=== PATIENT | female | born 1985 | race Caucasian/White ===

== ENCOUNTER → 2017-12-13 18:28 | Outpatient (CLI) | payer BC, SELFPAY ==
[2017-12-13 12:11] VITALS: BP 104/68; BMI 19.0
--- OUTSIDE RECORDS SUMMARY | 2017-12-13 18:32 | XMS RPT_ITS ---
:1985 Author Organization OHIP Support Name Relationship Address Phone B M [employer] Unavailable [facility] + [place] [address] GESSEL, NIHARIKA Unavailable [address] + [place] [address] B [employer] Unavailable [facility] + [place] [address] GESSEL, NIHARIKA Unavailable [address] + [place] [address] [employer] Unavailable [facility] + [place] [address] CLEMENT ARRIAGA Unavailable [address] + [place] [address] [employer] Unavailable [facility] + [place] [address] CLEMENT ARRIAGA Unavailable [address] + [place] [address] [employer] Unavailable [facility] + [place] [address] CLEMENT ARRIAGA Unavailable [address] + [place] [address] [employer] Unavailable [facility] + [place] [address] CLEMENT ARRIAGA Unavailable [address] + [place] [address] Care Team Providers Name Role Phone Myah Badillo Attending Unavailable Myah Badillo Primary Care Unavailable Myah Badillo Attending Unavailable Myah Badillo Primary Care Unavailable Myah Badillo Attending Unavailable Myah Badillo Primary Care Unavailable Myah Badillo Attending Unavailable Myah Badillo Primary Care Unavailable Hector Dakota Attending Unavailable AbyMyah brown Referring Unavailable AbyLuci brownMyah Primary Care Unavailable AbelardoPrem hawkins Attending Unavailable Aby, Myah Referring Unavailable Aby, Myah Primary Care Unavailable PROBLEMS PROBLEMS DATE TYPE CONDITION / CODE ATTENDING STATUS SOURCE 12/13/2017 Unknown J02.9 - Acute Prem Melendez Active [facility] pharyngitis, Community unspecified / Hospital J02.9(ICD-10) Repository 12/13/2017 Unknown J06.9 - Acute Prem Melendez Active [facility] upper respiratory Community infection, Hospital unspecified / Repository J06.9(ICD-10) 08/25/2017 Unknown GENERALIZED Aby, Active [facility] ABDOMINAL PAIN / [facility] R10.84(ICD-10) Hospital Repository 07/22/2017 Unknown EPIGASTRIC PAIN / Aby, Active [facility] R10.13(ICD-10) [facility] Repository PROCEDURES PROCEDURES No Procedure Records FoundRESULTS RESULTS URGENT CARE VISIT Observed: 12/13/2017 Status: F Source: [place] 12:26 PM [facility] REPOSITORY Now [id number] [phone] VISITDate of Service: 12/13/17MR#: [id number] Acct: [id number]: BRENNEN ARRIAGA Rep #: [id number]: 1985 Provider: Prem Recinos/Sex: 32/F [facility] [place]Status: SignedIntakeVital Signs12/13/17 Height 5 ft 3.5 inIntakeVisit Reasons: SORE THROAT, EAR ACHEChief Complaint: sore throat, ear acheIs patient in pain?: NoAllergiesciprofloxacin [From Cipro] Allergy (Verified 12/13/17 12:12)Anaphylaxisciprofloxacin HCl [From Cipro] Allergy (Verified 12/13/17 12:12)AnaphylaxisMedicationsbuspirone 15 mg tablet 15 mg PO BID 11/25/17 [ History Confirmed 12/13/17]pantoprazole 40 mg tablet,delayed release 40 mg PO QDAY [History Confirmed 12/13/17]PFSHMedical HistoryAbdominal pain (Acute)Acid reflux (Acute)Anxiety (Acute)Diarrhea (Acute)Factor 5 Leiden mutation, heterozygous (Acute)Nausea AND vomiting (Acute)history right ankle surgery (Acute 2008) Family HistoryFather Bleeding disorderBrother Bleeding disorderGrandfather DiabetesHeart diseaseHigh cholesterolGrandmother High cholesterolHypertensionMother High cholesterolHypertensionSocial HistorySmoking Status: Never smokeralcohol intake: neversubstance use type: does not useHPIHPIChief Complaint: sore throat, ear acheDetails: BRENNEN ARRIAGA, is a 32 F who presents to the office today for initial evaluation2-3 day history of progressively worsening sore throat and bilateral earache. Patient notes nonasal congestion or facial pressure and no postnasal drip. She notes no complaints of fever,chills, sweats, rash, chest pain/shortness of breath. She is non-smoker. She notes no otherfamily members with similar signs or symptoms in her household. She notes no other associatedsymptoms and no other alleviating or aggravating factorsROSConstConstitutional: Positive for chills;no fever(s), night sweats, body ache, abnormal sleep pattern or excessive sweatingEyesEyes: No change in visionENTENT: Positive for ear pressure and sore throat;no abnormal hearing, ear pain, ear discharge, hearing loss, post nasal drip or sinus pressureRespRespiratory: No cough or chest congestionCardioCardiology: No excessive sweating, chest pain at rest, chest pain with exertion, shortness ofbreath, dyspnea on exertion, irregular heart rhythm, generalized swelling or leg pain withexertionGastroGI: No abdominal pain, change in stool character or change in bowel habitsMuscMusculoskeletal: No joint pain, back pain or limited range of motionSkinSkin: No change in hair, sores or rashNeuroNeurology: No abnormal speech, abnormal movements or abnormal hearingPsychPsychiatric: No abnormal sleep patternEndoEndocrine: No change in body appearance, cold intolerance, heat intolerance or excessivesweatingAller/ImmAllergy/Immunologic: No food intoleranceHema/LympHematologic/Lymphatic: No easy bruisingExamConstGeneral: cooperative, healthy appearing, no acute distress, comfortableNutritional Appearance: average body habitusOrientation: alert, awake, oriented o9YGAOYRque: normal to inspectionEars: hearing grossly normal bilaterally, external ears normal, TM's normal bilaterally, EAC'snormalNose: external nose normal, nares normal, septum normal , nasal discharge clearEyesGeneral: appearance normal, both eyes and all related structuresNeckNeck: normal visual inspection, full ROM, no meningeal signs, supple, lymphadenopathyNeck mass: NoThyroid: thyroid normalLymphatic: no lymphadenopathy notedChestChest palpation AND inspection: normal inspection of the chestRespEffort AND Inspection: normal respiratory effort, able to speak in complete sentences , symmetricchest movement, no coughAuscultation: Bilateral: Clear to AuscultationCardioPalpation: normal PMIRate: regular rateRhythm: regular rhythmHeart Sounds: S1 normal, S2 normal, no gallops, no murmurs, no rubsPulses: radial pulses presentGIInspection: normal to inspectionPalpation: soft, no hepatosplenomegalySkinGeneral: no rashes or lesions notedNeuroGeneral: alert, awake, oriented x3, gait normalCognition: normal cognitionSpeech: speech normalGait: normal gaitMotor: muscle tone normal throughoutSensory Exam: no sensory deficits notedExtremGeneral: normal to inspectionPsychAppearance: grossly normalMental Status: mental status grossly normalMood: congruent moodAffect: normal affectSpeech and Movement: speech and movement normalAttitude: cooperativeThought Process: normalThought Content: normalJudgment: judgment goodResultsBMSRAPIDSTREPAOffice Rapid Strep A Negative Last Edit by Purnima Ramos on 12/13/17 12: 25Assessment AND PlanProblems1. URI (upper respiratory infection) J06.92. Pharyngitis J02.9PlanPatient is aware today's rapid strep test was negative therefore throat culture sent to lab forfurther evaluation.Clear fluids, rest, Advil/Tylenol as needed for symptomatic relief.Follow-up with PCP in 7-10 days should symptoms not improve, sooner should symptoms worsen orany other concerns develop.This note was generated with Offerboxxation software. It may contain incorrect words,spelling, and punctuation that were not noted in checking the note before signing.OrdersOrders:MedicationsDiscontinued:naproxen Discontinued Reason: Pt250 - 500 mg PO Q8H PRN PRN MILD PA Purnima Orlando longer taking IN (-01/15)CodingLevel of Care CodeOff vis,new,level 3DiagnosesURI (upper respiratory infection) J06.9Pharyngitis J02.9012/13/17 1226 <Electronically signed by Prem NAZARIO>Date Prem Melendez PACosigner Signature: Date (if applicable)CC: SURGERY VISIT REPORT Observed: 11/25/2017 Status: F Source: [place] 7:01 PM [facility] REPOSITORY [facility] [address] [place] [address] [id number] VISITDate of Service: 11/25/17MR#: [id number] Acct: [id number]: BRENNEN ARRIAGA Rep #: [id number]: 1985 Provider: Dakota Young MDAge/Sex: 32/F [facility] [place]Status: SignedIntakeVital Signs11/25/17 Height 5 ft 4 in11/25/17 Weight: 108 lbIntakeVisit Reasons: upper right quad pain, nausea, had normal u/sInterpreter Required: NoIs patient in pain?: NoAllergiesciprofloxacin [From Cipro] Allergy (Verified 11/25/17 10:31)Anaphylaxisciprofloxacin HCl [From Cipro] Allergy ( Verified 11/25/17 10:31)AnaphylaxisMedicationsNaproxen [Naprosyn] 250 - 500 mg PO Q8H PRN PRN #30 tab 10/10/15 [Rx Confirmed 11/25/17]buspirone 15 mg tablet 15 mg PO BID [History Confirmed 11/25/17]pantoprazole 40 mg tablet,delayed release 40 mg PO QDAY 11/25/17 [History Confirmed 11/25/17]PFSHMedical History Abdominal pain (Acute)Acid reflux (Acute)Anxiety (Acute) Diarrhea (Acute)Nausea AND vomiting (Acute)history right ankle surgery (Acute 2008) Family HistoryFather Bleeding disorderBrother Bleeding disorderGrandfather DiabetesHeart diseaseHigh cholesterolGrandmother High cholesterolHypertensionMother High cholesterolHypertensionSocial HistorySmoking Status: Never smokeralcohol intake: neversubstance use type: does not useHPIHPIHPI: BRENNEN ARRIAGA, is a 32 F who presents to the office today for who is referred by today for surgical consultation regarding epigastric pain with some right upper quadrantpain with radiation to the right back. A written copy of my surgical consult recommendationswill be returned to Dr. Ugalde.The patient states that since the spring 2016 she has been having difficulty. She notes adiscomfort in the left upper quadrant and she notes a discomfort in the right upper quadrantsometimes in the epigastrium it radiates to the right flank. She states that she hadlaboratory that detected H pylori was positive. She states that she underwent a course oftreatment.I have evidence of laboratory dated July 09, 2017 demonstrating a IGG antibody for H.pylori at 1 with normal being 0-0.8. The H. pylori IgA antibody was normal the H. pylori IgMantibody was normalAdditional laboratory data White count 6.5 and hemoglobin 13.5 and hematocrit 41 and a plateletcount of 419,000. BUN was 7 and creatinine 0.71. Liver function tests were normal with atotal bilirubin of 0.5. AST of 14. Amylase of 106. Lipase of 374 with high normal being 393.Sed rate was 1.On July 15, 2017 she had a gallbladder ultrasound. This was normal. On November 22, 2017she had a nuclear medicine hepatobiliary scan. The ejection fraction was 48% felt to benormal. There was some duodenal gastric reflux noted.The patient states that she has lost approximately 15 pounds. She currently is a very pounds.She denies any particular additional stressors in her life. She presents with her father todayand states that she lives with her fatherShe currently still taking pantoprazole 40 mg daily. She states that she exists on crackersand dry cereal. She cannot eat spicy foods.She denies bright red blood per rectum or melena. She occasionally takes Tums.She has never had deep venous thrombosis although because her father was positive for factor VLeiden she was tested and she is also positiveROSGeneralGeneral: Yes weight change;no appetite, fatigue, colon cancer , breast cancer or weaknessHEENTHEENT: No difficulty swallowing, eye injury, eye surgery, swollen glands or hoarsenessEndoEndocrine: No thyroid disease, diabetes mellitus, thyroid cancer, Hair loss, heat intoleranceor cold intoleranceSkinSkin: No rash or changing molesBreastBreast: No left breast lump, right breast lump, nipple discharge, breast pain, abnormalmammogram, abnormal US or breast enlargementMuscMusculoskeletal: No back problems, arthritis, rheumatoid arthritis, gout or joint painCardioCardiovascular: No murmur, pacemaker, heart disease, atrial fibrillation, high blood pressure,heart attack, heart stent, palpitations, shortness of breat with exertion or chest painPsychPsychiatric: Yes anxiety;no depression or hearing voicesRespRespiratory: No shortness of breath, No sleep apnea, No cough , No COPD, No asthma, Noemphysema, No wheezingGastroGastrointestinal: Yes abdominal pain, Yes nausea or vomiting, Yes diarrhea, No constipation, Noblood in stool, Yes acid reflux, No hemorrhoids, No ulcers, Yes gallbladder problem, Noblack,tarry stoolsHemaHematologic: No blood thinners, Yes blood disorders, No bleeding, No anemia, No blood clotsNeuroNeurologic: No system reviewed and no additional complaints, except as docu, No as per HPI, Noabnormal walking, No abnormal hearing, No abnormal movements, No abnormal speech, No behavioralchanges, No burning sensations, No confusion, No seizure-like activity, No unsteadiness, Nodizziness, No localized weakness, No frequent falls, No headache(s), No lack of coordination, No loss of vision, No memory loss, No numbness, No other visual disturbances, No radiatingpain, No restless legs, No sensory deficit, No fainting, No tingling, No tremor(s), Noweakness, No otherExamConstGeneral: cooperative, healthy appearingNutritional Appearance: underweightOrientation: alert, oriented h2SLLWFKxpu: normal to inspectionMouth: oral mucosae normalEyesGeneral: appearance normal, both eyes and all related structuresNeckNeck: normal visual inspectionNeck mass: NoCarotids: normal carotid upstroke, no bruitsLymphatic: no lymphadenopathy notedChestChest palpation AND inspection: normal inspection of the chestBreast Palpation: No nipple dischargeRespEffort AND Inspection: normal respiratory effortAuscultation: clear to auscultation bilaterallyOther: No percussion tenderness to her backCardioRate: regular rateRhythm: regular rhythmHeart Sounds: no murmursGIPalpation: soft, no hepatosplenomegaly, no pulsatile massesAuscultation: normal bowel soundsGUOther: No gross inguinal defectNeuroCranial Nerves: CN's II-XI intact bilaterallyExtremGeneral: no calf tendernessPsychAffect: anxious affect (Mildly anxious affect)Assessment AND PlanProblems1. Epigastric pain [id number]-[id number] female who is noting epigastric with some right upper quadrant abdominal pain. Shecertainly appears to be underweight. She has had the acute weight loss as noted. Liverfunction tests gallbladder ultrasound and hepatobiliary scan all unremarkable.Etiology to this patient's discomfort is not immediately clear. I believe based upon theintolerance to food that an upper endoscopy is warranted. The hepatobiliary scan diddemonstrate to duodenal gastric reflux. Perhaps she has a degree of bile gastritis. Irecommend very careful inspection with upper endoscopy. Will anticipate duodenal and gastricand esophageal biopsies.The patient's personal/social dynamics are not clear. I am not aware whether there could be apsychosocial overlay as well but I will defer to primary care Dr. Fernández certainly appreciate the kind opportunity of assisting with her surgical careCc: Dr. Harini Young M.D., F.A.C.S.OrdersOrders:CodingLevel of Care CodeComprehensive,moderateDiagnosesEpigastric pain R10.13Abdominal location: hegfzoktpt34/18/181900 <Electronically signed by Dakota Young MD> Date [place] [facility] [place]: Date (if applicable)CC: Myah Badillo DO HEPATOBILLIARY IMAGING Observed: 11/22/2017 Status: F Source: [place] 12:29 PM [facility] REPOSITORY [facility]ITALIm[facility] [address] [place] [address]Chkellerhrjxtp ImagingMR#: [id number] Acct: [id number]: BRENNEN ARRIAGA Rep #: [id number]: 1985 F 32 From: Osmin Brizuela DOPCP: Myah Badillo DO Status: REG CLIStudy: Hepatobilliary Imaging Date of Exam: 11/22/17Exam# [id number] Ordering Dr: Myah Badillo DOCLINICAL:32-year-old female with reported history of abdominal pain.RADIONUCLIDE HEPATOBILIARY SCINTIGRAPHYCOMPARISON:Previous non-CCK hepatobiliary scintigraphy study dated 08/16/2017FINDINGS:Following the intravenous administration of 5.5 mCi of Tc Mebrofenin,hepatobiliary images reveal:1. Relatively prompt and homogeneous radiopharmaceutical concentration isnoted by a normal sized liver. No parenchymal defects are identified.2. Gallbladder activity is identified at 15 minutes postradiopharmaceutical administration.3. Small intestinal tract is not visualized during 60 minutes of pre-CCKsequential image acquisition. Small bowel is defined followingcholecystokinin infusion.4. Washout of the radiopharmaceutical by the hepatic parenchyma appearsqualitatively normal.Cholecystokinin (0.02 ug/kg ) was administered intravenously over b06-idhyus period. The post CCK gallbladder ejection fraction calculated at30 minutes following Cholecystokinin administration was noted to be 48.0 %(normal greater than 35%). During 30 minutes of post CCK imaging, there isno scintigraphic evidence of reflux of the radiotracer into the commonhepatic duct or refilling of the gallbladder. There is evidence of post CCKduodenal-gastric reflux. NM/Hepatobilliary ImagingIMPRESSION:1. A gallbladder ejection fraction calculated to be greater than 35%following the administration of Cholecystokinin makes the probability offunctional hepatobiliary disease (gallbladder and/or sphincter of Oddidyskinesia) and/or organic hepatobiliary disease (chronic acalculouscholecystitis and/or cystic duct syndrome) to be low. (Windy Dill et al,Journal of Nuclear Medicine 32:1695, 1991).2. 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ITALIm[facility] [address] [place], [place] [address]Amsusxrrcssvqs ImagingMR#: [id number] Acct: [id number]: BRENNEN ARRIAGA Rep #: [id number]: 1985 F 31 From: Osmin Brizuela DOPCP: Myah Badillo DO Status: REG CLIStudy: Hepatobilliary Imaging Date of Exam: 08/16/17Exam# [id number] Ordering Dr: Myah Badillo DOCLINICAL:31-year-old female with reported history of epigastric pain.RADIONUCLIDE HEPATOBILIARY SCINTIGRAPHYCOMPARISON:Gallbladder ultrasound report 07/15/2017FINDINGS:Following the intravenous administration of 5.6 mCi of 99m Tc Mebrofenin,hepatobiliary images reveal:1. Relatively prompt and homogeneous radiopharmaceutical concentration isnoted by a normal sized liver. No parenchymal defects are identified.2. Gallbladder activity is identified at 15 minutes postradiopharmaceutical administration.3. Small intestinal tract is observed at 30 minutes following tracerinjection.4. Washout of the radiopharmaceutical by the hepatic parenchyma appearsqualitatively normal.The patient did not tolerate fatty meal ingestion. NM/Hepatobilliary ImagingIMPRESSION:1. Visualization of the gallbladder within 60 minutes postradiopharmaceutical administration excludes acute cholecystitis with 97%certitude. (Sridhar et al , Nucl Med Heather Padma Press pg. 35, 1981).2. The post fatty meal component of the examination was not completed asdescribed above.Electronically Signed:Osmin Brizuela DO at 23:24 EDTTel , Service support , QR: Myah Badillo DO Maintenance Scheduler:Signed GALLBLADDER Observed: 07/15/2017 Status: F Source: [place] 9:22 AM [facility] REPOSITORY [facility]ITAL[facility] [id number] [place] [id number]#: [id number] Acct: [id number]: BRENNEN ARRIAGA Rep #: [id number]: 1985 F 31 From: Vijay Cuevas MDPCP: Myah Badillo DO Status: REG CLIStudy: Gallbladder Date of Exam: Exam# [id number] Ordering Dr: Myah Badillo DOSTUDY: ABDOMINAL ULTRASOUND - RIGHT UPPER QUADRANTREASON FOR VISIT: Female, 31 years old. Epigastric pain.TECHNIQUE: Ultrasound evaluation of the right upper quadrant wasperformed with real-time and static mariscal-scale imaging.TECHNICAL QUALITY: Adequate.COMPARISON: None. FINDINGS:Liver: The liver measures 16.4 cm. There is normal echogenicity of theliver. The bile ducts are within normal limits. There is hepatic colorflow. The direction of portal flow is hepatopetal. There is nodemonstrated mass lesion.Gallbladder: Normal distended gallbladder. The gallbladder wall measures2.0 mm. There is a negative sonographic Ignacio's sign. There is nopericholecystic fluid. There are no gallstones.Common Bile Duct (C.B.D.): The common bile duct measures 3.2 mm.Pancreas: Normal size of the head, body and tail of the pancreas. Thereis normal echogenicity of the pancreas. There is no demonstratedpancreatic mass or cyst.Right Kidney: Normal size of the right kidney. The right kidney ipymagdq08.2 cm x 5.2 cm x 4.0 cm. Normal renal cortex. The right cortex measures1.0 cm. There is no demonstrated renal mass or cyst. There is no righthydronephrosis. ORDER #: [id number] US/GallbladderIMPRESSION:Normal right upper quadrant ultrasound examination.Electronically Signed:Vijay Cuevas MD at 12:36 EDTTel [phone], Service support , AP: Myah Badillo DO Maintenance Scheduler:Signed COMPREHENSIVE METABOLIC Collected: 07/09/2017 Status: F Source: [place] 4:03 PM [facility] REPOSITORY Order Comment: Comments: [id number] HELICOBACTER PYLORI AB IGA IGG IGM RF TYPE CODE TESTS RESULT OUT OF RANGE REFERENCE UNITS LAB L501.0100 Normal 70-110 mg/dL GLU 79 LAB L501.1000 Normal 7-18 mg/dL BUN 7 LAB L501.1100 Normal 0.55-1.02 mg/dL 0.71 CREAT,SERUM Result Comment: The validity of the calculated GFR AND GFRAA in patients over70 years has not been determined. Clinical correlation isessential. LAB L501.1110 Normal >60 mL/min EST GFR 104 Result Comment: Non- GFR Calc LAB L501.1115 Normal >60 mL/min EST GFR - 125 AA Result Comment: GFR Calc LAB L501.1300 Low 10-20 RATIO BUN/CRE 9.9 LAB L501.1500 Normal 6.4-8.2 g/dL T PROT 7.8 LAB L501.1800 Normal 3.4-5.0 g/dL ALB 4.2 LAB L501.1950 High 2.3-3.5 g/dL GLOB 3.6 LAB L501.2000 Normal 0.9-2.4 RATIO A/G 1.2 LAB L501.2200 Normal 8.5-10.1 mg/dL CA 9.0 LAB L501.4100 Low 15-37 U/L AST 14 LAB L501.4305 Normal 45-117 U/L ALK P 55 LAB L501.4405 Normal 12-78 U/L ALT 17 LAB L501.4600 Normal 0.20-1.00 mg/dL T BILI 0.50 LAB L501.5300 Normal 136-145 mmol/L NA 141 LAB L501.5600 Low 3.5-5.1 mmol/L K 3.4 LAB L501.5900 Normal 98-107 mmol/L CL 106 LAB L501.6100 Normal 21.0-32.0 mmol/L CO2 28.0 LAB L501.6200 Normal 5-15 GAP 7 Performed By: #### L500.4050, L501.2400, L501.2450 ####[facility] [address] [place] [address], [place], [address] AMYLASE Collected: 07/09/2017 Status: F Source: [place] 4:03 [facility] REPOSITORY Order Comment: Comments: [id number] HELICOBACTER PYLORI AB IGA IGG IGM RF TYPE CODE TESTS RESULT OUT OF RANGE REFERENCE UNITS LAB L501.2400 Normal 25-115 U/L DAVID 106 Performed By: #### L500.4050, L501.2400, L501.2450 ####[facility] [address] [place] [address], [place], [address] LIPASE Collected: 07/09/2017 Status: F Source: [place] 4:03 PM [facility] REPOSITORY Order Comment: Comments: [id number] HELICOBACTER PYLORI AB IGA IGG IGM RF TYPE CODE TESTS RESULT OUT OF RANGE REFERENCE UNITS LAB L501.2450 Normal 73-393 U/L LIPASE 374 Performed By: #### L500.4050, L501.2400, L501.2450 ####[facility] [address] [place] [address], [place], [address] CBC W/DIFF, AUTOMATED Collected: 07/09/2017 Status: F Source: [place] 4:03 PM [facility] REPOSITORY TYPE CODE TESTS RESULT OUT OF RANGE REFERENCE UNITS LAB L100.1000 Normal 4.4-11.0 K/mm3 WBC 6.5 LAB L100.1200 Normal 4.2-5.4 M/mm3 RBC 4.43 LAB L100.1300 Normal 12.0-15.0 g/dl HGB 13.5 LAB L100.1400 Normal 37-47 % HCT 41.0 LAB L100.1500 Normal 81-99 fL MCV 92.6 LAB L100.1600 Normal 27.0-32.0 pg MCH 30.5 LAB L100.1700 Normal 32-36 g/gl MCHC 32.9 LAB L100.1810 Normal 11.6-14.6 % RDW 12.2 CV LAB L100.1820 Normal 35.1-43.9 fl RDW 40.7 SD LAB L100.1900 Normal 150-450 K/mm3 PLT 419 LAB L100.2000 Normal 6.2-12.0 fl MPV 10.1 LAB L100.2100 Normal 47-70 % NEUT% 48.7 LAB L100.2200 High 19-41 % LY% 41.7 LAB L100.2300 Normal 0-10 % MONO% 6.4 LAB L100.2400 Normal 0-5 % EO% 2.1 LAB L100.2500 Normal 0-1 % BASO% 0.9 LAB L100.2550 Normal 0.0-0.9 % IM 0.200 GRAN % Result Comment: IG% - Immature Granulocytes (promyelocytes, myelocytes andmetamyelocytes) > 1% indicates that a LEFT SHIFT is Present. LAB L100.2620 Normal 2.0-7.7 X10 3/uL Absolute Neut 3.2 LAB L100.2720 Normal 0.83-4.51 X10 3/ul Absolute Lymph 2.72 Performed By: #### L100.0100, L101.9900 ####[facility] B[address], [place], [address] ERYTHROCYTE SED RATE Collected: 07/09/2017 Status: F Source: [place] 4:03 PM [facility] REPOSITORY TYPE CODE TESTS RESULT OUT OF RANGE REFERENCE UNITS LAB L102.0000 Normal 0-20 mm/hr SED 1 RATE Performed By: #### L100.0100, L101.9900 ####Cookie [facility] Ktjxxueovh22[address] Jose Miguel Higgins. [place], [address] MISCELLANEOUS LAB Collected: 07/09/2017 Status: F Source: [place] PROCEDURE 4:03 PM [facility] REPOSITORY Order Comment: Comments: [id number] HELICOBACTER PYLORI AB IGA IGG IGM RFTest(s) Ordered: [id number] HELICOBACTER PYLORI AB IGA IGG IGM RF TYPE CODE TESTS RESULT OUT OF RANGE REFERENCE UNITS LAB L801.1541 Normal [facility] LAB TEST Result Comment: TEST RESULT UNITS REFERENCE INTERVALH pylori, IgM, IgG, IgA AbH. pylori, IgG Abs 1.0 High U/mL 0.0 - 0.8Results verified by repeat testing Negative <0.9 Indeterminate 0.9 - 1.0 Positive >1.0H. pylori, IgA Abs <9.0 units 0.0 - 8.9 Negative <9.0 Equivocal 9.0 - 11.0 Positive >11.0H pylori, IgM Abs < 9.0 units 0.0 - 8.9 Negative <9.0 Equivocal 9.0 - 11.0 Positive >11.0Disclaimer:This test was developed and its performance characteristicsdetermined by [employer]. It has not been cleared or approvedby the Food and Drug Administration. __ TESTING PERFORMED AT [facility]. ORIGINAL REPORT ON FILE IN LAB CONTAINS ADDITIONAL TEST SITE INFORMATION. Performed By: #### L801.1541 ####Cookie [facility] Ibzrevlgjl3802 [address] Miguel Higgins. [place], [address] ALLERGIES ALLERGIES DATE TYPE / NAME / CODE REACTION SEVERITY SOURCE CODE 12/13/2017 Drug ciprofloxacin Anaphylaxis Unknown [place] Allergy/41 HCl/[id number](RXNO Community [id number]([facility]) Repository 12/13/2017 Drug ciprofloxacin/F0060 Anaphylaxis Unknown [place] Allergy/41 61130(RXNORM) Community [id number]([facility]) Repository 08/29/2015 Drug ciprofloxacin Anaphylaxis [place] Allergy/41 HCl/[id number](RXNO Community 1507818([facility]) Repository 08/29/2015 Drug ciprofloxacin/F0060 Anaphylaxis [place] Allergy/41 75531(RXNORM) Community 2582867([facility]) Repository ENCOUNTERS ENCOUNTERS ADMIT/DISCHARGE ACCOUNT ADMITTING ENCOUNTER LOCATION SOURCE NUMBER CLASS 12/13/2017/ [id number] [facility] 11/25/2017/ [id number] Ambulatory BMSBuilding:B [place] 8 1 MS.[facility] Repository 11/22/2017 [id number] Ambulatory [place] Cookie 6 [facility] ing:[place] Repository 08/16/2017 [id number] Ambulatory [place] Cookie 8 [facility] ing:[place] Repository 07/15/2017 [id number] Ambulatory [place] 7 [facility] ing:[place] Repository 07/09/2017 [id number] Ambulatory Cookie Cookie 3 [facility] ing:MTLAB Repository PAYERS PAYERS ENCOUNTER GUARANTOR PAYER SUBSCRIBER SOURCE 12/13/2017 BRENNEN Primary BRENNEN [place] [id number] Insurance:ANTHEMPolic LUISLEYDOB: [facility] RDAPPLE y Number: [id number] [id number] Repository [address]Nai: 330) Date:8268-18-03SV [phone] () [id number], [place] [address]RD: 12/13/2017 Secondary NOT GIVENUNK Cookie Insurance:SELF PAY [facility] Number: Effective Repository Date:2017-12-13 11/25/2017 BRENNEN Primary BRENNEN Cookie [id number] Insurance:ANTHEMPolic KELLEYDOB: Community MIRIAM RDAPPLE y Number: [id number] [place], [place] [id number] Repository [address]Hay: (330) Date:0941-52-60BP [phone] (HP) 669400UQGEXAGLUISA AVILEZ [address]DZ: 11/25/2017 Secondary NOT GIVENUNK Cookie Insurance:SELF PAY [facility] Number: Effective Repository Date:2017-11-12 11/22/2017 Clement R Primary Clement R Cookie [id number] Insurance:ANTHEMPolic KelleyDOB: Community [address] RdApple y Number: [id number] [place], [place] [id number] Repository [address]Siq: (330) Date:4138-95-29SU [phone] () 819487TZXDBST, [place] [address]XU: 11/22/2017 Secondary NOT GIVENUNK [place] Insurance:SELF PAY [facility] Number: Effective Repository Date:2017-11-18 08/16/2017 CLEMENT R Primary CLEMENT KELLEYDOB: [place] [id number] Insurance:ANTHEMPolic [id number] [facility] MIRIAM RDAPPLE y Number: [place], [place] [id number] Repository [address]Rdm: (330) Date:8113-49-83AF [phone] (HP) [id number] AVILEZ [address]IJ: 07/15/2017 CLEMENT R Primary CLEMENT KELLEYDOB: [place] [id number] Insurance:ANTHEMPolic [id number] Community MIRIAM RDAPPLE y Number: [place], [place] [id number] Repository [address]Ako: (330) Date:[phone] (HP) [id number], [place] [address]UU: 07/09/2017 CLEMENT R Primary CLEMENT SMITHLEYDOB: [place] [id number] Insurance:ANTHEMPolic [id number] Community MIRIAM RDAPPLE y Number: [place], [place] [id number] Repository [address]Ila: (048) Date:[phone] () [id number], [place] [address]CS:
== END ==
PROVIDERS: Family Provider Internal Medicine; PCP Internal Medicine; Visit Provider Physician Assistant
DX: J02.9 Acute pharyngitis, unspecified (principal)
CPT/HCPCS: 87081

== ENCOUNTER 2017-12-17 08:28 | Day surgery (SDC) | payer BC, SELFPAY ==
[2017-12-13 12:11] VITALS: BP 104/68; BMI 19.0
[2017-12-17] VITALS (7 sets, daily range): BP systolic 101–118; BP diastolic 75–85; PULSE 61–74; RESP 16; TEMP 37–37.4; O2SAT 98–100; BMI 18.8
--- NOTE | 2017-12-17 | IMM_PTH ---
PATIENT: BRENNEN ARRIAGA LOC: EN U#:[id number] AGE/SX: 32/F ROOM: RE12/17/[address]: Dr. Dakota Young MD : 1985 BED: DIS: 12/17/2017 SPEC #: [id number] RECD: 12/20/17 11:39 STATUS: TRANG REEber #: [id number] JERAMY: 12/17/17 00:[address]: Dakota Young DEPT: IMMUNOHISTOCHEMISTRY RECD BY: Livier Garza ENTERED: 12/20/17 11:40 SP TYPE: IMMUNO OTHR DR: Dr. Myah Badillo, DO Tissues: B - Pylorus Procedures: H Pylori (initial) PHYSICIAN & INSTITUTION [place] [address] SPECIMEN INFORMATION: Tissue Source: B ? Prepyloric polyp Clinical Info: Nausea/vomiting Specimen Number: [id number] CPT code: 98266 METHODOLOGY: Deparaffinized sections of prefer/formalin-fixed tissue or PAP/DQ stained slides are incubated with monoclonal/polyclonal antibodies/oligonucleotide probes. Localization is made via biotin free immunoperoxidase method. Appropriate controls are performed and reacted as expected. Results on target cell population are indicated in the following table: RESULTS: ANTIBODY / CLONE RESULT Block B H Pylori (polyclonal) negative These tests were developed and their performance characteristics determined by [facility]. They may not have been cleared or approved by the U.S. Food and Drug Administration. The FDA has determined that such clearance or approval is not necessary. INTERPRETATION: B. Prepyloric polyp, biopsy: Negative for Helicobacter pylori organisms. AM:harmony 12/20/17
--- OUTSIDE RECORDS SUMMARY | 2017-12-17 08:33 | XMS RPT_ITS ---
:1985 Author Organization OHIP Support Name Relationship Address Phone B [employer] Unavailable [address] + [place] [address] GESSEL, NIHARIKA Unavailable 1 + [place] [address] B [employer] Unavailable [address] + [place] [address] GESSEL, NIHARIKA Unavailable 1 + [place] [address] B [employer] Unavailable [address] + [place] [address] GESSEL, NIHARIKA Unavailable 1 + [place] [address] B [employer] Unavailable Rachel Joyce [address] + [place] [address] GESSEL, NIHARIKA Unavailable 1 + [place] [address] B [employer] Unavailable [address] + [place] [address] CLEMENT ARRIAGA Unavailable [address] + [place] [address] B [employer] Unavailable [address] + [place] [address] CLEMENT ARRIAGA Unavailable [address] + [place] [address] B [employer] Unavailable [address] + [place] [address] CLEMENT ARRIAGA Unavailable [address] + [place] [address] B [employer] Unavailable [address] + [place] [address] CLEMENT ARRIAGA Unavailable [address] + [place] [address] Care Team Providers Name Role Phone Myah Badillo Attending Unavailable Aby, Myah Primary Care Unavailable Aby, Myah Attending Unavailable Aby, Myah Primary Care Unavailable Aby, Myah Attending Unavailable Aby, Myah Primary Care Unavailable Aby, Myah Attending Unavailable Aby, Myah Primary Care Unavailable Cebul, Dakota Attending Unavailable Aby, Myah Referring Unavailable Aby, Myah Primary Care Unavailable Cebul, Dakota Attending Unavailable Cebul, Dakota Referring Unavailable Aby, Myah Primary Care Unavailable Wyles, Prem Attending Unavailable Aby, Myah Referring Unavailable Aby, Myah Primary Care Unavailable Wyles, Prem Attending Unavailable Aby, Myah Primary Care Unavailable Wyles, Prem Referring Unavailable PROBLEMS PROBLEMS DATE TYPE CONDITION / CODE ATTENDING STATUS SOURCE 12/14/2017 Unknown J02.9 - Acute Prem Melendez Active [place] pharyngitis, Community unspecified / Hospital J02.9(ICD-10) Repository 12/13/2017 Unknown J06.9 - Acute Prem Melendez Active [place] upper respiratory Community infection, Hospital unspecified / Repository J06.9(ICD-10) 08/25/2017 Unknown GENERALIZED Aby, Active [place] ABDOMINAL PAIN / [facility] R10.84(ICD-10) Hospital Repository 07/22/2017 Unknown EPIGASTRIC PAIN / Aby, Active [place] R10.13(ICD-10) [facility] Hospital Repository PROCEDURES PROCEDURES No Procedure Records FoundRESULTS RESULTS Observed: 12/13/2017 Status: F Source: [place] CULTURE, R/O STREP A 12:30 PM [facility] REPOSITORY SHANTAL CultureNo Streptococcus group A isolated. * This cultures intended use is to screen for Beta Streptococcus A only. All other pathogens and potential pathogens will not be screened for or reported. If a complete workup of all potential pathogens is indicated an order for a routine throat culture is required. Performed By: #### M100.010 ####[facility] [address] [place], [address] URGENT CARE VISIT Observed: 12/13/2017 Status: F Source: [place] REPORT 12:26 PM [facility] REPOSITORY Now Klqqkj[address] [id number] VISITDate of Service: 12/13/17#: [id number] Acct: [id number]: BRENNEN ARRIAGA Rep #: [id number]: 1985 Provider: Prem Recinos/Sex: 32/F Location: [facility].NOWStatus: SignedIntakeVital Signs12/13/17 Height 5 ft 3.5 inIntakeVisit [...] Appearance: average body habitusOrientation: alert, awake, oriented [id number]: normal to inspectionEars: hearing grossly normal bilaterally, [...] other concerns develop.This note was generated with [employer] dictation software. It may contain incorrect words,spelling, and punctuation that were not noted in checking the note before signing.OrdersOrders:MedicationsDiscontinued:naproxen Discontinued Reason: Pt250 - 500 mg PO Q8H PRN PRN MILD PA Purnima Ramosno longer taking IN (-01/15)CodingLevel of Care CodeOff vis,new,level 3DiagnosesURI (upper respiratory infection) J06.9Pharyngitis J02.9012/13/17 1226 <Electronically signed by Prem NAZARIO>Date Prem VALLESosigner Signature: Date (if applicable)CC: SURGERY VISIT REPORT Observed: 11/25/2017 Status: F Source: [place] 7:01 [facility] REPOSITORY [place] [facility] [address] [facility] [address] [place] [address] [phone] VISITDate of Service: 11/25/17MR#: [id number] Acct: [id number]: BRENNEN ARRIAGA Rep #: [id number]: 1985 Provider: Dakota Young MDAge/Sex: 32/F Location[facility]WSAStatus: SignedIntakeVital Signs11/25/17 Height 5 ft 4 in11/25/17 [...] 15 pounds. She currently is a very absioap122 pounds.She denies any particular additional stressors in [...] cooperative, healthy appearingNutritional Appearance: underweightOrientation: alert, oriented [id number]: normal to inspectionMouth: oral mucosae normalEyesGeneral: appearance [...] (Mildly anxious affect)Assessment AND PlanProblems1. Epigastric pain R10.07Twes84-cpyn-usn female who is noting epigastric with some [...] F.A.C.S.OrdersOrders:CodingLevel of Care CodeComprehensive,moderateDiagnosesEpigastric pain R10.13Abdominal location: qghxnmjtse35/18/181900 <Electronically signed by Dakota Young MD> Date [facility] Signature: Date (if applicable)CC: Myah Badillo DO HEPATOBILLIARY IMAGING Observed: 11/22/2017 Status: F Source: [place] 12:29 PM [facility] [address] [place] [place] [address]Uyxfxszhzwlpds ImagingMR#: [id number] Acct: [id number]: BRENNEN ARRIAGA Rep #: [id number]: 1985 F 32 From: Osmin Brizuela DOPCP: Myah Badillo DO Status: REG CLIStudy: Hepatobilliary Imaging Date of Exam: 11/22/17Exam# [id number] Ordering Dr: Myah Badillo DOCLINICAL:32-year-old female with [...] (0.02 ug/kg ) was administered intravenously over x11-lefzbc period. The post CCK gallbladder ejection fraction [...] Dill et al,Journal of Nuclear Medicine 32:1695, 1990).2. 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 asdescribed above.Electronically Signed:Osmin Brizuela DO at 12:06 ESTTel , Service support , AK: Myah Badillo DO Office Coordinator Receptionist: Signed HEPATOBILLIARY IMAGING Observed: 08/16/2017 Status: F Source: [place] 9:42 AM [facility] REPOSITORY [facility] [address] [place] [address]Kgknzrbxjwocqm ImagingMR#: [id number] Acct: [id number]: BRENNEN ARRIAGA Rep #: [id number]: 1985 F 31 From: Osmin Brizuela DOPCP: Myah Badillo DO Status: REG CLIStudy: Hepatobilliary Imaging Date of Exam: 08/16/17Exam# [id number] Ordering Dr: Myah Badillo DOCLINICAL:31-year-old female with [...] at 23:24 EDTTel , Service support , YL: Myah Badillo DO Office Coordinator Receptionist:Signed GALLBLADDER Observed: 07/15/2017 Status: F Source: [place] 9:22 AM [facility] REPOSITORY [facility] Vntdquzv7106 [place] [address]PqeqmbwmilmDA#: [id number] Acct: [id number]: BRENNEN ARRIAGA Rep #: [id number]: 1985 F 31 From: Vijay Cuevas MDPCP: Myah Badillo DO Status: REG CLIStudy: Gallbladder Date of Exam: Exam# [id number] Ordering Dr: Myah Badillo DOSTUDY: ABDOMINAL ULTRASOUND [...] measures2.0 mm. There is a negative sonographic Ginacio's sign. There is nopericholecystic fluid. There are no gallstones.Common Bile Duct (C.B.D.): The common bile duct measures 3.2 mm.Pancreas: Normal size of the head, body and tail of the pancreas. Thereis normal echogenicity of the pancreas. There is no demonstratedpancreatic mass or cyst.Right Kidney: Normal size of the right kidney. The right kidney viipxynf76.2 cm x 5.2 cm x 4.0 cm. Normal renal cortex. The right cortex measures1.0 cm. There is no demonstrated renal mass or cyst. There is no righthydronephrosis. ORDER #: [id number] US/GallbladderIMPRESSION:Normal right upper quadrant ultrasound examination.Electronically Signed:Vijay Cuevas MD at 12:36 EDTTel [phone], Service support , YL: Myah Badillo DO Office Coordinator Receptionist:Signed COMPREHENSIVE METABOLIC Collected: 07/09/2017 Status: F Source: [place] RODARTE 4:03 PM [facility] REPOSITORY Order Comment: Comments: [id number] HELICOBACTER PYLORI AB IGA IGG IGM RF [...] 7 Performed By: #### L500.4050, L501.2400, L501.2450 ####[facility] [address] [place], [address] AMYLASE Collected: 07/09/2017 Status: F Source: [place] 4:03 PM [facility] REPOSITORY Order Comment: Comments: [id number] HELICOBACTER PYLORI AB IGA IGG IGM RF TYPE CODE TESTS RESULT OUT OF RANGE REFERENCE UNITS LAB L501.2400 Normal 25-115 U/L DAVID 106 Performed By: #### L500.4050, L501.2400, L501.2450 ####[facility] [address] [place], [address] LIPASE Collected: 07/09/2017 Status: F Source: [place] 4:03 PM [facility] REPOSITORY Order Comment: Comments: [id number] HELICOBACTER PYLORI AB IGA IGG IGM RF TYPE CODE TESTS RESULT OUT OF RANGE REFERENCE UNITS LAB L501.2450 Normal 73-393 U/L LIPASE 374 Performed By: #### L500.4050, L501.2400, L501.2450 ####[facility] [address] [place] [place], [address] CBC W/DIFF, AUTOMATED Collected: 07/09/2017 Status: F Source: [place] 4:03 PM [facility] REPOSITORY TYPE CODE TESTS RESULT OUT OF [...] Lymph 2.72 Performed By: #### L100.0100, L101.9900 ####[facility] [address] [place], [address] ERYTHROCYTE SED RATE Collected: 07/09/2017 Status: F Source: [place] 4:03 PM [facility] REPOSITORY TYPE CODE TESTS RESULT OUT OF RANGE REFERENCE UNITS LAB L102.0000 Normal 0-20 mm/hr SED 1 RATE Performed By: #### L100.0100, L101.9900 ####[facility] [address] [place] [place], [address] MISCELLANEOUS LAB Collected: 07/09/2017 Status: F Source: [place] PROCEDURE 4:03 PM [facility] REPOSITORY Order Comment: Comments: [id number] HELICOBACTER PYLORI AB IGA IGG IGM RFTest(s) Ordered: [id number] HELICOBACTER PYLORI AB IGA IGG IGM RF TYPE CODE TESTS RESULT OUT OF RANGE REFERENCE UNITS LAB L801.1541 Normal [facility] LAB TEST Result Comment: TEST RESULT UNITS [...] was developed and its performance characteristicsdetermined by [facility]. It has not been cleared or approvedby the Food and Drug Administration. __ TESTING PERFORMED AT [facility]. ORIGINAL REPORT ON FILE IN LAB CONTAINS ADDITIONAL TEST SITE INFORMATION. Performed By: #### L801.1541 ####[facility] [address] [place], [address] ALLERGIES ALLERGIES DATE TYPE / NAME / CODE REACTION SEVERITY SOURCE CODE 12/13/2017 Drug ciprofloxacin Anaphylaxis Unknown [place] Allergy/41 [id number] Repository 12/13/2017 Drug ciprofloxacin/F0060 Anaphylaxis Unknown [place] Allergy/41 00049(RXNORM) [facility] [id number]([facility]) Repository 08/29/2015 Drug ciprofloxacin Anaphylaxis [place] Allergy/41 HCl/[id number]([facility] [id number] [place] [address]) Repository 08/29/2015 Drug ciprofloxacin/F0060 Anaphylaxis [place] Allergy/41 35850(RXNORM) [facility] 7554003([facility]) Repository ENCOUNTERS ENCOUNTERS ADMIT/DISCHARGE ACCOUNT ADMITTING ENCOUNTER LOCATION SOURCE NUMBER CLASS 12/17/2017 [id number] Ambulatory [facility] 6 [facility] ing:EN Repository 12/13/2017 [id number] Ambulatory [facility] 1 [facility] ing:LABSPEC Repository 12/13/2017/ [id number] Ambulatory BMSBuilding:B [place] 8 9 MS.NOW [facility] Repository 11/25/2017/ [id number] Ambulatory BMSBuilding:B [place] 8 1 MS.WSA [facility] Repository 11/22/2017 [id number] Ambulatory [place] Cookie [address] [facility] ing:NM Repository 08/16/2017 [id number] Ambulatory [place] 8 [facility] ing:NM Repository 07/15/2017 [id number] Ambulatory [place] 7 [facility] ing:[facility] Repository 07/09/2017 [id number] Ambulatory [place] 3 [facility] ing:[facility] Repository PAYERS PAYERS ENCOUNTER GUARANTOR PAYER SUBSCRIBER SOURCE 12/17/2017 BRENNEN Primary BRENNEN Cookie [id number] Insurance:ANTHEMPolic KELLEYDOB: Community [address] y Number: [id number] [id number] Repository [address]Ttt: (330) Date:6892-50-53NR [phone] () [address]29[address]FXBZZST, [place] [address]HA: 12/17/2017 Secondary NOT GIVENUNK [place] Insurance:SELF PAY [facility] Number: Effective Repository Date:2017-11-25 12/13/2017 BRENNEN Primary BRENNEN Cookie [id number] Insurance:ANTHEMPolic KELLEYDOB: Community [address] y Number: [id number], [place] [id number] Repository [address]Fbg: (330) Date:6700-85-28SX [phone] () [address]20[address]PLGEKBW, [place] [address]NB: 12/13/2017 Secondary NOT GIVENUNK [place] Insurance:SELF PAY [facility] Number: Effective Repository Date:2017-12-13 12/13/2017 BRENNEN Primary BRENNEN Cookie [id number] Insurance:ANTHEMPolic KELLEYDOB: Community [address] y Number: [id number] [id number] Repository [address]Jpe: (330) Date:9266-67-88FX [phone] () [address]QCEDOEZ, [place] [address]IN: 12/13/2017 Secondary NOT GIVENUNK [place] Insurance:SELF PAY [facility] Effective Repository Date:2017-12-13 11/25/2017 BRENNEN Primary BRENNEN Cookie [id number] Insurance:ANTHEMPolic KELLEYDOB: Community [address] y Number: [id number], [place] [id number] Repository [address]Rml: (330) Date:2712-73-83VP [phone] () 3775[address]IDKWIFT, [place] [address]PU: 11/25/2017 Secondary NOT GIVENUNK [place] Insurance:SELF PAY [facility]: Effective Repository Date:2017-11-12 11/22/2017 Clement R Primary Clement R Cookie [id number] Insurance:ANTHEMPolic KelleyDOB: Community [address]Apple y Number: [id number], [place] [id number] Repository [address]Zld: (330) Date:0604-59-50ES [phone] () 797335ZKFOHKF [place] [address]AC: 11/22/2017 Secondary NOT GIVENUNK [place] Insurance:SELF PAY Community [facility] Number: Effective Repository Date:2017-11-18 08/16/2017 CLEMENT R Primary CLEMENT KELLEYDOB: [place] [id number] Insurance:ANTHEMPolic [id number] Community [address] y Number: [place] [id number] Repository [address]Hzv: (330) Date:4789-07-09CD [phone] () 041782LHICGAX, [place] [address]AO: 07/15/2017 CLEMENT R Primary CLEMENT KELLEYDOB: [place] [id number] Insurance:ANTHEMPolic [id number] Community [address] y Number: [place], [place] [id number] Repository [address]Dqx: (330) Date:[phone] () [id number] [place] [address]AR: 07/09/2017 CLEMENT MENDES: Cookie [id number] Insurance:[facility] [id number] EDELAPPHAIM y Number: [place] [id number] Repository [address]Icy: (330) Date:[phone] (HP) 047241DZFFRWC [place] [address]IN:
--- NOTE | 2017-12-17 10:20 | EGD_PTH ---
PATIENT: BRENNEN ARRIAGA LOC: EN U#:[id number] AGE/SX: 32/F ROOM: RE12/17/[address]: Dr. Dakota Young MD : 1985 BED: DIS: 12/17/2017 SPEC #: [id number] RECD: 12/17/17 11:11 STATUS: TRANG GEORGETTE #: [id number] JERAMY: 12/17/17 10:[address]: Dakota Young DEPT: SURGICAL PATHOLOGY RECD BY: Osmin Whitfield ENTERED: 12/17/17 12:13 SP TYPE: EGD BIOPSY JESSICA DR: Dr. Myah Badillo DO Tissues: A - Duodenum, NOS B - Pylorus C - Esophageal mucous membrane D - Esophageal mucous membrane Procedures: Surgery Specimen Level IV HEADER OPERATION: EGD PRE-OP DIAGNOSIS: Nausea / vomiting TISSUE SUBMITTED: A ? Duodenal biopsy, B ? Prepyloric polyp, C ? Distal esophageal biopsy D ? Mid esophageal biopsy MICROSCOPIC DIAGNOSIS A. Duodenum, biopsy: No pathologic diagnosis. B. Prepyloric polyp, biopsy: Polypoid gastric mucosa with chronic gastritis, moderate. C. Distal esophagus, biopsy: Consistent with changes of reflux. D. Mid esophagus, biopsy: Fragments of benign squamous epithelium. AM:harmony 12/20/17 COMMENT B. The results of immunohistochemistry for Helicobacter pylori will be reported separately ([id number]). C. Glandular epithelium is not present. MICROSCOPIC DESCRIPTION Slides are reviewed. GROSS DESCRIPTION A - Received in fixative is one container labeled with the patient's name and designated duodenal biopsy. The specimen consists of one irregular fragment of light quinonez soft tissue that measures 0.3 x 0.2 x 0.1 cm. The specimen is totally submitted in one cassette. B - Received in fixative is one container labeled with the patient's name and designated prepyloric polyp. The specimen consists of two irregular fragments of light quinonez soft tissue that in aggregate measure 0.6 x 0.2 x 0.1 cm. The specimen is totally submitted in one cassette. C - Received in fixative is one container labeled with the patient's name and designated distal esophageal biopsy. The specimen consists of one irregular fragment of light quinonez soft tissue that measures 0.3 x 0.3 x 0.1 cm. The specimen is totally submitted in one cassette. D - Received in fixative is one container labeled with the patient's name and designated esophageal biopsy. The specimen consists of one irregular fragment of light quinonez soft tissue that measures 0.3 x 0.3 x 0.1 cm. The specimen is totally submitted in one cassette. / AM:harmony 12/17/17 TC:3 CPT: 00095 x4
--- NOTE | 2017-12-17 10:25 | PCM.OPRPT ---
Problem List (1) Epigastric pain Status: Acute Report of Operation Date of Procedure: 12/17/17 Pre-Operative Diagnosis: Epigastric pain Post-Operative Diagnosis: Small hiatal hernia. Minimal antral erythema. Small prepyloric polyp Surgery/Procedure Performed:: Esophago-gastroduodenoscopy with duodenal and prepyloric and distal esophageal and mid esophageal biopsies Description of Surgical Findings:: Timeout and informed consent was obtained. 32-year-old female was taken to the endoscopy suite. Her oropharynx anesthetized with Cetacaine. Throughout the procedure total of 100 mg Demerol and 4-1/2 mg of Versed were given as intravenous sedation. Under direct physician Lj flexible gastroscope was inserted and soft roll inlet. Proximal mid distal esophagus did not appear to be remarkable. EG junction at 40 cm. 3 small hiatal hernia noted. No evidence of overt reflux changes. The scope was advanced in the stomach with very mild erythema of the antrum noted. A small prepyloric polyp identified. Photographs of obtained. The scope was advanced through the pylorus and the first and second portions of the duodenum were inspected and this can appear to be completely normal. Duodenal biopsy was obtained of the second portion. The scope was withdrawn and cold forcep biopsy was also obtained of the prepyloric polyp. Hemostasis was intact. The scope was further withdrawn greater and lesser curvatures were inspected not remarkable. The scope was retroflexed the EG junction noted and a small hiatal hernia. The cardia was otherwise unremarkable. Excess fluid and air was aspirated free scope was withdrawn to the distal esophagus were distal esophageal biopsy was obtained. And then mid esophageal biopsy was obtained. The procedure was completed. Impression Small hiatal hernia. Minimal antral erythema. Prepyloric small polyp. No gross findings that would seem to correlate with the patient's concern of epigastric pain. The patient will be notified of pathology results as they become available. If these are not remarkable then I likely will not have a surgical etiology to her symptoms. Cc: Dr. Badillo Medications given at 1015. Procedure initiated at 1018. Procedure completed at 1022. Dakota Young M.D., F.A.C.S. Type of Anesthesia:: IV Sedation
== END 2017-12-17 11:50 | disposition home or self-care (01) ==
LOC: EN 08:28 → AC 08:29
PROVIDERS: Family Provider Internal Medicine; PCP Internal Medicine; Visit Provider Surgery
PROC: (CPT 43239; principal; 2017-12-17 09:40)
DX: K29.50 Unspecified chronic gastritis without bleeding (principal); K21.9 Gastro-esophageal reflux disease without esophagitis; K44.9 Diaphragmatic hernia without obstruction or gangrene; F41.9 Anxiety disorder, unspecified; R10.13 Epigastric pain; R10.11 Right upper quadrant pain; R63.6 Underweight; Z68.1 Body mass index [BMI] 19.9 or less, adult
CPT/HCPCS: 43239; 88305; 88342; J7120

== ENCOUNTER → 2018-01-12 11:15 | Outpatient (CLI) | payer BC, SELFPAY ==
[2018-01-12 12:31] LABS: CRP < 2.90 mg/L (0.0-3.0)
--- OUTSIDE RECORDS SUMMARY | 2018-01-12 13:54 | XMS RPT_ITS | Clinical Summary ---
:1985 Author Organization [facility], [facility] Address [address] [place] [address] Phone Care Team Providers Name Role Phone Marcos NAZARIO, Benson Vaughn Unavailable Conditions or Problems Problem Name Problem Onset Status Entry Provider Comment Standard Annotate Code Date Date Description Acute 66982947 Active Benson Vaughn Acute bronchitis (SNOMED CT) / Marcos NAZARIO bronchitis Medications Medication Instructions Start Stop Generic Name NDC Provider Date Date ZITHROMAX Take 2 pills on AZITHROMYCIN 55337098348 Benson Vaughn Z-XIOMARA 250 MG day 1 then 1 Marcos NAZARIO TABS pill days 2 through 5 MEDROL 4 MG Take as METHYLPREDNISOLONE 56274662785 Benson Vaughn TBPK directed Marcos NAZARIO BUSPIRONE HCL as directed / BUSPIRONE HCL [id number] Benson Vaughn 10 MG TABS Marcos NAZARIO Medications Administered No information available. Allergies, Adverse Reactions, Alerts Allergy Name Reaction Description Start Date Severity Status Provider CIPRO Critical Active Benson NAZARIO Results Date Name Value Unit Range Flag Description Office Visit: UC: Sinus MEDS REVIEW Done Documentation of current medications (procedure) ORALTOBACUSE Never Tobacco smoking status NHIS SMOK STATUS Never smoker Tobacco use [facility] Plan of Care Type Date Detail Appointment 10:00 AM Benson NAZARIO, [facility], [address], [place], [address], Procedures No information available. Vital Signs Date Name Value Unit Description BMI (Body Mass Index) 20.28 kg/m2 Body Mass Index [Ratio] Body Temperature 97.9 [degF] temperature E&M BP Diastolic 68 mm[Hg] blood pressure, diastolic - 8462-4 BP Systolic 102 mm[Hg] blood pressure, systolic - 8480-6 Heart Rate 76 /min pulse rate E&M - 8867-4 Height 64.5 [in_us] height E&M - 8302-2 Respiratory Rate 14 /min respiratory rate E&M - 9279-1 Weight Measured 120 [lb_av] weight E&M - 3141-9
--- OUTSIDE RECORDS SUMMARY | 2018-01-12 13:54 | XMS RPT_ITS | Clinical Summary ---
:1985 Author Organization [facility] Address [address] [place] [address] Phone Care Team Providers Name Role Phone Benson Boss Unavailable Conditions or Problems Problem Name Problem Onset Status Entry Provider Comment Standard Annotate Code Date Date Description Acute [id number] Active Benson Vaughn Acute bronchitis (SNOMED CT) / Marcos NAZARIO bronchitis Medications Medication Instructions Start Stop Generic Name NDC Provider Date Date ZITHROMAX Take 2 pills on AZITHROMYCIN [id number] Benson Vaughn Z-XIOMARA 250 MG day 1 then 1 Marcos NAZARIO TABS pill days 2 through 5 MEDROL 4 MG Take as METHYLPREDNISOLONE [id number] Benson Vaughn TBPK directed Marcos NAZARIO BUSPIRONE HCL as directed / BUSPIRONE HCL [id number] Benson Vaughn 10 MG TABS Marcos NAZARIO Medications Administered No information available. Allergies, Adverse Reactions, Alerts Allergy Name Reaction Description Start Date Severity Status Provider CIPRO Critical Active Benson NAZARIO Results Date Name Value Unit Range Flag Description Office Visit: UC: Sinus MEDS REVIEW Done Documentation of current medications (procedure) ORALTOBACUSE Never Tobacco smoking status NHIS SMOK STATUS Never smoker Tobacco use [facility] Plan of Care No information available. Procedures No information available. Vital Signs Date [...]
[2018-01-13 16:10] LABS: Endomysial Antibody IgA Positive (Negative)
[2018-01-14 11:12] LABS: Immunoglobulin A 240 mg/dL (87-352); t-Transglutaminase IgA 3 U/mL (0-3)
== END ==
PROVIDERS: Family Provider Internal Medicine; PCP Internal Medicine; Visit Provider Internal Medicine Gastroenterology
DX: R10.9 Unspecified abdominal pain (principal); R19.7 Diarrhea, unspecified
CPT/HCPCS: 36415; 82784; 83516; 86140; 86255

== ENCOUNTER → 2018-01-27 08:16 | Outpatient (CLI) | payer BC, SELFPAY ==
--- NOTE | 2018-01-27 08:19 | RAD_ITS ---
CLINICAL HISTORY: Female, 32 years old. STUDY: SMALL BOWEL FOLLOW-THROUGH STUDY REASON FOR EXAM: Female, 32 years old. diarrhea, abd pain x 1 year h/o celiac disease RADIATION DOSAGE (If Supplied By Facility): CTDIvol = ( ) mGy, DLP = ( ) mGycm FLUOROSCOPY TIME (if supplied): (0:19) minutes/seconds TECHNIQUE: Multiple views of the abdomen were performed after barium ingestion fluoroscopic examination of the terminal ileal loop is also performed with multiple spot views were obtained.9 overhead films were obtained. FINDINGS: Ground Products Director view: The bowel gas pattern is unremarkable there is no evidence of free air in the abdomen. Small bowel follow-through: Normal progression of barium is seen throughout different parts of the small bowel the cecum is reached at approximately 2 hours after barium ingestion. The duodenum, jejunum, and ileum mucosal pattern is unremarkable. Fluoroscopic examination of the terminal loop shows no abnormality. RAD/Small Bowel Series Only IMPRESSION: Unremarkable study. Electronically Signed: Ivis Mcintyre MD at 11:37 EDT Tel , Service support ,
--- OUTSIDE RECORDS SUMMARY | 2018-01-27 08:35 | XMS RPT_ITS ---
:1985 Author Organization [place] Support Name Relationship Address Phone [employer] Unavailable [facility] + [place] [address] GESSEL, NIHARIKA Unavailable Unavailable + [place] [address] CLEMENT ARRIAGA Unavailable [address] + [place] [address] [employer] Unavailable [facility] + [place] [address] GESSEL, NIHARIKA Unavailable Unavailable + [place] [address] [employer] Unavailable [facility] + [place] [address] GESSEL, NIHARIKA Unavailable Unavailable + [place] [address] [employer] Unavailable [facility] + [place] [address] GESSEL, NIHARIKA Unavailable 1 + [place] [address] [employer] Unavailable [facility] + [place] [address] GESSEL, NIHARIKA Unavailable 1 + [place] [address] [employer] Unavailable [facility] + [place] [address] GESSEL, NIHARIKA Unavailable 1 + [place] [address] [employer] Unavailable [facility] + [place] [address] GESSEL, NIHARIKA Unavailable 1 + [place] [address] [employer] Unavailable [facility] + [place] [address] CLEMENT ARRIAGA Unavailable [address] + [place] [address] [employer] Unavailable [facility] + [place] [address] CLEMENT ARRIAGA Unavailable [address] + [place] [address] [employer] Unavailable [facility] + [place] [address] CLEMENT ARRIAGA Unavailable [address] + [place] [address] [employer] Unavailable [facility] + [place] [address] CLEMENT ARRIAGA Unavailable [address] + [place] [address] Care Team Providers Name Role Phone Myah Badillo Attending Unavailable Aby, Myah Primary Care Unavailable Aby, Myah Attending Unavailable Aby, Myah Primary Care Unavailable Aby, Myah Attending Unavailable Aby, Myah Primary Care Unavailable Aby, Myah Attending Unavailable Aby, Myah Primary Care Unavailable Aby, Myah Referring Unavailable Aby, Myah Primary Care Unavailable Cebul, Dakota Attending Unavailable Cebul, Dakota Attending Unavailable Aby, Myah Primary Care Unavailable Cemaximel, Dakota Referring Unavailable Aby, Myah Referring Unavailable Aby, Myah Primary Care Unavailable Prem Melendez Attending Unavailable Aby, Myah Primary Care Unavailable Prem Melendez Referring Unavailable Prem Melendez Attending Unavailable Aby, Myah Primary Care Unavailable Cebul, Dakota Consulting Unavailable Cebul, Dakota Attending Unavailable Cebul, Dakota Referring Unavailable Aby, Myah Primary Care Unavailable Jones Young Attending Unavailable Aby, Myah Primary Care Unavailable Jones Young Attending Unavailable Jones Young Referring Unavailable PROBLEMS PROBLEMS DATE TYPE CONDITION / CODE ATTENDING STATUS SOURCE 12/14/2017 Unknown J02.9 - Acute Prem Melendez Active [place] pharyngitis, Community unspecified / Hospital J02.9(ICD-10) Repository 12/13/2017 Unknown J06.9 - Acute Prem Melendez Active [facility] upper respiratory Community infection, Hospital unspecified / Repository J06.9(ICD-10) 08/25/2017 Unknown GENERALIZED Aby, Active [facility] ABDOMINAL PAIN / [facility] R10.84(ICD-10) Hospital Repository 07/22/2017 Unknown EPIGASTRIC PAIN / Aby, Active [place] R10.13(ICD-10) [facility] Repository PROCEDURES PROCEDURES No Procedure Records FoundRESULTS RESULTS CRP Collected: 01/12/2018 Status: F Source: [place] 11:22 AM [facility] REPOSITORY TYPE CODE TESTS RESULT OUT OF RANGE REFERENCE UNITS LAB L501.6710 Normal 0.0-3.0 mg/L < C-REACTIVE 2.90 PROT Result Comment: C-Reactive Protein (CRP) provides useful information for thediagnosis, therapy and monitoring of inflammatory processesand associated diseases. For the evaluation of Relative Riskfor Cardiovascular Disease, a High Sensitivity CRP (HSCRP)should be ordered. Performed By: #### L501.6710 ####[facility] [address] [place], [place], [address] CELIAC DISEASE Collected: 01/12/2018 Status: F Source: APEX PROFILE 11:22 AM [facility] REPOSITORY TYPE CODE TESTS RESULT OUT OF RANGE REFERENCE UNITS LAB L3200.1400 Normal 87-352 mg/dL IMMUNO 240 A Result Comment: Performed at: - [facility] [address] [id number] Director: Jones Moses PhD, Phone: [phone] LAB L3233.5189 Normal 0-3 U/mL tTG IGA 3 Result Comment: Negative 0 - 3 Weak Positive 4 - 10 Positive >10 Tissue Transglutaminase (tTG) has been identified as the endomysial antigen. Studies have demonstr- ated that endomysial IgA antibodies have over 99% specificity for gluten sensitive enteropathy. LAB L3410.3294 High Negative ENDOMYSIAL Positive IGA Performed By: #### L3410.2400 ####[facility] (refer to report for specific site) refer to report for address and phone number OPERATIVE REPORT Observed: 12/17/2017 Status: F Source: APEX 10:30 AM [facility] REPOSITORY [facility] [address] [place], [place] [address]Grelanawj Totzpe23/09/18 1025MR#: [id number] Acct: [id number]: BRENNEN ARRIAGA Rep #: [id number] : 1985 32 From: Dakota Young MDPCP: Myah Badillo DO Status: REG [facility] YLocation: [id number] List(1) Epigastric painStatus: AcuteReport of OperationDate of Procedure: 12/17/17Pre-Operative Diagnosis: Epigastric painPost-Operative Diagnosis: Small hiatal hernia. Minimal antral erythema. Small prepyloricpolypSurgery/Procedure Performed:: Esophago-gastroduodenoscopy with duodenal and prepyloric anddistal esophageal and mid esophageal biopsiesDescription of Surgical Findings::Timeout and informed consent was obtained. 32-year-old female was taken to the endoscopysuite. Her oropharynx anesthetized with Cetacaine. Throughout the procedure total of 100 mgDemerol and 4-1/2 mg of Versed were given as intravenous sedation. Under direct physician Jeffflexible gastroscope was inserted and soft roll inlet. Proximal mid distal esophagus did notappear to be remarkable. EG junction at 40 cm. 3 small hiatal hernia noted. No evidence ofovert reflux changes. The scope was advanced in the stomach with very mild erythema of theantrum noted. A small prepyloric polyp identified. Photographs of obtained. The scope wasadvanced through the pylorus and the first and second portions of the duodenum were inspectedand this can appear to be completely normal. Duodenal biopsy was obtained of the secondportion. The scope was withdrawn and cold forcep biopsy was also obtained of the prepyloricpolyp. Hemostasis was intact. The scope was further withdrawn greater and lesser curvatureswere inspected not remarkable. The scope was retroflexed the EG junction noted and a smallhiatal hernia. The cardia was otherwise unremarkable. Excess fluid and air was aspirated freescope was withdrawn to the distal esophagus were distal esophageal biopsy was obtained. Andthen mid esophageal biopsy was obtained. The procedure was completed.ImpressionSmall hiatal hernia. Minimal antral erythema. Prepyloric small polyp. No gross findings thatwould seem to correlate with the patient's concern of epigastric pain.The patient will be notified of pathology results as they become available. If these are notremarkable then I likely will not have a surgical etiology to her symptoms.Cc: Dr. BadilloMedications given at 1015. Procedure initiated at 1018. Procedure completed at 1022.Dakota Young M.D. , F.A.C.S.Type of Anesthesia:: IV Kmnzgrvf24/09/18 1030 <Electronically signed by Dakota Young MD>Date Dakota Young MDCC: Myah Badillo DO; Dakota Young MD Signed EGD ([facility]) Observed: 12/17/2017 Status: F Source: [place] 10:20 AM [facility] REPOSITORY Patient: BRENNEN ARRIAGA : 1985 (32/) Acct Num: [id number] Phys: Dakota Young MD Unit Num: [id number] Loc: EN Specimen: [id number] Received: 12/17/17 - 1111 Spec Type: EGD BIOPSY TISSUES TISSUES: A. Duodenum, NOS B. Pylorus C. Esophageal mucous membrane D. Esophageal mucous membrane COMMENT B. The results of immunohistochemistry for Helicobacter pylori will be reportedseparately ([id number]). C. Glandular epithelium is not present. GROSS DESCRIPTION A - Received in fixative is one container labeled with the patient's name and designated duodenal biopsy. The specimen consists of one irregular fragment of light quinonez soft tissue that measures 0.3 x 0.2 x 0.1 cm. The specimen is totally submitted in one cassette. B - Received in fixative is one container labeled with the patient's name and designated prepyloric polyp. The specimen consists of two irregular fragmentsof light quinonez soft tissue that in aggregate measure 0.6 x 0.2 x 0.1 cm. The specimen is totally submitted in one cassette. C - Received in fixative is one container labeled with the patient' s name and designated distal esophageal biopsy. The specimen consists of one irregular fragment of light quinonez soft tissue that measures 0.3 x 0.3 x 0.1 cm. The specimen is totally submitted in one cassette. D - Received in fixative is one container labeled with the patient's name and designated esophageal biopsy. The specimen consists of one irregular fragmentof light quinonez soft tissue that measures 0.3 x 0.3 x 0.1 cm. The specimen is totally submitted in one cassette. / AM: 12/17/17 TC:3 CPT: 57312 x4 HEADER OPERATION: EGD PRE-OP DIAGNOSIS: Nausea / vomiting TISSUE SUBMITTED: A Duodenal biopsy, B Prepyloric polyp, C Distal esophageal biopsy D Mid esophageal biopsy MICROSCOPIC DESCRIPTION Slides are reviewed. MICROSCOPIC DIAGNOSIS A. Duodenum, biopsy: No pathologic diagnosis. B. Prepyloric polyp, biopsy: Polypoid gastric mucosa with chronic gastritis, moderate. C. Distal esophagus, biopsy: Consistent with changes of reflux. D. Mid esophagus, biopsy: Fragments of benign squamous epithelium. AM: 12/20/17 Signed Cesario Bindu 12/20/17 < signature on file> Performed By: #### PEGD ####[facility] [address] [place], [place], [address] IMMUNOHISTOCHEMISTRY Observed: 12/17/2017 Status: F Source: APEX 12:00 [facility] REPOSITORY Patient: BRENNEN ARRIAGA : 1985 (32/F) Acct Num: [id number] Phys: Hector HENRY,Dakota Unit Num: [id number] Loc: EN Specimen: [id number] Received: 12/20/17 - 1139 Spec Type: IMMUNO TISSUES TISSUES: B. Pylorus SPECIMEN INFORMATION: Tissue Source: B Prepyloric polyp Clinical Info: Nausea/vomiting Specimen Number: [id number] CPT code: 56040 METHODOLOGY: Deparaffinized sections of prefer/formalin-fixed tissue or PAP/DQ stained slides are incubated with monoclonal/polyclonal antibodies/oligonucleotide probes. Localization is made via biotin free immunoperoxidase method. Appropriate controls are performed and reacted as expected. Results on target cell population are indicated in the following table: RESULTS: ANTIBODY / CLONE RESULT Block B H Pylori (polyclonal) negative These tests were developed and their performance characteristics determined by [facility]. They may not have been cleared or approved by the U.S. Food and Drug Administration. The FDA has determined that such clearance or approval is not necessary. INTERPRETATION: B. Prepyloric polyp, biopsy: Negative for Helicobacter pylori organisms. AM:harmony 12/20/17 PHYSICIAN AND INSTITUTION [facility] [address] [place] [address] Signed Cesario Bindu 12/20/17 < signature on file> Performed By: #### PIMM ####[facility] [address] [place], [place], [address] Observed: 12/13/2017 Status: F Source: APEX CULTURE, R/O STREP A 12:30 PM [facility] REPOSITORY SHANTAL CultureNo Streptococcus group A isolated. * This cultures intended use is to screen for Beta Streptococcus A only. All other pathogens and potential pathogens will not be screened for or reported. If a complete workup of all potential pathogens is indicated an order for a routine throat culture is required. Performed By: #### M100.010 ####[facility] [address] [place], [place], [address] URGENT CARE VISIT Observed: 12/13/2017 Status: F Source: APEX REPORT 12:26 PM [facility] REPOSITORY Now [address] [phone] VISITDate of Service: 12/13/17MR#: [id number] Acct: [id number]: BRENNEN ARRIAGA Rep #: [id number]: 1985 Provider: Prem Recinos/Sex: 32/F Location: [facility].NOWStatus: SignedIntakeVital Signs12/13/17 Height 5 ft 3.5 inIntakeVisit [...] Appearance: average body habitusOrientation: alert, awake, oriented k3MCEIOUkdl: normal to inspectionEars: hearing grossly normal bilaterally, [...] other concerns develop.This note was generated with Abzenaation software. It may contain incorrect words,spelling, and punctuation that were not noted in checking the note before signing.OrdersOrders:MedicationsDiscontinued:naproxen Discontinued Reason: Pt250 - 500 mg PO Q8H PRN PRN LU PA Purnima Orlando longer taking IN (-01/15)CodingLevel of Care CodeOff vis,new,level 3DiagnosesURI (upper respiratory infection) J06.9Pharyngitis J02.9012/13/17 1226 <Electronically signed by Prem NAZARIO>Date Prem Melendez PACosigner Signature: Date (if applicable)CC: SURGERY VISIT REPORT Observed: 11/25/2017 Status: F Source: APEX 7:01 PM [facility] [address] [place] [address] [phone] VISITDate of Service: 11/25/17MR#: [id number] Acct: [id number]: BRENNEN ARRIAGA Rep #: [id number]: 1985 Provider: Dakota Young MDAge/Sex: 32/F Location: [facility].WSAStatus: SignedIntakeVital Signs11/25/17 Height 5 ft 4 in11/25/17 [...] ultrasound. This was normal. On November 22, 2017mark had a nuclear medicine hepatobiliary scan. The ejection fraction was 48% felt to benormal. There was some duodenal gastric reflux noted.The patient states that she has lost approximately 15 pounds. She currently is a very qhqewfw942 pounds.She denies any particular additional stressors in [...] cooperative, healthy appearingNutritional Appearance: underweightOrientation: alert, oriented [id number]: normal to inspectionMouth: oral mucosae normalEyesGeneral: appearance [...] (Mildly anxious affect)Assessment AND PlanProblems1. Epigastric pain R10.72Dnqt07-uldc-gbs female who is noting epigastric with some [...] F.A.C.S.OrdersOrders:CodingLevel of Care CodeComprehensive,moderateDiagnosesEpigastric pain R10.13Abdominal location: utyjfxdvxd16/18/18 1901 <Electronically signed by Dakota Young MD> Date Dakota Young MDCosigner Signature: Date (if applicable)CC: Myah Badillo DO HEPATOBILLIARY IMAGING Observed: 11/22/2017 Status: F Source: APEX 12:29 PM [facility] REPOSITORY [facility] [address] [place], [place] [address]Pytneceiopelda ImagingMR#: [id number] Acct: [id number]: BRENNEN ARRIAGA Rep #: [id number]: 1985 F 32 From: Osmin Brizuela DOPCP: Myah Badillo DO Status: REG CLIStudy: Hepatobilliary Imaging Date of Exam: 11/22/17Exam# [id number] Ordering Dr: Myah Badillo DOCLINICAL:32-year-old female with [...] (0.02 ug/kg ) was administered intravenously over o65-txkivz period. The post CCK gallbladder ejection fraction [...] at 12:06 ESTTel , Service support , RH: Myah Badillo DO Lead Recoverer: Signed HEPATOBILLIARY IMAGING Observed: 08/16/2017 Status: F Source: APEX 9:42 AM [facility] REPOSITORY [facility] [address] [place] [address]Afwmfqvvubofyh ImagingMR#: [id number] Acct: [id number]: BRENNEN ARRIAGA Rep #: [id number]: 1985 F 31 From: Osmin Brizuela DOPCP: Myah Badillo DO Status: REG CLIStudy: Hepatobilliary Imaging Date of Exam: 08/16/17Exam# [id number] Ordering Dr: Myah Badillo DOCLINICAL:31-year-old female with [...] at 23:24 EDTTel , Service support , PM: Myah Badillo DO Lead Recoverer:Signed GALLBLADDER Observed: 07/15/2017 Status: F Source: APEX 9:22 AM [facility] REPOSITORY [facility] [address] [place] [address]NugjksstrbiVS#: [id number] Acct: [id number]: BRENNEN ARRIAGA Rep #: [id number]: 1985 F 31 From: Vijay Cuevas MDPCP: Myah Badillo DO Status: REG CLIStudy: Gallbladder Date of Exam: Exam# [id number] Ordering Dr: Myah Badillo DOSTUDY: ABDOMINAL ULTRASOUND [...] of the right kidney. The right kidney .2 cm x 5.2 cm x 4.0 cm. Normal renal cortex. The right cortex measures1.0 cm. There is no demonstrated renal mass or cyst. There is no righthydronephrosis. ORDER #: [id number] US/GallbladderIMPRESSION:Normal right upper quadrant ultrasound examination.Electronically Signed:Vijay Cuevas MD at 12:36 EDTTel [phone], Service support , QJ: Myah Badillo DO Lead Recoverer:Signed COMPREHENSIVE METABOLIC Collected: 07/09/2017 Status: F Source: [place] RODARTE 4:03 PM [facility] REPOSITORY Order Comment: Comments: [id number] HELICOBACTER PYLORI AB IGA IGG IGM RF [...] 7 Performed By: #### L500.4050, L501.2400, L501.2450 ####[facility] [address] [facility] [place], [place], [id number] AMYLASE Collected: 07/09/2017 Status: F Source: [place] 4:03 [facility] Order Comment: Comments: [id number] HELICOBACTER PYLORI AB IGA IGG IGM RF TYPE CODE TESTS RESULT OUT OF RANGE REFERENCE UNITS LAB L501.2400 Normal 25-115 U/L DAVID 106 Performed By: #### L500.4050, L501.2400, L501.2450 ####[facility] [address] [facility]. [place], [place], [address] LIPASE Collected: 07/09/2017 Status: F Source: A[place]X 4:03 PM [facility] REPOSITORY Order Comment: Comments: [id number] HELICOBACTER PYLORI AB IGA IGG IGM RF TYPE CODE TESTS RESULT OUT OF RANGE REFERENCE UNITS LAB L501.2450 Normal 73-393 U/L LIPASE 374 Performed By: #### L500.4050, L501.2400, L501.2450 ####[facility] [address] [place], [address] CBC W/DIFF, AUTOMATED Collected: 07/09/2017 Status: F Source: APEX 4:03 PM [facility] REPOSITORY TYPE CODE TESTS RESULT OUT OF [...] Lymph 2.72 Performed By: #### L100.0100, L101.9900 ####[facility] [address] [place], [address] ERYTHROCYTE SED RATE Collected: 07/09/2017 Status: F Source: [place] 4:03 PM [facility] REPOSITORY TYPE CODE TESTS RESULT OUT OF RANGE REFERENCE UNITS LAB L102.0000 Normal 0-20 mm/hr SED 1 RATE Performed By: #### L100.0100, L101.9900 ####[facility] [address] [place], [address] MISCELLANEOUS LAB Collected: 07/09/2017 Status: F Source: [place] PROCEDURE 4:03 PM [facility] REPOSITORY Order Comment: Comments: [id number] HELICOBACTER PYLORI AB IGA IGG IGM RFTest(s) Ordered: [id number] HELICOBACTER PYLORI AB IGA IGG IGM RF TYPE CODE TESTS RESULT OUT OF RANGE REFERENCE UNITS LAB L801.1541 Normal [facility] TEST Result Comment: TEST RESULT UNITS [...] was developed and its performance characteristicsdetermined by [facility]. It has not been cleared or approvedby the Food and Drug Administration. __ TESTING PERFORMED AT [facility]. ORIGINAL REPORT ON FILE IN LAB CONTAINS ADDITIONAL TEST SITE INFORMATION. Performed By: #### L801.1541 ####[facility] [address], [address] ALLERGIES ALLERGIES DATE TYPE / NAME / CODE REACTION SEVERITY SOURCE CODE 12/13/2017 Drug ciprofloxacin Anaphylaxis Unknown [facility] Allergy/41 HCl/[id number](RXNO [facility] 9177694[facility]) Repository 12/13/2017 Drug ciprofloxacin/F0060 Anaphylaxis Unknown [facility] Allergy/41 35349(RXNORM) [facility] [id number]([facility]) Repository 08/29/2015 Drug ciprofloxacin Anaphylaxis [place] Allergy/41 [id number] [id number] [place] [address]) Repository 08/29/2015 Drug ciprofloxacin/F0060 Anaphylaxis [facility] Allergy/41 29261(RXNORM) [facility] 6266151([facility]) Repository ENCOUNTERS ENCOUNTERS ADMIT/DISCHARGE ACCOUNT ADMITTING ENCOUNTER LOCATION SOURCE NUMBER CLASS 01/27/2018 [id number] Ambulatory [facility] 3 [facility] ing:RAD Repository 01/12/2018 [id number] Ambulatory [facility] [place] 5 [facility] ing:MTLAB Repository 12/17/2017/ [id number] Ambulatory [place] 8 6 [facility] ing:EN Repository 12/17/2017 [id number] Ambulatory BMSBuilding:B [facility] 2 MS.CF.[facility] Repository 12/13/2017 [id number] Ambulatory [facility] 1 [facility] ing:LABSPEC Repository 12/13/2017/ [id number] Ambulatory BMSBuilding:B [place] 8 [address] Repository 11/25/2017/ [id number] Ambulatory BMSBuilding:B [place] 8 1 MS.[facility] Repository 11/22/2017 [id number] Ambulatory [facility] 6 [facility] ing:NM Repository 08/16/2017 [id number] Ambulatory [place] 8 [facility] ing:NM Repository 07/15/2017 [id number] Ambulatory [place] 7 [facility] ing:USHP Repository 07/09/2017 [id number] Ambulatory [facility] [place] 3 [facility] ing:MTLAB Repository PAYERS PAYERS ENCOUNTER GUARANTOR PAYER SUBSCRIBER SOURCE 01/27/2018 BRENNEN N Primary CLEMENT KELLEYDOB: [place] [id number] Insurance:ANTHEMPolic [id number] Community [address] Number: [place], [place] [id number] Repository [address]Gbq: (330) Date:5088-80-11KP [phone] () [address], [place] [address]GV: 01/27/2018 Secondary NOT GIVENUNK [facility] Insurance:SELF PAY [facility] Number: Effective Repository Date:2018-01-12 01/12/2018 BRENNEN N Primary CLEMENT LUISLEYUNK [facility] [id number] [facility] [address] y Number: [place], [place] [id number] Repository [address]Mny: (330) Date:3072-38-91KF [phone] () [address], [place] [address]OR: 01/12/2018 Secondary NOT GIVENUNK [place] Insurance:SELF PAY [facility] Number: Effective Repository Date:2018-01-12 12/17/2017 BRENNEN Primary CLEMENT LUISLEYUNK [facility] [id number] [facility] [address] y Number: [place], [place] [id number] Repository [address]Wkj: (330) Date:2653-41-68LR [phone] () [address]X[place]GLMX, [place] [address]WA: 12/17/2017 Secondary NOT GIVENUNK [facility] Insurance:SELF PAY [facility] Number: Effective Repository Date:2017-11-25 12/17/2017 BRENNEN Primary BRENNEN [facility] [id number] Insurance:ANTHEMPolic KELLEYDOB: Community [address] y Number: [id number], [place] [id number] Repository [address]Ugx: (330) Date:1016-68-47LK [phone] () [place] GUILLEN [address]YQ: 12/17/2017 Secondary NOT GIVENUNK [facility] Insurance:SELF PAY [facility] Number: Effective Repository Date:2017-12-17 12/13/2017 BRENNEN Primary BRENNEN [facility] [id number] Insurance:ANTHEMPolic KELLEYDOB: Community [address] y Number: [id number], [place] [id number] Repository [address]Gsq: (330) Date:2946-26-53BW [phone] () [place] [address]KQ: 12/13/2017 Secondary NOT GIVENUNK [facility] Insurance:SELF PAY [facility] Number: Effective Repository Date:2017-12-13 12/13/2017 [facility] Primary BRENNEN [place] [id number] Insurance:ANTHEMPolic KELLEYDOB: Community [address] y Number: [id number], [place] [id number] Repository [address]Fup: (330) Date:8397-50-07CF [phone] () [place] GUI[place] [address]BG: 12/13/2017 Secondary NOT GIVENUNK [facility] Insurance:SELF PAY [facility] Number: Effective Repository Date:2017-12-13 11/25/2017 BRENNEN Primary BRENNEN [facility] [id number] Insurance:ANTHEMPolic KELLEYDOB: Community [address] y Number: [id number], [place] [id number] Repository [address]Fqk: (330) Date:8377-48-00PV [phone] () [place] GUI[place]EN [address]TJ: 11/25/2017 Secondary NOT GIVENUNK [facility] Insurance:SELF PAY [facility] Hospital Number: Effective Repository Date:2017-11-12 11/22/2017 Clement R Primary Clement R Cookie [id number] Insurance:ANTHEMPolic KelleyDOB: [place] [address] [place] [address] Number: [id number], [place] [id number] Repository [address]Nhq: ([phone]) Date:[phone] (HP) [address] [place] [address]BS: 11/22/2017 Secondary NOT GIVENUNK Cookie Insurance:SELF PAY [facility]: Effective Repository Date:2017-11-18 08/16/2017 CLEMENT R Primary CLEMENT SMITHLEYDOB: Cookie [id number] Insurance:ANTHEMPolic [id number] Community [address] y Number: [place], [place] [id number] Repository [address]Hjy: ([phone]) Date:[id number] [phone] (HP) [address] [place] [address] 07846HH: 07/15/2017 CLEMENT R Primary CLEMENT SMITHLEYDOB: [place] [id number] Insurance:ANTHEMPolic [id number] Community [address] y Number: [place], [place] [id number] Repository [address]Xyt: ([phone]) Date:[phone] (HP) [address] [place] [address] [place] [address]OF: 07/09/2017 CLEMENT R Primary CLEMENT SMITHLEYDOB: Cookie [id number] Insurance:ANTHEMPolic [id number] Community [address] y Number: [place], [place] [id number] Repository [address]Fie: ([phone]) Date:[phone] (HP) [place] [address]SN:
== END ==
PROVIDERS: Family Provider Internal Medicine; PCP Internal Medicine; Visit Provider Internal Medicine Gastroenterology
DX: R19.7 Diarrhea, unspecified (principal); R10.9 Unspecified abdominal pain
CPT/HCPCS: 74250

== ENCOUNTER 2018-03-14 09:53 | Outpatient (RCR) | payer BC, SELFPAY | END 2018-03-14 23:59 | LOC: NS 09:53 | PROVIDERS: Family Provider Internal Medicine; PCP Internal Medicine; Visit Provider Internal Medicine | DX: K90.0 Celiac disease (principal); Z71.3 Dietary counseling and surveillance | CPT/HCPCS: 97802 ==

== ENCOUNTER → 2019-02-23 14:12 | Outpatient (CLI) | payer BC, SELFPAY ==
[2019-02-23 09:33] VITALS: BMI 18.8
== END ==
PROVIDERS: Family Provider Internal Medicine; PCP Internal Medicine; Referring Provider Physician Assistant; Visit Provider Physician Assistant
DX: J02.9 Acute pharyngitis, unspecified (principal)
CPT/HCPCS: 87081

== ENCOUNTER 2019-05-13 16:48 | Emergency (ER) | payer BC, SELFPAY ==
[2019-05-13 16:50] VITALS: BP 115/74; PULSE 100; RESP 15; TEMP 36.7; O2SAT 98; BMI 18.8
--- OUTSIDE RECORDS SUMMARY | 2019-05-13 16:52 | XMS RPT_ITS | CCD ---
:1985 External Reference #:[id number] Author Organization [facility] Care Team Providers Name Role Phone Johana Boss Unavailable Lintner Unavailable Unavailable Anuel Unavailable Unavailable Anuel Unavailable Unavailable Delmar, D Unavailable Unavailable Anuel Unavailable Unavailable Delmar, D Unavailable Unavailable Anuel Unavailable Unavailable Delmar, D Unavailable Unavailable Anuel Unavailable Unavailable Lintner Unavailable Unavailable Anuel Unavailable Unavailable Anuel Unavailable Unavailable LINTNER Attending Unavailable ANUEL Primary Care Unavailable Aunel Unavailable Rey Nieves Unavailable Jajuanjo Unavailable Messenger Unavailable Unavailable Gravius Unavailable Unavailable [id number] Unavailable Allergies Reported Allergen Reaction(s) Severity Date of Onset Location ciprofloxacin Critical, 09-28-2017 - [facility] Now [facility] Critical (74886) Ciprofloxacin Comprehensive Translations: [ Cipro Book Jogger al Medicine *Fluoroquinolones] (16132) Comment: Jittery, chest tightness and in throat, felt weird all over Medications Medication Name Sig Date Prescriber Location Acetaminophen / TYLENOL CHEST 11-07-2013 Kiersten Barros nsive guaiFENesin CONGESTION, - Internal Medici ne 325-200MG (Oral 10-24-2014 (38319) Tablet) 1 Tablet Tablet q8hrs prn for 0 days Quantity: 30 {Tablet} Refills: 0 Ordered: 24-Oct-2014 Kiersten Mccormick LPN Start : 07-Nov-2013 End : 24-Oct-2014 Inactive Acetaminophen / VICODIN, 5-500MG DAVID Jacobo hensive HYDROcodone (Oral Tablet) 1/2 Internal M edicine prn for 0 days (98785) Refills: 0 Ordered: 24-Jan-2010 DAVID Sidhu Inactive Albuterol ProAir HFA 108 01-11-2017 Arielle Rojas Comprehens charlie (90 Base) MCG/ACT - Internal M edicine Inhalation 07-09-2017 (12979) Aerosol Solution 2 (two) Puff Puff tid to qid for 0 days Quantity: 1 {Inhaler} Refills: 0 Ordered: 09-Jul-2017 Arielle Rojas Start : 11-Jan-2017 End : 09-Jul-2017 Inactive PROVENTIL HFA, 108 (90 03-14-2010 - Kiersten Mccormick Comprehen sive Internal Base)MCG/ACT (Inhalation 12-04-2010 Medicin e (52173) Aerosol Solution) 2 (two) Aerosol Soln qid prn for 0 days Quantity: 1 {Aerosol_Soln} Refills: 0 Ordered: 04-Dec-2010 Kiersten Mccormick LPN Start : 14-Mar-2010 End : 04-Dec-2010 Inactive Amoxicillin Prevpac 07-16-2017 - Kiersten Mccormick Comprehensiv e Miscellaneous 1 08-20-2017 Internal Med icine (one) Misc uad for 0 (25813) days Quantity: 1 {Packet} Refills: 0 Ordered: 20-Aug-2017 Kiersten Mccormick LPN Start : 16-Jul-2017 End : 20-Aug-2017 Inactive Prevpac Miscellaneous 1 07-16-2017 - Kiersten De Paze nsive Internal (one) Misc uad for 0 08-20-2017 Medicine (4 4691) days Quantity: 1 {Packet} Refills: 0 Ordered: 20-Aug-2017 Kiersten Mccormick LPN Start : 16-Jul-2017 End : 20-Aug-2017 Inactive Amoxicillin / Augmentin 875-125 10-24-2014 - Kiersten Mccormick Compre hensive Clavulanate MG Oral Tablet 1 12-09-2016 Internal Me dicine Tablet bid for 0 (47703) days Quantity: 20 {Tablet} Refills: 0 Ordered: 09-Dec-2016 Kiersten Mccormick LPN Start : 24-Oct-2014 End : 09-Dec-2016 Inactive azithromycin ZITHROMAX Z-XIOMARA 09-28-2017 - Benson Rodríguez [facility] Now Cli bari 250 MG TABS Take 2 10-03-2017 PA (52565) pills on day 1 then 1 pill days 2 through 5 AZITHROMYCIN [id number] Benson NAZARIO ZITHROMAX Z-XIOMARA 250 MG 09-28-2017 - 10-03-2017 Benson NAZARIO [facility] TABS Take 2 pills on day (48434) 1 then 1 pill days 2 through 5 AZITHROMYCIN [id number] Benson NAZARIO Zithromax Z-Xiomara 250 MG 01-11-2017 - 01-19-2017 Kiersten Mccormick [facility] Oral Tablet 1 (one) (14866) Tablet TAD for 0 days Quantity: 1 {Package} Refills: 0 Ordered: 19-Jan-2017 Kiersten Mccormick LPN Start : 11-Jan-2017 End : 19-Jan-2017 Inactive ZITHROMAX, 250MG (Oral 02-14-2010 - 12-04-2010 Kiersten Mccormick [facility] Tablet) 2 today Tablet (84978) then 1 qd for 0 days Quantity: 11 {Tablet} Refills: 0 Ordered: 04-Dec-2010 Kiersten Mccormick LPN Start : 14-Mar-2010 End : 04-Dec-2010 Inactive Comment: 2 tablets on day 1 then 1 ta b daily for 4 days then stop for 5 days then repeat Budesonide RHINOCORT AQUA, 12-29-2010 - Kiersten Mccormick Comprehen sive 32MCG/ACT (Nasal 01-13-2011 Internal Me dicine Suspension) 2 (two) (23401) Puff(s) once daily for 0 days Quantity: 1 {Suspension} Refills: 0 Ordered: 13-Jan-2011 Kiersten Mccormick LPN Start : 29-Dec-2010 End : 13-Jan-2011 Inactive busPIRone BusPIRone HCl 15 MG 10-11-2018 - Kiersten Mccormick [facility] Oral Tablet 1 Tablet 10-11-2018 Myah Agee (446 91) bid for 0 days Quantity: 60 {Tablet} Refills: 3 Ordered: 11-Oct-2018 Myah Agee DO, DO, Kathleen Start : 11-Oct-2018 End : 11-Oct-2018 Inactive BUSPIRONE HCL 10 MG TABS as directed 09-28-2017 [facility] (17063) BUSPIRONE HCL [id number] Benson NAZARIO Ciprofloxacin CIPRO, 500MG (Oral 11-30-2011 - Ernestina Barros nsive Tablet) 1 Tablet 12-01-2011 Stephan Internal Me dicine bid for 0 days (73989) Quantity: 20 {Tablet} Refills: 0 Ordered: 01-Dec-2011 Ernestina Rothman Start : 30-Nov-2011 End : 01-Dec-2011 Inactive CIPROFLOXACIN HCL, 500MG 03-09-2011 - Ernestina Rothman Compre hensive Internal (Oral Tablet) 1 Tablet 07-29-2011 Medicine (10377) bid for 0 days Quantity: 20 {Tablet} Refills: 0 Ordered: 29-Jul-2011 Ernestina Rothman Start : 09-Mar-2011 End : 29-Jul-2011 Inactive Citalopram Citalopram 10-11-2018 Kiersten De Pazensiv e Hydrobromide 10 MG Internal Medicine Oral Tablet 1/2 (06814) Tablet qd for 30 days Quantity: 15 {Tablet} Refills: 3 Ordered: 11-Oct-2018 Kiersten Mccormick LPN Start : 11-Oct-2018 Active Clarithromycin BIAXIN, 500MG (Oral 07-29-2011 - Kiersten Mccormick Com prehensive Tablet) 1 Tablet 10-23-2011 Internal Me dicine bid for 0 days (26507) Quantity: 28 {Tablet} Refills: 0 Ordered: 23-Oct-2011 Kiersten Mccormick LPN Start : 29-Jul-2011 End : 23-Oct-2011 Inactive Comments: with food Comment: with food Codeine / guaiFENesin Cheratussin AC 01-11-2017 - Kiersten Dominguez rehensive 100-10 MG/5ML 01-19-2017 Messenger Internal Medic ine Oral Syrup 1 (28584) Teaspoon(s) qhs prn for 0 days Quantity: 6 {Ounce} Refills: 0 Ordered: 19-Jan-2017 Kiersten Mccormick LPN Start : 11-Jan-2017 End : 19-Jan-2017 Inactive cyclobenzaprine FLEXERIL, 10MG 10-23-2011 - Kiersten Malone charlie (Oral Tablet) 1 11-30-2011 Jace Internal Med icine Tablet tid prn (85068) for 0 days Quantity: 30 {Tablet} Refills: 0 Ordered: 30-Nov-2011 Kiersten Mccormick LPN Start : 23-Oct-2011 End : 30-Nov-2011 Inactive NEGATED: Highlighted No Known Ernestina Compreh ensive row has not [facility]!drug or Medications (94815) medication No Known Historical Medications Ernestina Rothman [facility] Internal Medicine (38889) Enoxaparin LOVENOX, 07-03-2009 DAVID Abel 60MG/0.6ML Internal Medici ne (Subcutaneous (72340) Solution) 1 (one) Solution Daily sc for 0 days Quantity: 7 {Solution} Refills: 0 Ordered: 24-Jan-2010 DAVID Sidhu Start : 03-Jul-2009 Inactive Esomeprazole Esomeprazole 07-09-2017 - Kiersten Abel Magnesium 40 MG 07-14-2017 [facility] Internal Med icine Oral Capsule (39678) Delayed Release 1 (one) Capsule qd for 0 days Quantity: 30 {Capsule} Refills: 1 Ordered: 14-Jul-2017 Kiersten Mccormick LPN Start : 09-Jul-2017 End : 14-Jul-2017 Inactive fexofenadine / YUE-D 12 HOUR, 12-29-2010 - Kiersten ya Pseudoephedrine 60-120MG (Oral 01-13-2011 Jace Internal M edicine Tablet Extended (96826) Release 12 Hour) 1 Tablet ER 12HR q12hr for 0 days Quantity: 20 {Tablet_ER_12HR} Refills: 0 Ordered: 13-Jan-2011 Kiersten Mccormick LPN Start : 29-Dec-2010 End : 13-Jan-2011 Inactive Fluconazole Fluconazole 150 MG 05-02-2018 - Ailny Perez Compreh ensive Oral Tablet 1 10-11-2018 Internal Medic ine (one) Tablet x1 (45627) for 0 days Quantity: 1 {Tablet} Refills: 1 Ordered: 11-Oct-2018 Ailyn Perez Start : 02-May-2018 End : 11-Oct-2018 Discontinued DIFLUCAN, 150MG (Oral 04-04-2013 - DAVID De Pazens charlie Internal Tablet) uad Tablet 1 11-07-2013 Medicine (4 8510) today and may repeat in 2-3 days if not gone for 0 days Quantity: 2 {Tablet} Refills: 0 Ordered: 07-Nov-2013 DAVID Sidhu Start : 04-Apr-2013 End : 07-Nov-2013 Inactive fluticasone FLONASE, 50MCG/ACT 12-30-2010 - Kiersten Messenger Compre hensive (Nasal Suspension) 01-13-2011 Internal Medicine 2 (two) Puff(s) (80479) once daily for 0 days Quantity: 1 {Fanwood(s)} Refills: 0 Ordered: 13-Jan-2011 Kiersten Mccormick LPN Start : 30-Dec-2010 End : 13-Jan-2011 Inactive Hydrocortisone ANUSOL-HC, 25MG 06-29-2014 - Kiersten Mccormick Compreh ensive (Rectal 10-24-2014 Internal Medici ne Suppository) 1 (03687) Suppository FL every 6 hours prn for 0 days Quantity: 10 {Suppository} Refills: 1 Ordered: 24-Oct-2014 Kiersten Mccormick LPN Start : 29-Jun-2014 End : 24-Oct-2014 Inactive Ibuprofen ADVIL, 200MG (Oral DAVID De Paz ensive Tablet) for 0 days Internal Medicine Refills: 0 Ordered: (38806) 24-Jan-2010 DAVID Sidhu Inactive Lactase LACTAID, 4500UNIT 01-24-2010 DAVID De Paze nsive (Oral Tablet) for 0 Internal Medicine days Refills: 0 (43432) Ordered: 24-Jan-2010 DAVID Sidhu End : 24-Jan-2010 Discontinued Comments: This order discontinued per [facility]. Comment: This order discontinued per [facility]. methylprednisoLONE MEDROL 4 MG TBPK Take as 09-28-2017 - Benson Vaughn [facility] Now directed 10-03-2017 [facility] (66609) METHYLPREDNISOLONE [id number] Benson NAZARIO MEDROL 4 MG TBPK Take as 09-28-2017 - Benson NAZARIO [facility] No w Clinic directed 10-03-2017 (06245) METHYLPREDNISOLONE [id number] Benson NAZARIO Naproxen NAPROXEN , 500MG Ernestina Rothman Compr ehensive Internal (Oral Tablet Delayed Medicin e (14354) Release) 2 qd (500 MG) Inactive No current meds at No current meds at DAVID Wu omprehensive Internal this time this time Inactive Medicine (11169) No current meds at this time DAVID Sidhu [facility] prehensive Internal Medicine Inactive (44505) pantoprazole Pantoprazole Sodium 02-06-2019 Kiersten Mccormick Compr ehensive Internal 40 MG Oral Tablet Myah Agee Medicin e (39899) Delayed Release 1 (one) Tablet daily for 30 days Quantity: 30 {Tablet} Refills: 3 Ordered: 06-Feb-2019 Myah Agee DO, DO, Kathleen Start : 06-Feb-2019 Active Comments: EGD -- dx gastritis Protonix 40 MG Oral 10-11-2018 - 10-11-2018 Phillip Dominguez rehensive Internal Tablet Delayed Release Medicine (71317) 1 (one) Tablet daily for 30 days Quantity: 30 {Tablet} Refills: 3 Ordered: 11-Oct-2018 Phillip Noguera Start : 11-Oct-2018 End : 11-Oct-2018 Inactive Comment: EGD -- dx gastritis predniSONE PredniSONE 10 MG 01-11-2017 - Kiersten Mccormick Comprehe nsive Oral Tablet 1 (one) 01-19-2017 Internal Medicine Tablet bid x 3 then (88877) 1 daily x 3 days for 0 days Quantity: 9 {Tablet} Refills: 0 Ordered: 19-Jan-2017 Kiersten Mccormick LPN Start : 11-Jan-2017 End : 19-Jan-2017 Inactive Comments: with food Comment: with food Promethazine Promethazine HCl 01-02-2019 - Ailyn De Pazen sive 25 MG Oral Tablet 01-17-2019 Myah Agee Interna l Medicine 1 (one) Tablet q (24545) 8hr prn for 15 days Quantity: 30 {Tablet} Refills: 0 Ordered: 02-Jan-2019 Myah Agee DO, DO, Kathleen Start : 02-Jan-2019 End : 17-Jan-2019 Inactive raNITIdine ZANTAC 75, 75MG DAVID Sidhu Comprehens charlie (Oral Tablet) for Internal M edicine 0 days Refills: 0 (68716) Ordered: 24-Jan-2010 DAVID Sidhu Inactive VITAMINS/MINERALS VITAMINS/MINERALS Kiersten Mccormick Co mprehensive (Oral Tablet) (Oral Tablet) 1 Internal Me dicine daily Inactive (38780) Comments: flinstones VITAMINS/MINERALS (Oral Tablet) 1 Kiersten petersen Comprehensive Internal Medicine daily Inactive Comments: adithya (10994) Comment: flinstones Problems Active Problems Category Problem Name Status Date Location Abdominal pain Generalized Active 02-14-2018 - Comprehensive Internal abdominal pain Medicine (658 70) Anxiety disorders Anxiety Active Comprehens charlie Internal Medicine (11067 ) Chronic obstructive Bronchitis Active 01-19-2017 - Comprehe nsive Internal pulmonary disease and Medici ne (96119) bronchiectasis 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-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 other Medicine (37134) clotting factors Comment: Leiden- Deficiency and other Deficiency and other Active Comprehensive Internal anemia anemia Medicine (61671 ) Fever of unknown Fever Active 11-07-2013 Comprehensi ve Internal origin - Medicine (38107 ) Fluid and electrolyte Hypokalemia Active 02-14-2018 Compre hensive Internal disorders - Medicine (84450 ) Gastritis and Acute gastritis Active 02-14-2018 Comprehensi ve Internal duodenitis - Medicine (03148 ) Comment: EGD 12/26 cebul --- bx - said chronic moderate amt of gasttritis Genitourinary symptoms Dysuria Active 11-07-2013 - Compr ehensive Internal and ill-defined Medicine (44 741) conditions Headache; including Migraine with aura Active Co mprehensive Internal migraine Medicine (16650 ) Hemorrhoids Hemorrhoids Active Comprehensive I nternal Medicine (34882 ) Mycoses Candidiasis Active 11-07-2013 - Comprehensive I nternal Medicine (41961 ) Nausea and vomiting Nausea Active 01-24-2010 - Comprehe nsive Internal Medicine (90896 ) Comment: seems to be gastritis or radha d etology -- ppi workign - plan is to stay on for 3-4 mo then taper Nonspecific chest pain Chest pain at Active 08-20-2017 - Comp rehensive Internal rest Medicine (10839 ) Comment: multifacorial etology?-- ms with cough? illness in itself otehrs at [facility] have it too,gerd from predni sone, anx def reflaring -- will cont to follow- treat anx - try to break up phelm nad she is off pred now Other connective tissue Pain in calf Active 11-07-2013 - Comp rehensive Internal disease Medicine (85190 ) Other connective tissue Myalgia Active Comp rehensive Internal disease Medicine (99203 ) Other endocrine disorders Hypoglycemia Active Co mprehensive Internal Medicine (84055 ) Comment: eating more frequently Other gastrointestinal Diarrhea Active 01-24-2010 - Compr ehensive Internal disorders Medicine (98779 ) Other gastrointestinal Celiac disease Active Com prehensive Internal disorders Medicine (25766 ) Comment: new dx Other inflammatory Pityriasis rosea Active Compr ehensive Internal condition of skin Medicine ( 86283) Other lower respiratory Cough Active 08-20-2017 Comp rehensive Internal disease - Medicine (91410 ) Other and state, Active Compr ehensive Internal delivery including incidental Medicine (12747) normal Comment: 09/17/14 Other upper respiratory Sinusitis Active 06-29-2014 - Comp rehensive Internal infections Medicine (43776 ) Residual codes; Body Mass Index Active Comprehen sive Internal unclassified between 19-24, adult Medicin e (84007) Residual codes; Body mass index Active Comprehen sive Internal unclassified (BMI) 21.0-21.9, Medicine (4 2918) adult Spondylosis; Neck pain Active 11-07-2013 - Comprehensive I nternal intervertebral disc Medicine (25339) disorders; other back problems Unclassified FACTOR V DEFICIENCY, Active Compreh ensive Internal NOS (286.3) Medicine (47933 ) Unclassified Non-smoker Active Comprehensive I nternal Medicine (56962 ) Unclassified BMI between Active Comprehensive I nternal 19-24,adult Medicine (49770 ) Unclassified Active Comprehensive I nternal Medicine (50597 ) Viral infection Viral infection, Active Comprehe nsive Internal unspecified Medicine (12831 ) Past or Other Problems Category Problem Name Status Date Location Acute bronchitis Acute bronchitis Completed 09-28-2017 [facility] - - (31651) 11-07-2013 - Congestive heart Congestive heart Completed Compreh ensive failure; failure; Internal Medici ne nonhypertensive nonhypertensive (05836) Other complications of Anemia in the Completed 02-14-2018 Comp rehensive ; puerperium puerperium - baby - Inter nal Medicine affecting management delivered during (24 931) of mother previous episode of care Other connective Muscle pain Completed 11-07-2013 Comprehensi ve tissue disease - Internal Medi cine (44016) Other connective Spasm Completed 11-07-2013 Comprehensi ve tissue disease - Internal Medi cine (98748) Other ear and sense Impacted cerumen Completed 06-29-2014 Comp rehensive organ disorders - Internal Med icine (51991) Other ear and sense Otalgia Completed 06-29-2014 Comprehe nsive organ disorders - Internal Med icine (89376) Other female genital Disorder of female Completed 11-07-2013 C omprehensive disorders genital organs - Internal Medi cine (32714) Comment: suspect ovarian cyst - will await ultrasound results if neg for ovarian cyst will re think it and do more w/u Other injuries and H/O: fracture Completed 11-07-2013 - Comprehe nsive Internal conditions due to Medicine ( 89947) external causes Comment: right 6 years ago Other lower Postviral cough Completed 01-19-2017 - Comprehensiv e Internal respiratory disease Medicine (90957) Other skin disorders Eruption Completed 01-19-2017 - Compreh ensive Internal Medicine (94509 ) Residual codes; Influenza-like Completed 01-19-2017 - Comprehens charlie Internal unclassified symptoms Medicine (15040 ) Comment: neg Unclassified BMI 20.0-20.9, adult Completed Compreh ensive Internal Medicine (60636 ) Unclassified Impacted cerumen of both Com prehensive Internal ears (380.4) Medicine (67690 ) Unclassified Rash Comprehensive I nternal Medicine (18231 ) Unclassified Pre-operative Comprehensive Internal examination, unspecified Med icine (71930) (V72.84) Unclassified Ear pain (388.70) Comprehens charlie Internal Medicine (07164 ) Unclassified Acute generalized Comprehens charlie Internal abdominal pain Medicine (447 91) Unclassified Acute gastritis without Comp rehensive Internal hemorrhage, unspecified Medi cine (51703) gastritis type Unclassified Body mass index (BMI) Compre hensive Internal 21.0-21.9, adult Medicine (4 8391) Unclassified Abdominal Comprehensive I nternal Pain,RUQ(789.01) Medicine (4 9120) Unclassified Aneta infection (112.9) Co mprehensive Internal Medicine (25537 ) Unclassified Preprocedural examination Completed 01-24-2010 - Co mprehensive Internal done Medicine (14451 ) Comment: requested by Unclassified Unspecified Diagnosis 11-07-2013 - Compre hensive Internal Medicine (27642) Unclassified Status Comprehensi ve Internal Medicine (61945) Comment: 1 Unclassified RUQ pain Comprehensive I nternal Medicine (80964) Unclassified Flu-like symptoms Comprehens charlie Internal Medicine (28284) Unclassified Deliveries (Parity) Comprehe nsive Internal Medicine (21314) Comment: 1 Unclassified Post-viral cough syndrome Co mprehensive Internal Medicine (46425) Unclassified Vaginal yeast infection Comp rehensive Internal Medicine (09117) Unclassified Muscle spasm (728.85) Compre hensive Internal Medicine (12812) Results Result Name Value Range Unit Interpretation Flag Date Location progress on 2019-03 Protein mass conc HNO ID: [id number] Normal [facility] Author: Haleigh (Cyndie) Norma Perry ([id number]) Service: ? Author Type: Nurse Practitioner Type: Progress Notes Filed: 03/27/2019 2:25 PM Note Text: 33 year old who presents with complaints of heavy an d irregular bleeding. Pt had normal menses on 03/04/19, then starting ble eding again on 03/18/19 and is still bleeding. The bleeding in heavy like a period when she is more active and will slow when she is resting more. LMP: Patient's last menstrual period was 03/18/2019. cycles every 25-30 days and 5 days of flow Heavy bleeding? Yes Intermenstrual bleeding/spotting? Yes Dysmenorrhea? Yes History of fibroids? No History of endometrial polyps? No Sexually active: Yes History of STDS: None Patient concerns for STD exposure: No. PAST MEDICAL HISTORY Diagnosis Date - Anemia - Factor V Leiden mutation (HCC) - FRACTURE ANKLE - IBS (irritable bowel syndrome) - Lactose intolerance - Thyromegaly 02/03/2016 PAST SURGICAL HISTORY Procedure Laterality Date - ORAL SURGERY PROCEDURE Warren Teeth - PAST SURGICAL HISTORY OF RIGHT ANKLE FAMILY HISTORY Problem Relation Age of Onset - Alcohol/Drug Maternal Grandfather - Alzheimer's Disease Other MGGM - Diabetes Maternal Grandfather - Heart Paternal Grandfather - Hypertension Mother - Lipids Mother - Seizures Father DUE TO ACCIDENT - Blood Disease Father FACTOR V LEIDEN - Blood Disease Brother FACTOR V LEIDEN - Aneurysm Paternal Grandfather BRAIN SOCIAL HISTORY Social History Tobacco Use - Smoking status: Never Smoker - Smokeless tobacco: Never Used Substance Use Topics - Alcohol use: No - Drug use: No REVIEW OF SYSTEMS No recent weight gain or weight loss. Abdomen: No abdominal pain, nausea, vomiting, diarrhea, or c onstipation. No bloating, early satiety, indigestion, or increased flatul ence. +cramping Bladder: No dysuria, gross hematuria, urinary frequency, uri nary urgency, or incontinence. EXAM: BP 98/62 Wt 110 lb 6.4 oz (50.1kg) LMP 03/18/2019 GENERAL: pleasant, female in no apparent distress HEENT: Normocephalic, atraumatic, mucus membranes moist and no lesions CHEST: Normal inspiratory effort NEURO: alert and oriented x3,exam grossly non-focal EXTREMITIES: normal ASSESSMENT: Abnormal uterine bleeding PLAN: Aygestin taper ordered Follow up as needed (may need pelvic ultrasound if this does not stop or happens again) Haleigh Green APRN.CNP cnvalerie on 2019-03-27 CNOV Office Visit (WOOB) Normal 03-27-[address] [place] JAZMINE ARRIAGA ([id number]) 1985 [facility] Date Time Provider Department (57034) 03/27/19 2:00 PM HALEIGH GREEN (CYNDIE) WOOB During your visit today, we recorded the following informati on about you: Blood pressure Weight Last Period 98/62 50.1 kg 03/18/19 Haleigh Green APRN.CNP 03/27/2019 2:25 PM Signed 33 year old who presents with complaints of heavy an d irregular bleeding. Pt had normal menses on 03/04/19, then starting ble eding again on 03/18/19 and is still bleeding. The bleed ing in heavy like a period when she is more active and will slow when she is resting more. LMP: Patient's last menstrual period was 03/18/2019. cycles every 25-30 days and 5 days of flow Heavy bleeding? Yes Intermenstrual bleeding/spotting? Yes Dysmenorrhea? Yes History of fibroids? No History of endometrial polyps? No Sexually active: Yes History of STDS: None Patient concerns for STD exposure: No. PAST MEDICAL HISTORY Diagnosis Date - Anemia - Factor V Leiden mutation (HCC) - FRACTURE ANKLE - IBS (irritable bowel syndrome) - Lactose intolerance - Thyromegaly 02/03/2016 PAST SURGICAL HISTORY Procedure Laterality Date - ORAL SURGERY PROCEDURE Warren Teeth - PAST SURGICAL HISTORY OF RIGHT ANKLE FAMILY HISTORY Problem Relation Age of Onset - Alcohol/Drug Maternal Grandfather - Alzheimer's Disease Other MGGM - Diabetes Maternal Grandfather - Heart Paternal Grandfather - Hypertension Mother - Lipids Mother - Seizures Father DUE TO ACCIDENT - Blood Disease Father FACTOR V LEIDEN - Blood Disease Brother FACTOR V LEIDEN - Aneurysm Paternal Grandfather BRAIN SOCIAL HISTORY Social History Tobacco Use - Smoking status: Never Smoker - Smokeless tobacco: Never Used Substance Use Topics - Alcohol use: No - Drug use: No REVIEW OF SYSTEMS No recent weight gain or weight loss. Abdomen: No abdominal pain, nausea, vomiting, diarrhea, or constipation. No bloating, early satiety, indigestion, or increased flatulenc e. +cramping Bladder: No dysuria, gross hematuria, urinary frequenc y, urinary urgency, or incontinence. EXAM: BP 98/62 Wt 110 lb 6.4 oz (50.1kg) LMP 03/18/2019 GENERAL: pleasant, female in no apparent distress HEENT: Normocephalic, atraumatic, mucus membranes moist and no lesions CHEST: Normal inspiratory effort NEURO: alert and oriented x3,exam grossly non-focal EXTREMITIES: normal ASSESSMENT: Abnormal uterine bleeding PLAN: Aygestin taper ordered Follow up as needed (may need pelvic ultrasound if this does not stop or happens again) Haleigh Green, REAL ESTATE UNDERWRITER.LOFT WORKER APPRENTICE Referring Provider: SELF [[id number]] Allergies As of Date: 03/27/2019 Noted Allergy Reaction CIPROFLOXACIN 12/31/2011 1 - Mental Status Change 10 - Anaphylaxis Comments: Quentin like she was having an anxiety attack. Swelli ng in throat. Difficulty breathing. Took benadryl and symptoms subsided. AMOXICILLIN 03/27/2019 11 - Vomiting GLUTEN 04/05/2018 8 - GI Upset Date Reviewed: 03/27/2019 Reviewed by: Haleigh Curry) Norma - Fully Assessed Reason for Visit: Discussion [813] Cmt: irregular bleeding Primary Visit Diagnosis:Abnormal uterine bleeding (AUB) [N93 .9] Order(s):norethindrone (AYGESTIN) 5 mg tablet1 tablet TID un til bleeding stops, then 1 tablet BID x 3 days, then 1 tablet daily x 3 d aysDisp: 45 tabletRfl: 0 Prescriptions as of 03/27/2019 Sig: METOCLOPRAMIDE 5 MG TABLET Take 5 mg by mouth as needed. PROMETHAZINE 25 MG TABLET Take 25 mg by mouth every 6 h* NORETHINDRONE ACETATE 5 MG TA* 1 tablet TID until bleeding s * BUSPIRONE 15 MG TABLET Take 15 mg by mouth as needed. PANTOPRAZOLE ORAL Take 40 mg by mouth. ZANTAC ORAL Take 1 tablet by mouth as nee* Problem List As Of Date 03/27/2019 Noted Resolved Supervision of normal first [Z34.00] INVALID FOR*0 03/10/2011 Anemia, unspecified [D64.9] INVALID FOR*05/30/2014 Leukocytosis [D72.829] INVALID FOR*05/30/2014 Thrombophilia (HCC) [D68.59] INVALID FOR*05/30/2014 Ovarian cyst [N83.209] INVALID FOR*05/30/2014 Pelvic pain in female [R10.2] INVALID FOR*05/30/2014 Candidiasis of vulva and vagina [B37.3] INVALID FOR*11/24/19 14 Ulceration of vulva, unspecified [N76.6] INVALID FOR* 012 with care elsewhere [Z34.90] INVALID FOR* 11/06/2014 More... Heterozygous factor V Leiden mutation (HCC) [D6*INVALID FOR* More... History of anxiety [Z86.59] INVALID FOR* More... History of hemorrhoids [Z87.19] INVALID FOR*05/30/2014 Constipation in [O99.619, K59.00] INVALID FOR*05/09 More... Nausea and vomiting in [O21.9] INVALID FOR* 014 More... Mother positive for group B Streptococcus colon*INVALID FOR* 11/06/2014 More... Anemia complicating [O99.019] INVALID FOR*04/02/20 16 High-risk [O09.90] INVALID FOR*11/06/2014 More... Encounter for supervision of normal i*INVALID FOR* 04/02/2016 Group B Streptococcus carrier, antepartum [O99.*INVALID FOR* 04/02/2016 More... Anemia affecting [O99.019] INVALID FOR*04/02/2016 More... Iron deficiency anemia [D50.9] INVALID FOR*04/02/2016 Iron malabsorption [K90.9] INVALID FOR*04/02/2016 Encounter for supervision of normal first pregn*INVALID FOR* 04/02/2016 Thyromegaly [E01.0] INVALID FOR* Prescriptions ordered this encounter Disp Refills Start End NORETHINDRONE ACETATE 5 MG TABLET 45 t* 0 03/27/2019 Si tablet TID until bleeding stops, then 1 tablet BID x 3 days, then 1 tablet daily x 3 days Encounter Status:Closed by HALEIGH GREEN on 03/27/19 nm gastric emptying study on 2018-12-02 NM GASTRIC ORIGINAL Normal 12-02-2018 [facility] EMPTYING STUDY [place] GASTRIC EMPTYING STUDY [facility] ([place]) ([id number]) Clinical Statement: EPIGASTR IC ABDOMINAL PAIN, ABDOMINAL PAIN, nausea with every meal over 2 years, normal small bowel study and HIDA scan, gastritis per endoscopy Technique: Radiopharmaceutical: Tc-99m Sulfur Colloid po Dose: 2.3mCi Tc-99m sulfur colloid in a scrambled egg sandwi ch Anterior and posterior images of the stomach for 2 hours Calculate geometric mean of anterior and posterior images Calculate T 1/2 for gastric emptying Comparison: None Report: There is borderline delayed gastric emptying of solid food. The T1/2 is 120 minutes. The upper limit of normal for our laboratory is 120 minutes. Impression: Borderline dilated gastric e mptying of solid food. The TI/2 is 120 minutes, which is the upper limit of normal. I have personally reviewed t he images of this examination and agree with the resident's findings and interpretation. Interpreted By: Alexandro Jerry MD Preliminary Report By: Jaspreet Mcfarlane DO Electronically Signed By: Alexandro Jerry MD Dictated Date: 12/02/2018 1:21:18 PM Prelim Date: 12/02/2018 2:13:03 PM Sign Date: 12/02/2018 3:20:52 PM established visit (gastroenterology) on 2018-11-15 Established Visit Chief ComplaintGastritis, nausea History Normal 11-15-2018 (Gastroenterology) of Present Bthxknj75-gysi-lxq female [employer] presents today as a follow-up after (23016) recent EGD performed on 11/02/18. Exam demonstrated nonspecific gastritis but was otherwise normal and H. pylori was negative. She states that she felt very sick for the 2 days prior to her exam and did not eat. Patient has noticed mild improvement in her nausea and upper abdominal pain since continuing her pantoprazole 40 mg in the morning and Nexium 40 mg at night. He is denying reflux or regurgitation. However, she continues to take split doses of Phenergan several times per week and is following a gluten-free diet. There continues to be no vomiting due to her phobia and anxiety. Her epigastric pain is worse after eating too much and despite limiting her diet, continues to present itself after meals. She does complain of early satiety and bloating. Her ultrasound and HIDA scan were able to be obtained which were both unremarkable. There is no diarrhea or constipation as well as gross blood per rectum. She is denying fevers, chills, or weight loss. Review of SystemsConst: Reports low-grade fever and her weight has fluctuated. She denies fatigue.CV: Denies chest pain, pacemaker, palpitations and valvular heart disease.Resp: Denies cough, sleep apnea, SOB and snoring.GI: Denies symptoms other than stated above.Musculo: Denies joint pain and muscle pain.Skin: Denies hives and rash.Neuro: Denies seizures and stroke.Psych: Reports anxiety but denies depression.Endocrine: Denies intolerance to cold, hot flashes and impaired glucose tolerance.Samuel/Lymph: Denies anemia, blood transfusions, chemotherapy, enlarged lymph nodes and radiation treatment of any kind. 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) H/O pityriasis rosea (V13.3) (Z87.2) History of anxiety (V11.8) (Z86.59) History of celiac disease (V12.79) (Z87.19) Denied: History of complications due to general anesthesia History of migraine headaches (V12.49) (Z86.69) Surgical History Denied: History of Colonoscopy History of Esophagogastroduodenoscopy History of Oral surgery Family History Family history of hypertension (V17.49) (Z82.49) Denied: Family history of malignant neoplasm of colon Social History Denies alcohol consumption (V49.89) (Z78.9) History of body piercing (V45.89) (Z98.890) EARS, NOSE, [place] History of tattoo (709.09) (L81.8) No advance directives (V49.89) (Z78.9) No illicit drug use Non-smoker (V49.89) (Z78.9) Denied: History of Occasional caffeine consumption STOPPED- BEGINNING 2017 Well balanced diet (V49.89) (Z78.9) GLUTEN FREE Allergies Cipro Shortness of breath;; Updated By: Kala Gordon; 11/15/2018 12:05:04 PM amoxicillin Nausea; Recorded By: Kala Gordon; 11/15/2018 12:05:04 PM No Known Food Allergies Recorded By: Kala Gordon; 11/15/2018 12:05:04 PM Current Meds NexIUM 24HR 20 MG Oral Tablet Delayed Release; 2 pills at night;Therapy: (Recorded:15Nov2018) to Recorded Dispense: 0 Days ; #: Sufficient Tablet; Refill: 0;For: SocHx: Occasional caffeine consumption; GHANSHYAM = N; Record; Last Updated By: Keyonna Valdez; 11/15/2018 12:42:20 PM DentaGel 1.1 % Dental Gel;Therapy: [id number] to Recorded Rx By: ARIC; Dispense: 30 Days ; #:56; Refill: 0; GHANSHYAM = N; Record; Last Updated By: Kala Gordon; 11/15/2018 12:05:04 PM Pantoprazole Sodium 40 MG Oral Tablet Delayed Release; one daily;Therapy: (Recorded:15Nov2018) to Recorded Dispense: 0 Days ; #: Sufficient Tablet; Refill: 0; GHANSHYAM = N; Record; Last Updated By: Keyonna Valdez; 11/15/2018 12:42:20 PM Phenergan 25 MG TABS;Therapy: (Recorded:15Nov2018) to Recorded Dispense: 0 Days ; #: Sufficient Each; Refill: 0; GHANSHYAM = N; Record; Last Updated By: Keyonna Valdez; 11/15/2018 12:42:20 PM Probiotic Formula 1-250 BILLION-MG Oral Capsule;Therapy: (Recorded:15Nov2018) to Recorded Dispense: 0 Days ; #: Sufficient; Refill: 0; GHANSHYAM = N; Record; Last Updated By: Keyonna Valdez; 11/15/2018 12:42:20 PM Vitals Vital Signs Recorded: 15Nov2018 11:41WOXruqhksg407Czpujrpch79Gduktr9 ft 4 jqXvnkba914 lb BMI Wcwdhaqsmn02.91BSA Calculated1.55 Physical ExamConst: Vital signs reviewed.ENMT: Oral mucosa moist with no thrush and no mucositis.Neck: Supple and symmetric. Thyroid is normal in size and texture.Resp: Respiration rate is normal. Clear to auscultation.CV: Rhythm is regular. No heart murmur appreciated. Carotids 2+ and equal bilaterally, without bruits. Femorals 2+ and equal bilaterally, without bruits.Abdomen: Positive bowel sounds in all quadrants. No bruits. Normal to percussion. Palpation of the abdomen reveals softness with mild epigastric tenderness. No distension or fluid wave. No abdominal masses. No hernias. No palpable hepatosplenomegaly.Anus/Perineum/Rectum: Exam deferred.Lymph: No visible or palpable cervical lymphadenopathy. Inguinal nodes not palpable.Skin: Dry and warm with no nodularity or rash.Psych: Affect is normal. Alert and oriented x3.Neuro: Cranial nerves intact. No focal motor defects. Results/Data1. Small bowel series 01/27/18: Normal progression of barium seen throughout different parts of the small bowel or cecum ratio proximally 2 hours after barium was ingested. Duodenum, jejunum, and ileum mucosal pattern was unremarkable. Fluoroscopic exam of the terminal loop showed no abnormality.2. EGD 12/17/17: Small hiatal hernia, minimal antral erythema, small prepyloric polyp. Biopsies demonstrated chronic superficial gastritis and changes consistent with acid reflux in the distal esophagus. Duodenal biopsy and celiac biopsy were negative for celiac disease and H. pylori.3. Lab studies 01/12/18: CRP less than 20.90. Immuno A 240, tTG IGA 3, endomysial IGA positive. 4. HIDA scan 11/22/17: Normal ejection fraction at 40%. There is evidence of post-CCK duodenal gastric reflux., Her ultrasound 07/15/17: Normal gallbladder without evidence of cholecystitis or cholelithiasis. No ductal dilatation. Diagnoses/Problems Adult celiac disease (579.0) (K90.0) Chronic superficial gastritis (535.40) (K29.30) Hiatal hernia with GERD without esophagitis (553.3,530.11) (K44.9,K21.9) Intermittent epigastric abdominal pain (789.06) (R10.13) Nausea in adult (787.02) (R11.0) Early satiety (780.94) (R68.81) OrdersIntermittent epigastric abdominal pain, Nausea in adult NM Gastric Empty Solid Only; Status:Hold For - Scheduling; Requested for::30AM; Perform:[facility]; Order Comments:PATIENT IS GLUTEN FREE AND HAS BEEN INSTRUCTED TO BRING HER OWN BREAD- SHE VERBALIZED UNDERSTANDNG; Due:02Mar2019;Ordered; For:Intermittent epigastric abdominal pain, Nausea in adult; Ordered By:Keyonna Valdez;Radiologist to Determine Optimal Study : YWhat are the patient's signs and symptoms? : Postprandial nausea, epigastric painSocHx: Occasional caffeine consumption Continue: NexIUM 24HR 20 MG Oral Tablet Delayed Release; 2 pills at night Dispense: 0 Days ; #: Sufficient Tablet; Refill: 0;For: SocHx: Occasional caffeine consumption; GHANSHYAM = N; Record; Last Updated By: Keyonna Valdez; 11/15/2018 12:42:20 PMUnlinked Continue: Pantoprazole Sodium 40 MG Oral Tablet Delayed Release; one daily Dispense: 0 Days ; #: Sufficient Tablet; Refill: 0; GHANSHYAM = N; Record; Last Updated By: Keyonna Valdez; 11/15/2018 12:42:20 PM Continue: Phenergan 25 MG TABS (Promethazine HCl) Dispense: 0 Days ; #: Sufficient Each; Refill: 0; GHANSHYAM = N; Record; Last Updated By: Keyonna Valdez; 11/15/2018 12:42:20 PM Continue: Probiotic Formula 1-250 BILLION-MG Oral Capsule Dispense: 0 Days ; #: Sufficient; Refill: 0; GHANSHYAM = N; Record; Last Updated By: Keyonna Valdez; 11/15/2018 12:42:20 PM Patient Discussion/Summary1. Obtain gastric emptying study.2. Continue pantoprazole 40 mg every morning and Nexium 40 mg every evening. Lifestyle changes to help alleviate heartburn/reflux were discussed. These include avoiding spicy and greasy foods, tomato based products, mint and caffeine. Alcohol and smoking should be avoided. Patient should keep at least 3 hours between eating and going to sleep. Being of a normal weight helps decrease heartburn symptoms.3. Continue gluten free diet.4. Return to office status post gastric study for reevaluation. [facility] surgical pathology department on 2018-11-02 [facility] Surgical Name JAZMINE ARRIAGA Accession Norm al 11-02-2018 [facility] Pathology #: [id number] Pathologist: [facility] Department PABLO VALDES, MDDate of ([id number]) Procedure: 11/02/2018Date Received: 11/02/2018Date Reported 11/03/2018Submitting Physician: ROSALEE SUH DOLocation: APMISC Other External # FINAL DIAGNOSISA. ANTRUM BIOPSY: --GASTRIC OXYNTIC TYPE MUCOSA WITH MINIMAL CHRONIC INFLAMMATION.--NO MORPHOLOGIC EVIDENCE OF HELICOBACTER ORGANISMS SEEN ON H AND E SLIDES.Interpretation performed [facility] [id number] [place], [place] [address]Qesvv: Electronically Signed Out By PABLO VALDES MD/NIKITABy the signature on this report, the individual or group listed as making theFinal Interpretation/Diagnosis certifies that they have reviewed this case. Microscopic Description:All slides are examined microscopically and the diagnosis is stated above.Clinical History:Nausea and vomitting R11.2Specimens Submitted As:A: ANTRUM BIOPSY Gross Description:Received in formalin, labeled with the patient's name and hospital number andbiopsy antrum, are 2 fragments of quinonez, soft tissue aggregating to 0.6 x 0.2 x0.1 cm. The specimen is submitted in toto in one cassette.DPGdpg/11/02/2018 Comment: Performed By: #### [facility] #### [facility] Surgical Pathology [id number] [facility] [id number] initial visit (gastroenterology) on 2018-10-26 Initial Visit Chief ComplaintGastritis, nausea History Normal 10-26-2018 (Gastroenterology) of Present Fnymvpx05-ecwe-mom female Monae presents today as a new patient for (21547) evaluation of persistent nausea and gastritis. Patient was previously seeing Dr. Young but requested becoming established with a new gastroenterology practice. Patient began experiencing postprandial nausea and upper abdominal pain earlier this year. Routine laboratory studies were performed by her primary care physician and patient states that she was diagnosed with celiac disease. She began following a gluten-free diet with some improvement in symptomology. She has continued this diet. Patient was evaluated by Dr. Young as a surgical consult and according to patient, a gallbladder ultrasound and subsequent HIDA scan were unremarkable. However, she states that she had extreme nausea and some epigastric and right upper quadrant pain during the HIDA scan. A cholecystectomy was not recommended after reviewing the HIDA scan results. She then underwent an EGD on 12/17/17 which demonstrated a small hiatal hernia and minimal gastritis. Biopsies were negative for celiac disease and H. pylori at that time. Patient was then referred to Dr. Young for a GI workup and a small bowel series was ordered in January which was normal. Patient has been on pantoprazole 40 mg twice daily on and off for the last year. She was recently restarted on this 3 weeks ago and has been compliant. She states that it does mildly improved her symptoms. She is currently denying heartburn or regurgitation. She complains of continuous, daily pain in her upper abdomen described as a dull ache and rates this as a 3 out of 10. Postprandially, she will experience stabbing pain in her epigastric and right upper quadrants rated as a 6-9 out of 10. This will occasionally radiate towards her right shoulder. She continues to experience daily nausea postprandially requiring her to take promethazine on a daily basis. She denies vomiting stating that she has a phobia of vomiting which will lead to a anxiety attack. She also states that she is having soft, yellow colored stool once a day. However, this has improved since resuming her PPI. There's been no evidence of blood or melena. She denies diarrhea or constipation. She denies mid to lower abdominal discomfort. Patient's appetite is fair and her weight has been fluctuating. She does admit to a low-grade fever around 99.5. There is no history of inflammatory bowel disease or colorectal cancer. There is a significant family history of gallbladder disease. Review of SystemsConst: Reports low-grade fever and her weight has fluctuated. She denies fatigue.CV: Denies chest pain, pacemaker, palpitations and valvular heart disease.Resp: Denies cough, sleep apnea, SOB and snoring.GI: Denies symptoms other than stated above.Musculo: Denies joint pain and muscle pain.Skin: Denies hives and rash.Neuro: Denies seizures and stroke.Psych: Reports anxiety but denies depression.Endocrine: Denies intolerance to cold, hot flashes and impaired glucose tolerance.Samuel/Lymph: Denies anemia, blood transfusions, chemotherapy, enlarged lymph nodes and radiation treatment of any kind. 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) H/O pityriasis rosea (V13.3) (Z87.2) History of anxiety (V11.8) (Z86.59) History of celiac disease (V12.79) (Z87.19) History of migraine headaches (V12.49) (Z86.69) Surgical History History of Oral surgery Family History Family history of hypertension (V17.49) (Z82.49) Social History Denies alcohol consumption (V49.89) (Z78.9) No illicit drug use Non-smoker (V49.89) (Z78.9) Occasional caffeine consumption Allergies Cipro Recorded By: Arnold Colunga; 10/24/2018 2:15:59 PM Current Meds Pantoprazole Sodium 40 MG Oral Tablet Delayed Release;Therapy: (Recorded:[id number]) to Recorded Dispense: 0 Days ; #: Sufficient; Refill: 0; GHANSHYAM = N; Record; Last Updated By: Unique Pryor; 10/26/2018 10:16:52 AM Phenergan 25 MG TABS;Therapy: (Recorded:77Vpb5631) to Recorded Dispense: 0 Days ; #: Sufficient; Refill: 0; GHANSHYAM = N; Record; Last Updated By: Unique Pryor; 10/26/2018 10:16:52 AM Probiotic Formula 1-250 BILLION-MG Oral Capsule;Therapy: (Recorded:[id number]) to Recorded Dispense: 0 Days ; #: Sufficient; Refill: 0; GHANSHYAM = N; Record; Last Updated By: Unique Pryor; 10/26/2018 10:16:52 AM Vitals Vital Signs Recorded: 64Cal4642 10:11AMHeart Jvnd75Gcpkftrg325Wapimwcye52Mxfqel7 ft 4 pbQmjfgm223 lb 2 ozBMI Dlfpnlwkcq15.76BSA Calculated1.55 Physical ExamConst: Vital signs reviewed.ENMT: Oral mucosa moist with no thrush and no mucositis.Neck: Supple and symmetric. Thyroid is normal in size and texture.Resp: Respiration rate is normal. Clear to auscultation.CV: Rhythm is regular. No heart murmur appreciated. Carotids 2+ and equal bilaterally, without bruits. Femorals 2+ and equal bilaterally, without bruits.Abdomen: Positive bowel sounds in all quadrants. No bruits. Normal to percussion. Palpation of the abdomen reveals softness with mild epigastric tenderness. No distension or fluid wave. No abdominal masses. No hernias. No palpable hepatosplenomegaly.Anus/Perineum/Rectum: Exam deferred.Lymph: No visible or palpable cervical lymphadenopathy. Inguinal nodes not palpable.Skin: Dry and warm with no nodularity or rash.Psych: Affect is normal. Alert and oriented x3.Neuro: Cranial nerves intact. No focal motor defects. Results/Data1. Small bowel series 01/27/18: Normal progression of barium seen throughout different parts of the small bowel or cecum ratio proximally 2 hours after barium was ingested. Duodenum, jejunum, and ileum mucosal pattern was unremarkable. Fluoroscopic exam of the terminal loop showed no abnormality.2. EGD 12/17/17: Small hiatal hernia, minimal antral erythema, small prepyloric polyp. Biopsies demonstrated chronic superficial gastritis and changes consistent with acid reflux in the distal esophagus. Duodenal biopsy and celiac biopsy were negative for celiac disease and H. pylori.3. Lab studies 01/12/18: CRP less than 20.90. Immuno A 240, tTG IGA 3, endomysial IGA positive. Diagnoses/Problems Nausea in adult (787.02) (R11.0) Intermittent epigastric abdominal pain (789.06) (R10.13) Adult celiac disease (579.0) (K90.0) Hiatal hernia with GERD without esophagitis (553.3,530.11) (K44.9,K21.9) Chronic superficial gastritis (535.40) (K29.30) OrdersIntermittent epigastric abdominal pain Endoscopy - Upper GI; Status:Complete; Done: [id number] Perform:Non Facility; Due:31Jan2019; Last Updated By:Unique Pryor; 10/26/2018 11:48:22 AM;Ordered; Stat; For:Intermittent epigastric abdominal pain; Ordered By:Rosalee Suh;GI Mental Competence : Yes-pt mentally competent to provide consentEGD/Sigmoid Indications : Epigastric pain despite Rxx Patient Discussion/Summary1. The differential diagnosis of the patients symptoms was discussed, and an upper endoscopy examination was recommended. The procedure and sedation were discussed including but not limited to risks of bleeding, perforation and reaction to medication including cardiopulmonary events. The office endoscopy forms were reviewed and signed. The patient was instructed on not being able to drive the day of the exam after being sedated. All of the patients questions were answered. 2. The patient appears medically stable for sedation and endoscopy.3. Continue pantoprazole 40 mg twice daily. 4. Lifestyle changes to help alleviate heartburn/reflux were discussed. These include avoiding spicy and greasy foods, tomato based products, mint and caffeine. Alcohol and smoking should be avoided. Patient should keep at least 3 hours between eating and going to sleep. Being of a normal weight helps decrease heartburn symptoms.5. Obtain ultrasound and HIDA scan from Dr. Young. Signatures Electronically signed by : Keyonna Valdez PA-C; Oct 26 2018 2:01PM EST (Author) cnnurse on CNNURSE Nurse Visit ([facility]) Normal [facility] JAZMINE ARRIAGA ([id number]) 1985 [facility] Date Time Provider Department ([id number]) 08/06/18 11:00 AM NURSE [facility] During your visit today, we recorded the following informati on about you: Trudy Larkin CMA, MA 08/06/2018 11:10 AM Signed 32 year old female here for INACTIVATED INFLUENZA VACCINE. [id number] Season Patient is identified by name and date of : Yes ___ [] CONTRAINDICATIONS color enhanced section Age less than 6 months? No Allergy to eggs, chicken, chicken feathers, or chicken dande r? No Allergy to thimerosal (a preservative) or formaldehyde, addison tin? No History of severe reaction to any vaccine component or a pre vious dose of influenza vaccination? No History of Guillain-Gardena Syndrome within 6 weeks afte r a previous influenza vaccine? No Patient is not moderately or severely ill? No Current temperature greater or equal to 100.4F? No History of Bone Marrow Transplant prior 6 months or solid organ transplant in the past 3 months ? No History of fainting after a prior injection or medical proce dure? No- ? If patient has fainted in the past, th e CDC recommends sitting or lying down for 15 minutes after the vaccination. ___ [] VERIFICATION color enhanced section Was the answer Yes for any of the above contraindications? No contraindications present. Acceptable to proceed with vaccin e. No Patient/guardian agrees the above answers are true to the be st of their knowledge? Yes Flu vaccine information sheet given? Yes See immunization activity in [facility] details of immunizations adminstered today. Patient age: [age] year old For The 9847-6977 Flu Season 6-35 months old: Fluzone 0.25 ml - IM (Preservative Free) 3 years of age: Fluzone 0.5 ml - IM (Preservative Free) 3 years and older: Fluzone 0.5 ml- IM-(with Preservatives) 65+ years old: 2-49 years old Fluzone High-Dose 0.5 ml - IM (Preservative F ree) FLUMIST- intranasal REMEMBER: If patient is less than 9 year s of age and this is the first vaccine of Influenza to be received in any flu season, they should receive a second dose in one months time. Referring Provider: SELF [200] Allergies As of Date: 08/06/2018 Noted Allergy Reaction CIPROFLOXACIN 12/31/2011 1 - Mental Status Change 10 - Anaphylaxis Comments: Quentin like she was having an anxiety attack. Swelli ng in throat. Difficulty breathing. Took benadryl and symptoms subsided. GLUTEN 04/05/2018 8 - GI Upset Date Reviewed: 07/13/2018 Reviewed by: Haleigh ([facility]) Norma - Fully Assessed Reason for Visit: Imm/Inj [58] Cmt: Flu Vaccine Primary Visit Diagnosis:Need for vaccination [Z23] Order(s):INFLUENZA VACCINE QUADRIVALENT AGE 3 YRS PLUS + IM [[id number]] Order #: [id number] Prescriptions as of 08/06/2018 Sig: BUSPIRONE 15 MG TABLET Take 15 mg by mouth as needed. PANTOPRAZOLE ORAL Take 40 mg by mouth. ZANTAC ORAL Take 1 tablet by mouth as nee* Problem List As Of Date 08/06/2018 Noted Resolved Supervision of normal first [Z34.00] INVALID FOR*0 03/10/2011 Anemia, unspecified [D64.9] INVALID FOR*05/30/2014 Leukocytosis [D72.829] INVALID FOR*05/30/2014 Thrombophilia (HCC) [D68.59] INVALID FOR*05/30/2014 Ovarian cyst [N83.209] INVALID FOR*05/30/2014 Pelvic pain in female [R10.2] INVALID FOR*05/30/2014 Candidiasis of vulva and vagina [B37.3] INVALID FOR*11/24/19 14 Ulceration of vulva, unspecified [N76.6] INVALID FOR* 012 with care elsewhere [Z34.90] INVALID FOR* 11/06/2014 More... Heterozygous factor V Leiden mutation (HCC) [D6*INVALID FOR* More... History of anxiety [Z86.59] INVALID FOR* More... History of hemorrhoids [Z87.19] INVALID FOR*05/30/2014 Constipation in [O99.619, K59.00] INVALID FOR*05/09 More... Nausea and vomiting in [O21.9] INVALID FOR* 014 More... Mother positive for group B Streptococcus colon*INVALID FOR* 11/06/2014 More... Anemia complicating [O99.019] INVALID FOR*04/02/20 16 High-risk [O09.90] INVALID FOR*11/06/2014 More... Encounter for supervision of normal i*INVALID FOR* 04/02/2016 Group B Streptococcus carrier, antepartum [O99.*INVALID FOR* 04/02/2016 More... Anemia affecting [O99.019] INVALID FOR*04/02/2016 More... Iron deficiency anemia [D50.9] INVALID FOR*04/02/2016 Iron malabsorption [K90.9] INVALID FOR*04/02/2016 Encounter for supervision of normal first pregn*INVALID FOR* 04/02/2016 Thyromegaly [E01.0] INVALID FOR* Encounter Status:Closed by TRUDY LARKIN CMA on 08/06/18 progress on 2018-07 Protein HNO ID: [id number] Normal 08-03-2018 [place] mass Author: Trudy TylerBela) JESSICA [facility] conc Service: (none) Michel mckinley Author Type: Distiller ([id number]) Type: Progress Notes Filed: 08/06/2018 11:10 AM Note Text: 32 year old female here for INACTIVATED INFLUENZA VACCINE. Season Patient is identified by name and date of : Yes ___ [] CONTRAINDICATIONS color enhanced section Age less than 6 months? No Allergy to eggs, chicken, chicken feathers, or chicken dande r? No Allergy to thimerosal (a preservative) or formaldehyde, addison tin? No History of severe reaction to any vaccine component or a pre vious dose of influenza vaccination? No History of Guillain-Gardena Syndrome within 6 weeks after a pr evious influenza vaccine? No Patient is not moderately or severely ill? No Current temperature greater or equal to 100.4F? No History of Bone Marrow Transplant prior 6 months or solid or ninoska transplant in the past 3 months ? No History of fainting after a prior injection or medical proce dure? No- ? If patient has fainted in the past, the CDC recommends sit ting or lying down for 15 minutes after the vaccination. ___ [] VERIFICATION color enhanced section Was the answer Yes for any of the above contraindications? No contraindications present. Acceptable to proceed with vaccin e. No Patient/guardian agrees the above answers are true to the be st of their knowledge? Yes Flu vaccine information sheet given? Yes See immunization activity in EpicCare for details of immuniz ations adminstered today. Patient age: [age] year old For The Flu Season 6-35 months old: Fluzone 0.25 ml - IM (Preservative Free) 3 years of age: Fluzone 0.5 ml - IM (Preservative Free) 3 years and older: Fluzone 0.5 ml- IM-(with Preservatives) 65+ years old: 2-49 years old Fluzone High-Dose 0.5 ml - IM (Preservative F ree) FLUMIST- intranasal REMEMBER: If patient is less than 9 years of age and this is the first vaccine of Influenza to be received in any flu season, they should receive a second dose in one months time. progress on 2018-07 Protein mass conc HNO ID: [id number] Normal [facility] Author: Breann Wang [place] ([id number]) Service: (none) Author Type: (none) Type: Progress Notes Filed: 07/22/2018 10:20 AM Note Text: Pap logged and normal pap letter sent to patient. Breann olivarez progress on 2018-07 Protein mass conc HNO ID: [id number] Normal [facility] Author: Haleigh Green [place] ([id number]) Service: (none) Author Type: Nurse Practitioner Type: Progress Notes Filed: 07/13/2018 2:03 PM Note Text: Jazmine Arriaga is a 32 year old who presents for her annual gynecologic exam some ovary pain related to cyst that happen s random Menses: cycles every 25-30 days and 2-3 days of flow. Contraception: vasectomy HPV vaccine: Yes 2 doses Last Pap: 2014 normal HPV: N/A History of abnormal pap: No Last mammogram: never Sexually active: Yes Pain with intercourse: Yes Postcoital bleeding: No Obstetric History T3 L3 SAB0 TAB0 Ectopic0 Multiple0 Live Births3 PAST MEDICAL HISTORY Diagnosis Date - Anemia - Factor V Leiden mutation (HCC) - FRACTURE ANKLE - IBS (irritable bowel syndrome) - Lactose intolerance - Thyromegaly 02/03/2016 PAST SURGICAL HISTORY Procedure Laterality Date - ORAL SURGERY PROCEDURE Warren Teeth - PAST SURGICAL HISTORY OF RIGHT ANKLE FAMILY HISTORY Problem Relation Age of Onset - Alcohol/Drug Maternal Grandfather - Alzheimer's Disease Other MGGM - Diabetes Maternal Grandfather - Heart Paternal Grandfather - Hypertension Mother - Lipids Mother - Seizures Father DUE TO ACCIDENT - Blood Disease Father FACTOR V LEIDEN - Blood Disease Brother FACTOR V LEIDEN - Aneurysm Paternal Grandfather BRAIN SOCIAL HISTORY Social History Substance Use Topics - Smoking status: Never Smoker - Smokeless tobacco: Never Used - Alcohol use No REVIEW OF SYSTEMS Abdomen: No abdominal pain, nausea, vomiting, diarrhea, or c onstipation. No bloating, early satiety, indigestion, or increased flatul ence. Bladder: No dysuria, gross hematuria, urinary frequency, uri nary urgency, or incontinence. Breast: No breast lumps, nipple d/c, overlying skin changes, redness or skin retraction. Allergies and current medication updated:Yes EXAM: Ht 5' 3.25 (1.61m) Wt 119 lb 6.4 oz (54.2kg) LMP 06/18/2018 BMI 20.97 kg/(m2). GENERAL: pleasant, female in no apparent distress HEENT: Normocephalic, atraumatic, mucus membranes moist and no lesions NECK: Supple, full range of motion, no adenopathy and thyroi d normal DERMATOLOGY: Normal, without lesions, non-icteric and non-hi rsute BREAST: soft, non-tender, symmetric, no dominant mass, serina l nipple-areolar complex, no lymphadenopathy and no nipple dis charge CHEST: Normal inspiratory effort ABDOMEN: soft, non-tender and no masses PELVIC: external genitalia normal, normal Bartholin's glands , urethra, [place]'s glands, no vulvar lesions, no cervical lesions, good vaginal support, physiologic discharge present, normal appearing per ineal body and perianal region, well estrogenized BIMANUAL: uterus normal size, shape and consistency, no adne xal masses, non-tender and no cervical motion tenderness RECTOVAGINAL: deferred. NEURO: alert and oriented x3,exam grossly non-focal EXTREMITIES: normal ASSESSMENT/PLAN: 1) Health maintenance: Pap done with HPV. Nutrition, exercise and routine health maintenance exams rev iewed. Calcium/Vitamin D supplementation information provided. 2) Contraception: vasectomy. Contraceptive options reviewed and information provided. 3) STD screening: Declined STD check. 4) Follow up one year or sooner as needed Haleigh Green APRN.LOFT WORKER APPRENTICE hpv w/genotype on HPV HighRisk Negative for HPV DNA high risk types: Normal 07-13-2018 [place] Other 31,33,35,39,45,51,52,56,58,59,66,68 by Clinic PCR. [place] ([id number]) Comment: Result Comment: This test wa s developed and its performance characteristics determined by [facility]'s Dakota Jack[facility] [place] ([facility]). It has not been cleared or a pproved by the FDA. -[facility] is regulated under CLIA as qualified to perform high-complexity testing. This test is used for clinical purposes. It should not be regarded as inv estigational or for research . Performed By: #### HPVHRR ## ## [facility] [phone] HPV HighRisk Type 16 Negative for HPV DNA Normal 07-13-2018 [facility] high risk type 16 by [place] ([id number]) PCR. Comment: Performed By: #### HPVHRR ## ## [place] [address] [place] [phone] HPV HighRisk Type 18 Negative for HPV DNA Normal 07-13-2018 [facility] high risk type 18 by [place] ([id number]) PCR. Comment: Performed By: #### HPVHRR ## ## [place] [address] [place] [phone] cytology on 2018-07 CYTOLOGY Normal 07-13-2018 [place] ADDITIONAL PROCEDURES PRESENT Clinic [place] ([id number]) Specimen originated from [facility] Specimen #: [id number] Submitting Physician: HALEIGH GREEN SPECIMEN SUBMITTED A: CERVICAL, SCREENING, FLUID FINAL DIAGNOSIS A. CERVICAL, SCREENING, FLUID Satisfactory for interpretation. Negative for intraepithelial lesion or malignancy. This specimen has been analyzed by the ThinPrep Imaging Syst em, an automated imaging and review system, which assists the labor atory in evaluating cells on ThinPrep Pap tests. Following automated imaging, selected paul from every slide are reviewed by a cytotechn ologist. HIRO Lewis(ASCP) (Electronic Signature) ADDITIONAL PROCEDURE(S) HUMAN PAPILLOMA VIRUS Date Ordered: 07/15/2018 Date Reported: 07/18/2018 Procedure Results and Interpretation Negative for HPV DNA high risk type 16 by PCR. Negative for HPV DNA high risk type 18 by PCR. Negative for HPV DNA high risk types: 31,33,35,39,45,51,52,5 6,58,59,66,68 by PCR. This test was developed and its performance characteristics determined by [facility]'s Dakota Jackman [facility] Pathology and Laborator y Medicine [place] ([facility]). It has not been cleared or approved by the FDA. [facility] is r egulated under CLIA as qualified to perform high-complexity testing. This test is used for clinical purposes. It should not be regarded as investigatio nal or for research. CLINICAL DATA ROUTINE EXAM, HPV Testing: Yes, automatic HPV patients over 30 Date of Last Menstrual Period: 06/18/2018 STAINS A: CERVICAL, SCREENING, FLUID THIN PREP DRILLER AND BROACHER Ernestina Walter M.D., Esthetician Makeup Artist Date of Report: 07/22/2018 Date of Procedure: 07/13/2018 Date of Receipt: 07/15/2018 Submitted by: HALEIGH GREEN Location: [facility] Diagnostic interpretation performed at [facility], [address] [place], [place] [id number]. The Pap Smear is a screening test for cervical cancer. False negative results occur with all screening tests, emphasizing the need for rescreening at recommended intervals, and clinical correlati on. cnov on 2018-07-13 CNOV Office Visit (WOOB) Normal 07-13-2018 [place] [facility] JAZMINE ARRIAGA ([id number]) 1985 [facility] Date Time Provider Department ([id number]) 07/13/18 1:15 PM HALEIGH GREEN (LOFT WORKER APPRENTICE) WOOB During your visit today, we recorded the following informati on about you: Blood pressure Weight Height Last Period 100/60 54.2 kg 1.607 m 06/18/18 Haleigh Green APRN.CNP 07/13/2018 2:03 PM Signed Jazmine Sainz Radha is a 32 year old who presents for her annual gynecologic exam some ovary pain related to cyst that happen s random Menses: cycles every 25-30 days and 2-3 days of flow. Contraception: vasectomy HPV vaccine: Yes 2 doses Last Pap: 2014 normal HPV: N/A History of abnormal pap: No Last mammogram: never Sexually active: Yes Pain with intercourse: Yes Postcoital bleeding: No Obstetric History T3 L3 SAB0 TAB0 Ectopic0 Multiple0 Live Births3 PAST MEDICAL HISTORY Diagnosis Date - Anemia - Factor V Leiden mutation (HCC) - FRACTURE ANKLE - IBS (irritable bowel syndrome) - Lactose intolerance - Thyromegaly 02/03/2016 PAST SURGICAL HISTORY Procedure Laterality Date - ORAL SURGERY PROCEDURE Warren Teeth - PAST SURGICAL HISTORY OF RIGHT ANKLE FAMILY HISTORY Problem Relation Age of Onset - Alcohol/Drug Maternal Grandfather - Alzheimer's Disease Other MGGM - Diabetes Maternal Grandfather - Heart Paternal Grandfather - Hypertension Mother - Lipids Mother - Seizures Father DUE TO ACCIDENT - Blood Disease Father FACTOR V LEIDEN - Blood Disease Brother FACTOR V LEIDEN - Aneurysm Paternal Grandfather BRAIN SOCIAL HISTORY Social History Substance Use Topics - Smoking status: Never Smoker - Smokeless tobacco: Never Used - Alcohol use No REVIEW OF SYSTEMS Abdomen: No abdominal pain, nausea, vomiting, diarrhea, or constipation. No bloating, early satiety, indigestion, or increased flatulenc e. Bladder: No dysuria, gross hematuria, urinary frequenc y, urinary urgency, or incontinence. Breast: No breast lumps, nipple d/c, overlying skin ch anges, redness or skin retraction. Allergies and current medication updated:Yes EXAM: Ht 5' 3.25 (1.61m) Wt 119 lb 6.4 oz (54.2kg) LMP 06/18/2018 BMI 20.97 kg/(m2). GENERAL: pleasant, female in no apparent distress HEENT: Normocephalic, atraumatic, mucus membranes moist and no lesions NECK: Supple, full range of motion, no adenopathy and thyroi d normal DERMATOLOGY: Normal, without lesions, non-icteric and non-hi rsute BREAST: soft, non-tender, symmetric, no dominant mass, normal nipple-areolar complex, no lymphadenopathy and no nipple discharge CHEST: Normal inspiratory effort ABDOMEN: soft, non-tender and no masses PELVIC: external genitalia normal, serina l Bartholin's glands, urethra, [place]'s glands, no vulvar lesions, no cervical lesions, good vaginal support, physiologic discharge present, normal appearing perineal bod y and perianal region, well estrogenized BIMANUAL: uterus normal size, shape and consistency, no adne xal masses, non-tender and no cervical motion tenderness RECTOVAGINAL: deferred. NEURO: alert and oriented x3,exam grossly non-focal EXTREMITIES: normal ASSESSMENT/PLAN: 1) Health maintenance: Pap done with HPV. Nutrition, exercise and routine health maintenance exams rev iewed. Calcium/Vitamin D supplementation information provided. 2) Contraception: vasectomy. Contraceptive options reviewe d and information provided. 3) STD screening: Declined STD check. 4) Follow up one year or sooner as needed Haleigh Green APRN.CYNDIE Wang 07/22/2018 10:20 AM Signed Pap logged and normal pap letter sent to patient. Breann olivarez Referring Provider: SELF [200] Allergies As of Date: 07/13/2018 Noted Allergy Reaction CIPROFLOXACIN 12/31/2011 1 - Mental Status Change 10 - Anaphylaxis Comments: Quentin like she was having an anxiety attack. Swelli ng in throat. Difficulty breathing. Took benadryl and symptoms subsided. GLUTEN 04/05/2018 8 - GI Upset Date Reviewed: 07/13/2018 [facility] Norma - Fully Assessed Reason for Visit: Yearly Exam [187] Primary Visit Diagnosis:Encounter for gynecological examinat ion (general) (routine) without abnormal findings [Z01.419] Other Visit Diagnoses:Screening for cervical cancer [Z12.4] Encounter for screening for human papillomavirus (HPV) [Z11.51] Order(s):PAP FLUID CERVICAL SCREENING [[id number]] Order #: [id number]. #:[id number] HPV W/GENOTYPE [SQHPVHRR] Order #: [id number]. #:[id number] Prescriptions as of 07/13/2018 Sig: BUSPIRONE 15 MG TABLET Take 15 mg by mouth as needed. PANTOPRAZOLE ORAL Take 40 mg by mouth. ZANTAC ORAL Take 1 tablet by mouth as nee* Problem List As Of Date 07/13/2018 Noted Resolved Supervision of normal first [Z34.00] INVALID FOR*0 03/10/2011 Anemia, unspecified [D64.9] INVALID FOR*05/30/2014 Leukocytosis [D72.829] INVALID FOR*05/30/2014 Thrombophilia (HCC) [D68.59] INVALID FOR*05/30/2014 Ovarian cyst [N83.209] INVALID FOR*05/30/2014 Pelvic pain in female [R10.2] INVALID FOR*05/30/2014 Candidiasis of vulva and vagina [B37.3] INVALID FOR*11/24/19 14 Ulceration of vulva, unspecified [N76.6] INVALID FOR* 012 with care elsewhere [Z34.90] INVALID FOR* 11/06/2014 More... Heterozygous factor V Leiden mutation (HCC) [D6*INVALID FOR* More... History of anxiety [Z86.59] INVALID FOR* More... History of hemorrhoids [Z87.19] INVALID FOR*05/30/2014 Constipation in [O99.619, K59.00] INVALID FOR*07/01/2014 More... Nausea and vomiting in [O21.9] INVALID FOR* 014 More... Mother positive for group B Streptococcus colon*INVALID FOR* 11/06/2014 More... Anemia complicating [O99.019] INVALID FOR*04/02/20 16 High-risk [O09.90] INVALID FOR*11/06/2014 More... Encounter for supervision of normal i*INVALID FOR* 04/02/2016 Group B Streptococcus carrier, antepartum [O99.*INVALID FOR* 04/02/2016 More... Anemia affecting [O99.019] INVALID FOR*04/02/2016 More... Iron deficiency anemia [D50.9] INVALID FOR*04/02/2016 Iron malabsorption [K90.9] INVALID FOR*04/02/2016 Encounter for supervision of normal first pregn*INVALID FOR* 04/02/2016 Thyromegaly [E01.0] INVALID FOR* Medications Discontinued During This Encounter metroNIDAZOLE (FLAGYL) 500 mg tablet 14 t* 0 05/14/2016 07/13/20 18 Route: ORAL Sig: Take 1 tablet by mouth twice daily. FOR 7 DAYS. Patient not taking: Reported on 04/05/2018 Disc: Reason for discontinue is not on file. mometasone (ELOCON) 0.1 % cream 45 g 0 11/28/2016 07/13/2018 Route: TOPICAL Sig: Apply 1 application to affected area once daily. Patient not taking: Reported on 04/05/2018 Disc: Reason for discontinue is not on file. levonorgestrel (MIRENA) 20 mcg/24 hr* 04/02/2016 07/13/2018 Class: Historical Med Route: INTRAUTERINE Si Each by INTRAUTERINE route continuous. Disc: Reason for discontinue is not on file. Disposition: Return in 1 year (on 07/13/2019) for Annual Exam. Follow-up and Disposition History Recorded Letter Text Haleigh Green CNP [facility] [address] [place] [phone] Jazmine Arriaga [address] [address] [facility] [address] 07/22/2018 [facility]: [id number] Dear Jazmine, We are pleased to inform you that your recent Pap Test was w ithin normal limits. Because Pap tests are so effective in the early detection of cervical cancer, you are encouraged to continue having the test at regular in [facility]. You will be due for a 1 year Gynecological Exam after this date 07/14/2019. If you have any questions regarding the above in formation, do not hesitate to call our office at between the hours of 8:00 a.m. and 5:00 p.m. Sincerely, Haleigh Green CNP Encounter Status:Closed by HALEIGH GREEN on 07/13/18 crp Ordered By: Syst em Nuclear Control Room Operator on 2018-01-12 CRP High sensitivity < 2.90 0.0-3.0 mg/L Normal 8 [facility] ([id number]) Comment: C-Reactive Protein (CRP) pro kali useful information for thediagnosis, therapy and monitoring of in flammatory processesand associated diseases. For the evaluation of Relative R iskfor Cardiovascular Disease, a High Sensitivity CRP (HSCRP)shoul d be ordered. [facility] [id number] [facility]. [place], [place], [phone] celiac disease profile Ordered By: Welfare Case Worker on 2018-01-12 240 87-352 mg/dL Normal 01-12-2018 [facility] ([id number]) Comment: Performed at: - [facility] [place] [id number] [place], [place] [id number] Director: Jones Moses PhD, Phone: [phone] [facility] (refer to report for specific site)refer to report for address and phone number 3 0-3 U/mL Normal 01-12-2018 [facility] ([id number]) Comment: Negative 0 - 3 Weak Positive 4 - 10 Positive >10 Tissue Transglutaminase (tTG) has been identified as the endomysial antigen. Studies have demonstr- ated that endomysial IgA ant ibodies have over 99% specificity for gluten sensitive enteropathy. [facility] (refer to report for specific site)refer to report for address and phone number Positive Abnormal 01-12-2018 [facility] ([id number]) Comment: [facility] (refer to report for specific site)refer to report for address and phone number immunohistochemistry Ordered By: Welfare Case Worker on 2017-12-17 IMMUNOHISTOCHEMISTRY See Note Normal 8 [facility] ([id number]) Comment: Patient: JAZMINE ARRIAGA DO B: 1985 (32/F) Acct Num: [id number] Phys: Hector HENRY,[facility] N um: [id number] Loc: EN Specimen: [id number] Received: 12/20/17 - 1139 Sp ec Type: IMMUNO TISSUES TISSUES: B. Pylorus SPECIMEN INFORMATION: Tissue Source: B Prepyloric polyp Clinical Info: Nausea/vomiting Specimen Num catherine: [id number] CPT code: 09314 METHODOLOGY: Deparaffinized sections of p refer/formalin-fixed tissue or PAP/DQ stained slides are incubated with mo noclonal/polyclonal antibodies/oligonucleotide probes. Localization is made via biotin free immunoperoxidase method. Appropriate controls are per formed and reacted as expected. Results on target cell population are i ndicated in the following table: RESULTS: ANTIBODY / CLONE RESULT Bloc k B H Pylori (polyclonal) negative These tests were developed and their per formance characteristics determined by [facility] Labor[facility]. They may not have been cleared or approved by the U.S. Food and Drug Admin istration. The FDA has determined that such clearance or approval is not necessary. INTERPRETATION: B. Prepyloric polyp, biopsy: Negative for Helicob acter pylori organisms. AM:harmony 12/20/17 PHYSICIAN AND INSTITUTION [address] [address] Signed Cesario Bindu 12/20/17 [facility] [id number] [place] [address]. [place], [place], [phone] culture, r/o strep a Ordered By: Welfare Case Worker on 2017-12-13 See Note Normal 12-13-2017 [facility] ([id number]) Comment: SHANTAL CultureNo Streptococcus group A isolated. * This cultures intended use is to screen for Beta Strept ococcus A only. All other pathogens and potential pathogens will not be screened for or reported. If a complete workup of all potential path ogens is indicated an order for a routine throat culture is required. [facility] [id number] [place], [address] office visit: uc: sinus on 2017-09-28 Documentation of Done Invalid 09-28-2017 - [facility] Now current medications Interpretation Code 09-28-2017 Clinic (procedure) ([id number]) Tobacco smoking Never Invalid 09-28-2017 - W Now status NHIS Interpretation Code 09-28-20 17 Clinic ([id number]) Tobacco use CPHS Never smoker Invalid 09-28-2017 - [facility] Now Interpretation Code 09-28-2017 Clinic ([id number]) potassium serum (20321) Ordered By: Welfare Case Worker on 2017-07-26 Potassium molar conc 3.7 3.5-5.2 mmol/L Normal 7 [facility] ( [id number]) Comment: PATIENT NOT FASTINGPERFORMED BY: CB [facility] [id number] [facility] [id number] magnesium (08468) Or dered By: Welfare Case Worker on 2017-07-26 Magnesium mass conc 2.1 1.6-2.3 mg/dL Normal 07-26-2017 [facility] Internal Medicine ( 64028) Comment: PATIENT NOT FASTINGPERFORMED BY: [facility] [id number] [facility] [id number] miscellaneous lab procedure Ordered By: Welfare Case Worker on 2017-07-09 MISC LAB TEST Normal 07-09-2017 [facility] Internal Medicine (70607) Comment: TEST RESULT UNITS REFERENCE INTERVALH pylori, IgM, IgG, IgA AbH. pylori, IgG Abs 1.0 High U/mL 0.0 - 0.8* *Results verified by repeat testing Negative <0.9 Indeterminate 0.9 - 1.0 Positive >1.0H. pylori, IgA Abs <9.0 units 0.0 - 8.9 Negative <9.0 Equivoca l 9.0 - 11.0 Positive >11.0H pylori, IgM Abs <9.0 units 0.0 - 8.9 Negativ e <9.0 Equivocal 9.0 - 11.0 Positive >11.0Disclaimer:This test wa s developed and its performance characteristicsdetermined by [facility]. It has not been cleared or approvedby the Food and Drug Administration. TESTING PERFORMED AT [facility] . ORIGINAL REPORT ON FILE IN LAB CONTAINS ADDITIONAL TEST SITE INFORMATION. Comments: [id number] HELICOBAC TER PYLORI AB IGA IGG IGM RFTest(s) Ordered: [id number] HELICOBACTER PYLORI AB IGA IGG IGM [facility] [address] [place], [id number] lipase Ordered By: S ystem Nuclear Control Room Operator on 2017-07-09 Lipase enzyme act/vol 374 73-393 U/L Normal 07-09-20 17 [facility] ( 52685) Comment: Comments: [id number] HELICOBAC TER PYLORI AB IGA IGG IGM [facility] [id number] [place], [id number] erythrocyte sed rate Ordered By: Welfare Case Worker on 2017-07-09 1 0-20 mm/h Normal 07-09-2017 [facility] Internal Medicine (15079) Comment: [facility] [address] [place], [address] comprehensive metabolic profil Ordered By: Welfare Case Worker on 2017-07-09 Comprehensive metabolic 17 12-78 U/L Normal 2016 [facility] Internal 2000 panel Medicine (18840) Comment: Comments: [id number] HELICOBAC TER PYLORI AB IGA IGG IGM [facility] [id number] [place], [id number] Comprehensive metabolic 4.2 3.4-5.0 g/dL Normal 2016 [facility] Internal 2000 panel Medicine (93129) Comment: Comments: [id number] HELICOBAC TER PYLORI AB IGA IGG IGM [facility] [address] [place], [place], [address] Comprehensive metabolic 55 45-117 U/L Normal 2016 [facility] Internal 2000 panel Medicine (59091) Comment: Comments: [id number] HELICOBAC TER PYLORI AB IGA IGG IGM [facility] [address] [place], [place], [phone] Comprehensive metabolic 104 mL/min Normal 2016 [facility] Internal 2000 panel Medicine (81560) Comment: Non- GFR Taty c Comments: [id number] HELICOBAC TER PYLORI AB IGA IGG IGM [facility] [address] [place], [place], [address] Comprehensive metabolic 7.8 6.4-8.2 g/dL Normal 2016 [facility] Internal 2000 panel Medicine (99985) Comment: Comments: [id number] HELICOBAC TER PYLORI AB IGA IGG IGM [facility] [address] [place], [address] Comprehensive metabolic 0.50 0.20-1.00 mg/dL Normal 2016 [facility] Internal 2000 panel Medicine (34732) Comment: Comments: [id number] HELICOBAC TER PYLORI AB IGA IGG IGM [facility] [address] [place], [place], [phone] Comprehensive metabolic 3.6 2.3-3.5 g/dL Abnormal 2016 [facility] Internal 2000 panel Medicine (17896) Comment: Comments: [id number] HELICOBAC TER PYLORI AB IGA IGG IGM [facility] [address] [place], [address] Comprehensive metabolic 0.71 0.55-1.02 mg/dL Normal 2016 [facility] Internal 2000 panel Medicine (44962) Comment: The validity of the calculat ed GFR AND GFRAA in patients over70 years has not been determined. Clinica l correlation isessential. Comments: [id number] HELICOBAC TER PYLORI AB IGA IGG IGM [facility] [address] [place], [place], [phone] Comprehensive metabolic 1.2 0.9-2.4 {RATIO} Normal 2016 [facility] Internal 2000 panel Medicine (00293) Comment: Comments: [id number] HELICOBAC TER PYLORI AB IGA IGG IGM [facility] [address] [place], [place], [id number] Comprehensive metabolic 7 7-18 mg/dL Normal 2016 [facility] Internal 2000 panel Medicine (37862) Comment: Comments: [id number] HELICOBAC TER PYLORI AB IGA IGG IGM [facility] [address] [place], [address] Comprehensive metabolic 79 70-110 mg/dL Normal 2016 [facility] Internal 2000 panel Medicine (13462) Comment: Comments: [id number] HELICOBAC TER PYLORI AB IGA IGG IGM [facility] [address] [place], [address] Comprehensive metabolic 9.0 8.5-10.1 mg/dL Normal 2016 [facility] Internal 2000 panel Medicine (14817) Comment: Comments: [id number] HELICOBAC TER PYLORI AB IGA IGG IGM [facility] [address] [place], [address] Comprehensive metabolic 125 mL/min Normal 2016 [facility] Internal 2000 panel Medicine (70433) Comment: GFR Calc Comments: [id number] HELICOBAC TER PYLORI AB IGA IGG IGM [facility] [address] [place], [address] Comprehensive metabolic 2000 7 5-15 1 Normal 0 07-09-2017 [facility] Internal panel Medicine ( 90393) Comment: Comments: [id number] HELICOBAC TER PYLORI AB IGA IGG IGM [facility] [id number] [place], [address] Comprehensive metabolic 106 98-107 mmol/L Normal 2016 [facility] Internal 2000 panel Medicine (27352) Comment: Comments: [id number] HELICOBAC TER PYLORI AB IGA IGG IGM [facility] [address] [place], [address] Comprehensive metabolic 9.9 10-20 {RATIO} Abnormal 2016 [facility] Internal 2000 panel Medicine (12950) Comment: Comments: [id number] HELICOBAC TER PYLORI AB IGA IGG IGM [facility] [id number] [place], [address] Comprehensive metabolic 3.4 3.5-5.1 mmol/L Abnormal 2016 [facility] Internal 2000 panel Medicine (14151) Comment: Comments: [id number] HELICOBAC TER PYLORI AB IGA IGG IGM [facility] [address] [place], [address] Comprehensive metabolic 14 15-37 U/L Abnormal 2016 [facility] Internal 2000 panel Medicine (58289) Comment: Comments: [id number] HELICOBAC TER PYLORI AB IGA IGG IGM [facility] [address] [place], [address] Comprehensive metabolic 141 136-145 mmol/L Normal 2016 [facility] Internal 2000 panel Medicine (93916) Comment: Comments: [id number] HELICOBAC TER PYLORI AB IGA IGG IGM [facility] [address] [place], [address] Comprehensive metabolic 28.0 21.0-32.0 mmol/L Normal 2016 [facility] Internal 2000 panel Medicine (12436) Comment: Comments: [id number] HELICOBAC TER PYLORI AB IGA IGG IGM [facility] [id number] [place], [address] cbc w/diff, automated Ordered By: Welfare Case Worker on 2017-07-09 Absolute Neut 3.2 2.0-7.7 {X10_3/uL} Normal 07-09-2017 [facility] Internal Medicine ( 75033) Comment: [facility] [place], [place], [phone] Basophils/100 WBC (Bld) 0.9 0-1 % Normal 2016 [facility] Medicine (67825) Comment: [facility] [id number] [place], [place], [phone] Eosinophils/100 WBC (Bld) 2.1 0-5 % Normal [facility] (45287) Comment: [facility] [place], [place], [id number] Erythrocyte distribution 12.2 11.6-14.6 % Normal 07-09 [facility] Internal width Ratio (RBC) Mn juan daniel (34272) Comment: [facility] [place], [place], [address] Hematocrit Volume Fraction 41.0 37-47 % Normal [facility] Internal (Bld) Medicine ( 00330) Comment: [facility] [place], [place], [address] Hemoglobin mass conc 13.5 12.0-15.0 g/dL Normal 7 [facility] Internal (Bld) Medicine ( 56026) Comment: [facility] [place], [place], [id number] IM GRAN % 0.200 0.0-0.9 % Normal 07-09-2017 [facility] Internal Medicine (64129) Comment: IG% - Immature Granulocytes (promyelocytes, myelocytes andmetamyelocytes) > 1% indicates that a LEFT CAR FT is Present. [facility] [place], [place], [address] Lymphocytes #/vol 2.72 0.83-4.51 {X10_3/ul} Normal 07-09-2017 [facility] (Bld) Internal M edicine (73583) Comment: [facility] [place], [address] Lymphocytes/100 WBC (Bld) 41.7 19-41 % Abnormal [facility] ( 80610) Comment: [facility] [place], [address] MCH Entitic mass (RBC) 30.5 27.0-32.0 pg Normal 017 [facility] Medicine ( 30918) Comment: [place] [address] [place], [address] MCHC mass conc (RBC) 32.9 32-36 {g/gl} Normal 7 [facility] Medicine ( 15548) Comment: [place] [address] [place], [place], [address] MCV Entitic volume (RBC) 92.6 81-99 fL Normal 07-09 [facility] Medicine ( 96963) Comment: [place] [address] [place], [place], [address] Monocytes/100 WBC (Bld) 6.4 0-10 % Normal 2016 [facility] (17389) Comment: [place] [address] [place], [place], [address] Neutrophils/100 WBC (Bld) 48.7 47-70 % Normal [facility] ( 98877) Comment: [place] [address] [place], [place], [id number] Platelet mean volume 10.1 6.2-12.0 fL Normal 7 [facility] Internal Entitic volume (Bld) Medicine (69500) Comment: [place] [address] [place], [place], [address] Platelets #/vol (Bld) 419 150-450 K/mm3 Normal 07-09-20 17 [facility] ( 20417) Comment: [address] [place], [place], [address] RBC #/vol (Bld) 4.43 4.2-5.4 {M/mm3} Normal 07-09-2017 [facility] prehensive Internal Medicine ( 84354) Comment: [facility] [address] [place], [place], [address] RDW SD 40.7 35.1-43.9 fL Normal 07-09-2017 [facility] Internal Medicine (58630) Comment: [facility] [address] [place], [place], [address] WBC #/vol (Bld) 6.5 4.4-11.0 K/mm3 Normal 07-09-2017 [facility] prehensive Internal Medicine (84391) Comment: [facility] [address] [place], [place], [address] amylase Ordered By: Welfare Case Worker on 2017-07-09 Amylase enzyme act/vol 106 25-115 U/L Normal [facility] Comprehensive Internal Medicine ( 03240) Comment: Comments: [id number] HELICOBAC TER PYLORI AB IGA IGG IGM [facility] [address] [facility] [address] [place], [place], [address] tsh (29629) Ordered By: Welfare Case Worker on 2017-01-19 Thyrotropin Qn 0.703 0.450-4.500 {uIU/mL} Normal 01-19-2017 [facility] ( 95351) Comment: PATIENT NOT FASTINGPERFORMED BY: CB [facility] Neideh0724 [facility] [id number] cbc w/auto diff wbc (57070) Ordered By: Welfare Case Worker on 2017-01-19 Basophils #/vol 0.0 0.0-0.2 {x10E3/uL} Normal 01-19-2017 [facility] ( 56021) Comment: PATIENT NOT FASTINGPERFORMED BY: CB [facility] Aotxke2720 [facility] [id number] Basophils/100 WBC (Bld) 0 % Normal 2016 [facility] Medicine (81900) Comment: PATIENT NOT FASTINGPERFORMED BY: CB [facility] Oiaozh8[address]Dublin [place] [id number] Eosinophils #/vol 0.2 0.0-0.4 {x10E3/uL} Normal 01-19-2017 [facility] Internal (Bld) Medicine ( 92627) Comment: PATIENT NOT FASTINGPERFORMED BY: CB [facility] Voaqke0448 [address]Dublin [place] [id number] Eosinophils/100 WBC (Bld) 3 % Normal 01-06 [facility] Medicine (25703) Comment: PATIENT NOT FASTINGPERFORMED BY: CB [facility] Fkopfg2305 [address] [place] [id number] Erythrocyte distribution 12.8 12.3-15.4 % Normal 01-19 [facility] Internal width Ratio (RBC) Me dicine (72147) Comment: PATIENT NOT FASTINGPERFORMED BY: CB [facility] Bdibnw8094 [address] [place] [id number] Hematocrit Volume 41.7 34.0-46.6 % Normal 01-19-2017 C omprehensive Internal Fraction (Bld) Medic ine (96619) Comment: PATIENT NOT FASTINGPERFORMED BY: CB [facility] Ibrnsu0868 [address] [place] [id number] Hemoglobin mass conc 13.8 11.1-15.9 g/dL Normal 7 [facility] Internal (Bld) Medicine ( 94744) Comment: PATIENT NOT FASTINGPERFORMED BY: CB [facility] Swsuhu030[address] [place] [id number] Immature granulocytes 0.0 0.0-0.1 {x10E3/uL} Normal 017 [facility] Internal #/vol (Bld) Medicine (97349) Comment: PATIENT NOT FASTINGPERFORMED BY: CB [facility] Diveil8[address]Dublin [place] [id number] Immature granulocytes/100 WBC 0 % Normal 01-19-2017 [facility] Internal (Bld) Medicine ( 65819) Comment: PATIENT NOT FASTINGPERFORMED BY: CB [facility] Dzkfit5366 [address] [place] [id number] Lymphocytes #/vol 3.4 0.7-3.1 {x10E3/uL} Abnormal 01-19-2017 [facility] Internal (d) Medicine ( 27489) Comment: PATIENT NOT FASTINGPERFORMED BY: MIGUEL [address] [facility] [id number] Lymphocytes/100 WBC (Bld) 48 % Normal 01-06 [facility] Internal Medicine (20867) Comment: PATIENT NOT FASTINGPERFORMED BY: MIGUEL [address] [facility] [id number] MCH Entitic mass (RBC) 30.2 26.6-33.0 pg Normal 017 [facility] Medicine ( 93751) Comment: PATIENT NOT FASTINGPERFORMED BY: MIGUEL [address] [facility] [id number] MCHC mass conc (RBC) 33.1 31.5-35.7 g/dL Normal 7 [facility] Internal Medicine ( 38674) Comment: PATIENT NOT FASTINGPERFORMED BY: MIGUEL [address] [facility] [id number] MCV Entitic volume (RBC) 91 79-97 fL Normal 01-19 [facility] Internal Medicine ( 99052) Comment: PATIENT NOT FASTINGPERFORMED BY: MIGUEL [address] [facility] [id number] Monocytes #/vol 0.5 0.1-0.9 {x10E3/uL} Normal 01-19-2017 [facility] Internal (d) Medicine ( 90465) Comment: PATIENT NOT FASTINGPERFORMED BY: MIGUEL [address] [facility] [id number] Monocytes/100 WBC (Bld) 7 % Normal 2016 [facility] Internal Medicine (41813) Comment: PATIENT NOT FASTINGPERFORMED BY: MIGUEL [facility] Ufjwjz[address] [facility] [place] [id number] Neutrophils #/vol 3.0 1.4-7.0 {x10E3/uL} Normal 01-19-2017 [facility] Internal ([facility]) Medicine ( 56035) Comment: PATIENT NOT FASTINGPERFORMED BY: MIGUEL LabNissa CravenHliekd[address] [facility] [id number] Neutrophils/100 WBC (Bld) 42 % Normal 01-06 [facility] Internal Medicine (72730) Comment: PATIENT NOT FASTINGPERFORMED BY: CB [facility] [address]ef[address] [facility] [id number] Platelets #/vol 410 150-379 {x10E3/uL} Abnormal 01-19-2017 [facility] Internal (d) Medicine ( 28329) Comment: PATIENT NOT FASTINGPERFORMED BY: CB [facility] Mcftjb7299 [facility] [id number] RBC #/vol (Bld) 4.57 3.77-5.28 {x10E6/uL} Normal 01-19-2017 [facility] ( 05824) Comment: PATIENT NOT FASTINGPERFORMED BY: CB [facility] Qgqcjz5842 [facility] [id number] WBC #/vol (Bld) 7.2 3.4-10.8 {x10E3/uL} Normal 01-19-2017 [facility] ( 19806) Comment: PATIENT NOT FASTINGPERFORMED BY: CB [facility] Iivdsl2559 [facility] [id number] rapid flu (94853 x 2) Ordered By: Curly Rodriguez on 2017-01-11 FLUAV Ag IA Ql (Throat) negative Normal 2016 [facility] Internal Medicine ( 91359) amnisure rupture of membranes Ordered By: Welfare Case Worker on 2015-08-29 AMNISURE (ROM) Negative Normal 08-29-2015 [facility] Internal Medicine (34976) Comment: Amniotic fluid not present i ndicates No Rupture of FetalMembranes at time of specimen collection. [facility] L [address] [place], [place], [id number] rom Ordered By: Syst em Nuclear Control Room Operator on 2014-09-16 POSITIVE Abnormal 09-16-2014 [facility] Internal Medicine (08609) Comment: Amniotic fluid present indic ates rupture of Membranes.RESULTS CALLED TO Jeovanny GEE 09/16/14 13 41 Arnold Cortez.REPORT READ BACK BY Jeovanny GEE . culture, urine Order ed By: Welfare Case Worker on 2011-12-01 Bacteria identified Cx Nom See Note Normal [facility] Internal (U) Medicine ( 17164) Comment: COLONY COUNT 1000-10,000 ORG ANISM 1: MIXED GRAM POSITIVE ORGANISMS urinalysis, office (56445) Ordered By: Whitney Moreno on 2011-11-30 Bilirubin Ql (U) Negative Normal 11-30-2011 [facility] Internal Medicine ( 15124) Glucose Test strip mass Negative Normal 2011 [facility] Internal conc (U) Medicine ( 51014) Hemoglobin Ql (U) Negative Normal 11-30-2011 C omprehensive Internal Medicine ( 79461) Ketones Ql (U) Small Normal 11-30-2011 Comp rehensive Internal Medicine ( 66129) Leukocyte esterase Test Moderate Normal 2011 Comprehensive Internal strip Ql (U) Medicin e (71291) Nitrite Ql (U) Negative Normal 11-30-2011 Comp rehensive Internal Medicine ( 37732) pH (U) 6.0 1 Normal 11-30-2011 [facility] ( 20548) Protein Ql (U) Negative Normal 11-30-2011 Comp rehensive Internal Medicine ( 83251) Specific gravity Relative 1.025 1 Normal 11-09 [facility] Internal Density (U) Medicine (55655) Urobilinogen mass/time (24H Normal Normal [facility] Internal U) Medicine ( 23487) culture, urine Order ed By: Welfare Case Worker on 2011-03-10 Bacteria identified Culture exhibits no Normal 03-10-2011 [facility] Internal Cx Nom (U) growth. Medicine (01622) urinalysis, office (01016) Ordered By: Namrata Mcwilliams on 2011-03-09 Bilirubin Ql (U) Negative Normal 03-09-2011 [facility] Internal Medicine ( 35312) Glucose Test strip Negative Normal 03-09-2011 [facility] Internal mass conc (U) Medici ne (57622) Hemoglobin Ql (U) Non Hemolyzed Trace Normal [facility] Internal Medicine ( 52616) Ketones Ql (U) Negative Normal 03-09-2011 Comp rehensive Internal Medicine ( 34244) Leukocyte esterase Trace Normal 03-09-2011 [facility] Internal Test strip Ql (U) Me dicine (59821) Nitrite Ql (U) Negative Normal 03-09-2011 Comp rehensive Internal Medicine ( 75562) pH (U) 6.0 1 Normal 03-09-2011 [facility] ( 35886) Protein Ql (U) Negative Normal 03-09-2011 Comp rehensive Internal Medicine ( 00800) Specific gravity 1.020 1 Normal 03-09-2011 [facility] Internal Relative Density (U) Medicine (63288) Urobilinogen mass/time Normal Normal 011 [facility] Internal (24H U) Medicine ( 88227) tsh Ordered By: Syst em Nuclear Control Room Operator on 2010-12-04 Thyrotropin Qn 1.12 0.358-3.74 {uIU/mL} Normal 12-04-2010 Com prehensive Internal Medicine ( 35069) rapid flu (24791 x 2) Ordered By: Kiersten Mccormick on 2010-02-14 FLUAV Ag IA Ql (Throat) negative Normal 2009 [facility] ( 75478) [facility] Ordere d By: Welfare Case Worker on 2010-02-14 . Normal 02-14-2010 [facility] Internal Medicine (02391) Comment: Influenza A, H1N1, RT PCRTyp e Influenza A by PCR Negative NegativeSubtype Novel H1N1 by PCR Negative N egative Viral Culture, Rapid, Influe nzaNegative:No Influenza A or B detected. TESTING PERFORMED AT [facility]. ORIGIN AL REPORT ONFILE IN LAB CONTAINS ADDITIONAL TEST SITE INFORMATION. blood glucose , office (16282) Ordered By: Kiersten Mccormick on 2010-01-24 Glucose Glucometer molar 119 1 Normal 01-24 [facility] Internal Medicine conc (dC) (59456) hepatobiliary imaging Ordered By: Welfare Case Worker on 2009-07-17 See Note Normal 07-17-2009 [facility] Internal Medicine (54437) Comment: Exam Number: [id number] HEPAT OBILIARY SCAN INDICATIONRight upper quadrant pain. The patient was inject ed with 5.4 mCi of Choletec. During theexamination 1.2 mcg of Ch olecystokinin was injected. An ejectionfraction is calculated. The scans dem onstrate prompt activity in theliver, the bile ducts and the gallbladder. T he ejection fraction iscalculated over 30 minutes. The ejection fracti on is calculated to be95%. On the last scans there is demonstrated to be a minimal amountof activity in the gallbladder and the rest of the activity is in the GI tract. We see a small amount of activity in the stomach. IMP RESSIONEssentially normal hepatobiliary scan with an ejection fraction of 95%. We do note slight reflux of activity into the stomach. Reported By: OREN STEPHENSON M.D. gallbladder Ordered By: Welfare Case Worker on 2009-07-09 See Note Normal 07-09-2009 [facility] Internal [facility] (30659) Comment: Exam Number: [id number] CLINI TATY:Right upper quadrant pain. LIMITED ABDOMINAL ULTRASOUND COMPARISON:None. FINDINGS: Images and technologist worksheet are submitted for interpretation . The examination was limited to the right upper quadrant. Normal liver size, contour and echogenicity without mass or other lesion. Normal portal venous flow. Normal gallbladder size and contour, with no wall thickening, filling defects or pericholecystic fluid. Normal caliber of the common bile duct, mahin suring 2.4 mm. Normal intrahepatic ducts with no intrahepatic biliary ductal dilatation. Normal pancreas without focal or diffuse enlargement, and the re are no cysts or calcifications. Normal visualized pancreatic duct. Normal right kidney size, contour, and echogenicity, measuring 8.3 cm in length. Normal right renal cortex with no masses or cysts. Normal intr arenal collecting system with no renal calculi or hydronephrosis. IMPRESSIO N:Normal right upper quadrant ultrasound. Reported By: GALE SWARTZ M.D. Vital Signs Vital Sign Description Value / Unit Date Location The following section is limited to 5 en tries per type and includes entries from the following time range: 20171112 - [id number] 4. BMI (Body Mass Index) 20.06 kg/m2 10-11-2018 [facility] Internal [facility] (64808) BMI (Body Mass Index) 20.42 kg/m2 05-02-2018 [facility] (53587) BMI (Body Mass Index) 19.68 kg/m2 02-14-2018 [facility] (62209) BMI (Body Mass Index) 19.53 kg/m2 12-30-2017 [facility] (36921) BMI (Body Mass Index) 19.13 kg/m2 11-12-2017 [facility] (76469) Body Temperature 99.1 [degF] 10-11-2018 [facility] I nternal Medicine (14525) Body Temperature 97.9 [degF] 09-28-2017 - 09-28-2017 [facility] (08400) Body Temperature 97.9 [degF] 07-09-2017 [facility] I nternal Medicine (09512) Body Temperature 98.8 [degF] 01-11-2017 [facility] I nternal Medicine (59590) Body Temperature 97.3 [degF] 10-24-2014 [facility] I nternal Medicine (91944) BP Diastolic 60 mm[Hg] 10-11-2018 [facility] In ternal Medicine (32685) BP Diastolic 68 mm[Hg] 05-02-2018 [facility] In ternal Medicine (69678) BP Diastolic 60 mm[Hg] 02-14-2018 [facility] In ternal Medicine (51075) BP Diastolic 68 mm[Hg] 12-30-2017 [facility] In ternal Medicine (60692) BP Diastolic 60 mm[Hg] 11-12-2017 [facility] In ternal Medicine (65687) BP Systolic 82 mm[Hg] 10-11-2018 [facility] In ternal Medicine (46428) BP Systolic 110 mm[Hg] 05-02-2018 [facility] In ternal Medicine (95241) BP Systolic 102 mm[Hg] 02-14-2018 [facility] In ternal Medicine (80098) BP Systolic 98 mm[Hg] 12-30-2017 Comprehensive In [facility] (88804) BP Systolic 102 mm[Hg] 11-12-2017 [facility] (94656) BSA (Body Surface Area) 1.52 m2 10-11-2018 Comprehe nsive [facility] Medicine (05400) BSA (Body Surface Area) 1.53 m2 05-02-2018 Compre[facility] (17122) BSA (Body Surface Area) 1.51 m2 02-14-2018 Compre[facility] (84878) BSA (Body Surface Area) 1.5 m2 12-30-2017 Compre[facility] (36449) BSA (Body Surface Area) 1.49 m2 11-12-2017 Comprehe ns[facility] (21659) Head Circumference 0 cm 07-04-2009 [facility] (46109) Head Circumference 0 cm 06-06-2009 [facility] (64284) Height 160.02 cm 10-11-2018 [facility] (24771) Height 160.02 cm 05-02-2018 [facility] (57443) Height 160.02 cm 02-14-2018 [facility] (58133) Height 160.02 cm 12-30-2017 [facility] (78293) Height 160.02 cm 11-12-2017 [facility] (60061) Pulse (Heart Rate) 74 /min 10-11-2018 [facility] (72782) Pulse (Heart Rate) 65 /min 05-02-2018 [facility] (68002) Pulse (Heart Rate) 69 /min 02-14-2018 [facility] (92032) Pulse (Heart Rate) 66 /min 12-30-2017 [facility] (47556) Pulse (Heart Rate) 70 /min 11-12-2017 [facility] (01443) Pulse Oximetry 98 % 10-11-2018 [facility] (43046) Pulse Oximetry 98 % 05-02-2018 [facility] (57515) Pulse Oximetry 99 % 02-14-2018 [facility] (92400) Pulse Oximetry 98 % 12-30-2017 [facility] (77376) Pulse Oximetry 99 % 11-12-2017 [facility] (50881) Respiratory Rate 16 /min 10-11-2018 [facility] (60617) Respiratory Rate 18 /min 05-02-2018 [facility] (46107) Respiratory Rate 18 /min 02-14-2018 [facility] (48911) Respiratory Rate 18 /min 12-30-2017 [facility] (34695) Respiratory Rate 18 /min 11-12-2017 [facility] (54671) Weight 51.37 kg 10-11-2018 [facility] (52804) Weight 52.28 kg 05-02-2018 [facility] (07992) Weight 50.41 kg 02-14-2018 [facility] (64888) Weight 50.01 kg 12-30-2017 [facility] (79709) Weight 48.99 kg 11-12-2017 [facility] (05238) Encounters Date Type Reason Provider Location 12-30-2010 - Annotation/Addendu Unspecified Comprehen [facility] 12-30-2010 m Diagnosis [facility] 06-07-2009 - Historical Summary Comprehen [facility] 06-07-2009 [facility] 05-02-2018 - Office outpatient Comprehens charlie 05-02-2018 visit 10 minutes [facility] 12-09-2016 - Office outpatient Comprehens charlie 12-09-2016 visit 10 minutes [facility] 12-30-2017 - Office outpatient Comprehens charlie 12-30-2017 visit 15 minutes [facility] 08-20-2017 - Office outpatient Comprehens charlie 08-20-2017 visit 15 minutes [facility] 07-09-2017 - Office outpatient Comprehens charlie 07-09-2017 visit 15 minutes [facility] 01-11-2017 - Office outpatient Comprehens charlie 01-11-2017 visit 15 minutes [facility] 10-24-2014 - Office outpatient Comprehens charlie 10-24-2014 visit 15 minutes [facility] 06-29-2014 - Office outpatient Comprehens charlie 06-29-2014 visit 15 minutes [facility] 11-07-2013 - Office outpatient Comprehens charlie 11-07-2013 visit 15 minutes [facility] 12-29-2010 - Office outpatient Comprehens charlie 12-29-2010 visit 15 minutes [facility] 10-11-2018 - Office outpatient Comprehens charlie 10-11-2018 visit 25 minutes [facility] 11-12-2017 - Office outpatient Comprehens charlie 11-12-2017 visit 25 minutes [facility] 01-19-2017 - Office outpatient Comprehens charlie 01-19-2017 visit 25 minutes [facility] 02-14-2018 - Office outpatient Comprehens charlie 02-14-2018 visit 5 minutes Internal Med icine 12-02-2018 - Patient encounter KEYONNA VALDEZ Facility: B 12-03-2018 procedure MYAH AGEE 11-15-2018 Patient encounter Keyonna Valdez Facility: [id number] procedure Myah Hageron 11-02-2018 Patient encounter Rosalee Suh Facility:U procedure Myah Agee 10-26-2018 Patient encounter Keyonna Valdez Facility: [id number] procedure Myah Glasgow Anuel 03-21-2013 - Patient encounter Comprehens charlie 03-21-2013 procedure Internal [facility] ne 05-06-2012 - Patient encounter Hemorrhoids Comprehens charlie 05-06-2012 procedure [facility] 11-30-2011 - Patient encounter Comprehens charlie 11-30-2011 procedure [facility] 10-23-2011 - Patient encounter Comprehens charlie 10-23-2011 procedure [facility] 07-29-2011 - Patient encounter Comprehens charlie 07-29-2011 procedure [facility] ne 03-09-2011 - Patient encounter Comprehens charlie 03-09-2011 procedure [facility] 01-13-2011 - Patient encounter Comprehens charlie 01-13-2011 procedure [facility] 12-04-2010 - Patient encounter Comprehens charlie 12-04-2010 procedure Internal [facility] ne 10-09-2010 - Patient encounter Comprehens charlie 10-09-2010 procedure [facility] 03-14-2010 - Patient encounter Comprehens charlie 03-16-2010 procedure [facility] 02-14-2010 - Patient encounter Comprehens charlie 02-14-2010 procedure [facility] 01-24-2010 - Patient encounter Headache; including Com prehensive 01-24-2010 procedure migraine [facility] 07-04-2009 - Patient encounter Comprehens charlie 07-05-2009 procedure [facility] 06-06-2009 - Patient encounter Comprehens charlie 06-06-2009 procedure [facility] 10-11-2018 - Phone Encounter Anxiety Comprehensiv e 10-11-2018 Internal Medic[facility] ne 07-21-2017 - Phone Encounter Nausea Comprehensiv e 07-21-2017 Internal Medici ne 07-16-2017 - Phone Encounter Cough Comprehensiv e 07-16-2017 Internal Medici ne 07-15-2017 - Phone Encounter Acute generalized Compreh ensive 07-15-2017 abdominal pain Internal [facility] cine 07-14-2017 - Phone Encounter Acute generalized Compreh ensive 07-14-2017 abdominal pain Internal [facility] cine 07-13-2017 - Phone Encounter Hypokalemia Comprehensiv e 07-13-2017 Internal Medici ne 12-01-2011 - Phone Encounter Comprehensiv e 12-01-2011 Internal Medici ne 04-04-2013 - Refill Request Aneta infection Comprehe nsive 04-04-2013 (112.9) Internal Medici ne Procedures Procedure Name Date Provider Location Small Bowel Series Only 01-27-2018 - Renetta M Bonezzi Comprehe nsive Internal 01-28-2018 Medicine ([id number]) Esophagogastroduodenoscopy 12-17-2017 - Compr ehensive Internal 12-17-2017 Medicine (19542) Comment: Patient: JAZMINE ARRIAGA DO B: 1985 (32/F) Acct Num: [id number] Phys: Hector HENRY,[facility] N um: [id number] Loc: EN Specimen: [id number] Received: 12/17/17 - 1111 Sp ec Type: EGD BIOPSY TISSUES TISSUES: A. Duodenum, NOS B. Pylorus C. Esophageal mucous membrane D. Esophageal mucous membrane COMMENT B. The resu lts of immunohistochemistry for Helicobacter pylori will be reportedsepar penelope ([id number]). C. Glandular epithelium is not present. GROSS DESCRIPTION A - Received in fixative is one container labeled with the patient's name and designated duodenal biopsy. The specimen consists of one irregular fr agment of light quinonez soft tissue that measures 0.3 x 0.2 x 0.1 cm. The spec imen is totally submitted in one cassette. B - Received in fixative is one container labeled with the patient's name and designated prepyloric polyp . The specimen consists of two irregular fragmentsof light quinonez soft t issue that in aggregate measure 0.6 x 0.2 x 0.1 cm. The specimen is totally submitted in one cassette. C - Received in fixative is one container la beled with the patient's name and designated distal esophageal biopsy. The specimen consists of one irregular fragment of light quinonez soft tissue margaret t measures 0.3 x 0.3 x 0.1 cm. The specimen is totally submitted in one luis f sette. D - Received in fixative is one container labeled with the patient's n yobani and designated esophageal biopsy. The specimen consists of one irr egular fragmentof light quinonez soft tissue that measures 0.3 x 0.3 x 0.1 cm. The specimen is totally submitted in one cassette. / AM:harmony 12/17/17 TC: 3 CPT: 33411 x4 HEADER OPERATION: EGD PRE-OP DIAGNOSIS: Nausea / vomiting TISSUE SUBMITTED: A Duodenal biopsy, B Prepyloric polyp, C Distal e sophageal biopsy D Mid esophageal biopsy MICROSCOPIC DESCRIPTION Slid es are reviewed. MICROSCOPIC DIAGNOSIS A. Duodenum, biopsy: No patholo gic diagnosis. B. Prepyloric polyp, biopsy: Polypoid gastric mucosa with chronic gastritis, moderate. C. Distal esophagus, biopsy: Consisten t with changes of reflux. D. Mid esophagus, biopsy: Fragments of benign squamous epithelium. AM:harmony 12/20/17 Signed Cesario [facility] 12/20/17 [facility] [id number] [facility]. [place], [place], [address] Operative Report 12-17-2017 - Comprehensive I nternal 12-17-2017 Medicine ([id number]) Urgent Care Visit Report 12-13-2017 - Compreh ensive Internal 12-13-2017 Medicine (52876) Surgery Visit Report 11-25-2017 - Comprehensi ve Internal 11-25-2017 Medicine (79815) Hepatobilliary Imaging 11-22-2017 - Myah Agee Comprehen sive Internal 11-23-2017 Medicine (50137) Hepatobilliary Imaging 08-16-2017 - Myah Anuel Comprehen sive Internal 08-16-2017 Medicine (00864) Gallbladder 07-15-2017 - Myah Agee [facility] In ternal 07-15-2017 Medicine (16640) tooth sx Ailyn Gravius [facility] (33632) Comment: 11/10/10 ttoth sx Ailyn Gravius [facility] (39182) Comment: 07/24 Plan of Treatment Plan Description Date Location Appointment Appointment 09-28-2017 - [facility] ( [id number]) 09-28-2017 [facility] 07-09-2017 Comprehe nsive Internal ANTIBODY PROFILE IgG, ANTIBODY PROFILE IgG, Medi cine (35021) IgM, IgA (41643) IgM, IgA (92498) Amylase (23961) Amylase (03633) 07-09-2017 [facility] (60190) Lipase (69727) Lipase (25535) 07-09-2017 [facility] (64335) Sed Rate Erythrocyte Sed Rate Erythrocyte 07-09-2017 Compre hensive Internal (23315) (63093) Medicine (30729) Metabolic Panel, Metabolic Panel, 07-09-2017 Comprehensive Internal Comprehensive (86907) Comprehensive (83718) Medi cine (92859) CBC (Auto) (06016) CBC (Auto) (57955) 07-09-2017 Comprehens charlie Internal Medicine (93878) URINE JULIENNE CULTURE (ERINN URINE JULIENNE CULTURE (ERINN 11-30-2011 Comprehensive Internal COL COUNT) (73571) COL COUNT) (29982) Medicine ( 17638) URINE JULIENNE CULTURE-ERINN URINE JULIENNE CULTURE-ERINN 03-09-2011 Co mprehensive Internal COL COUNT (90785) COL COUNT (50020) Medicine (44 691) TSH (75840) TSH (39774) 12-04-2010 [facility] (78740) OVA & PARASITE DIR SMEAR OVA & PARASITE DIR SMEAR 07-04-2009 Comprehensive Internal (55805) (79427) Medicine (64060) OCCULT BLOOD FECES OCCULT BLOOD FECES 07-04-2009 Comprehens charlie Internal SCREEN (85521) SCREEN (19947) Medicine (71921) LEUKOCYTE COUNT, FECAL LEUKOCYTE COUNT, FECAL 07-04-2009 Co mprehensive Internal (85816) (30032) Medicine (77560) C-DIFFICILE, STOOL C-DIFFICILE, STOOL 07-04-2009 Comprehens charlie Internal (55322) (31930) Medicine (98312) JULIENNE CULTURE-STOOL JULIENNE CULTURE-STOOL 07-04-2009 Comprehensiv e Internal (67261) (89730) Medicine (79609) no information [facility] ( [address]) no information [facility] (84473) no information [facility] (56347) no information [facility] (41693) no information [facility] (42434) no information [facility] (63206) no information [facility] (10096) no information [facility] (15933) no information [facility] (21002) no information [facility] (91962) no information [facility] (00624) no information [facility] (94259) no information [facility] (15929) no information [facility] (15330) no information [facility] (22043) no information [facility] (88028) Payers Payer Name Policy Number Location Prisiclla [id number] [facility] ([id number]) [id number] [facility] (60725) [id number] [facility] (07219) [id number] [facility] (42830) [id number] [facility] (49708) [id number] [facility] (22973) [id number] [facility] [place] ([address]) [facility] (21529) The following information is from the original human readable contentNo Payer Records FoundNo Payer Records FoundNo Payer Records Found Social History Type Social History Description Date Locat ion Never smoker [facility] (12956) 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 Comprehen cayla Internal Medicine (35330) Tobacco use: Never smoker. [facility] (99126) The following information is from the original human readable contentNo Social History Records FoundNo Social History Records FoundNo Social History Records FoundNo Social History Records FoundNo Social History Records FoundNo Social History Records FoundNo Social History Records Found Summary Purpose Family History No Family History Records Found Unknown Family Member Name Dates Details Breast Cancer Comments: Family Mem bers In General Status: Active Diabetes Mellitus Comments: Maternal G randfather Status: Active First Degree Relatives Comments: BLood d isorder, [place], DM, Heart/lung dx, HBP, high cholesterol Status: Active Heart Disease Comments: Paternal G randfather Status: Active Hypercholesterolemia Comments: Family Me mbers In General Status: Active Hypertension Comments: Mother Status: Active Unknown Family Member Name Dates Details Breast Cancer Comments: Family Mem bers In General Status: Active Diabetes Mellitus Comments: Maternal G randfather Status: Active First Degree Relatives Comments: BLood d isorder, [place], DM, Heart/lung dx, HBP, high cholesterol Status: Active Heart Disease Comments: Paternal G randfather Status: Active Hypercholesterolemia Comments: Family Me mbers In General Status: Active Hypertension Comments: Mother Status: Active Advance Directives No Advanced Directives Records FoundNo Advanced Directives Records FoundNo Advanced Directives Records FoundNo Advanced Directives Records Found Instructions Name Dates Details Anxiety : How to access health information online Indication: Anxiety Anxiety : How to access health information online - Detail Indication: Anxiety Anxiety : Patient Instructions Indication: Anxiety Non-smoker : How to access health information online Indication: Non-smoker Non-smoker : How to access health information online - Detai l Indication: Non-smoker Non-smoker : Patient Instructions Indication: Non-smoker Celiac disease : How to access health information online Indication: Celiac disease Celiac disease : How to access health information online - D etail Indication: Celiac disease Celiac disease : Patient Instructions Indication: Celiac disease BMI between 19-24,adult : How to access health information o nline Indication: BMI between 19-24,adult BMI between 19-24,adult : How to access health information o nline - Detail Indication: BMI between 19-24,adult BMI between 19-24,adult : Patient Instructions Indication: BMI between 19-24,adult Nausea : Patient Instructions Indication: Nausea Epigastric pain : How to access health information online Indication: Epigastric pain Epigastric pain : How to access health information online - Detail Indication: Epigastric pain Epigastric pain : Patient Instructions Indication: Epigastric pain Flu-like symptoms : How to access health information online Indication: Flu-like symptoms Flu-like symptoms : How to access health information online - Detail Indication: Flu-like symptoms Flu-like symptoms : Patient Instructions Indication: Flu-like symptoms Cough : How to access health information online Indication: Cough Cough : How to access health information online - Detail Indication: Cough Cough : Patient Instructions Indication: Cough Acute sinusitis : Patient Instructions Indication: Acute sinusitis Name Dates Details Anxiety : How to access health information online Indication: Anxiety Anxiety : How to access health information online - Detail Indication: Anxiety Anxiety : Patient Instructions Indication: Anxiety Non-smoker : How to access health information online Indication: Non-smoker Non-smoker : How to access health information online - Detai l Indication: Non-smoker Non-smoker : Patient Instructions Indication: Non-smoker Celiac disease : How to access health information online Indication: Celiac disease Celiac disease : How to access health information online - D etail Indication: Celiac disease Celiac disease : Patient Instructions Indication: Celiac disease BMI between 19-24,adult : How to access health information o nline Indication: BMI between 19-24,adult BMI between 19-24,adult : How to access health information o nline - Detail Indication: BMI between 19-24,adult BMI between 19-24,adult : Patient Instructions Indication: BMI between 19-24,adult Nausea : Patient Instructions Indication: Nausea Epigastric pain : How to access health information online Indication: Epigastric pain Epigastric pain : How to access health information online - Detail Indication: Epigastric pain Epigastric pain : Patient Instructions Indication: Epigastric pain Flu-like symptoms : How to access health information online Indication: Flu-like symptoms Flu-like symptoms : How to access health information online - Detail Indication: Flu-like symptoms Flu-like symptoms : Patient Instructions Indication: Flu-like symptoms Cough : How to access health information online Indication: Cough Cough : How to access health information online - Detail Indication: Cough Cough : Patient Instructions Indication: Cough Acute sinusitis : Patient Instructions Indication: Acute sinusitis Additional Source Comments FOR RECORDS PERTAINING TO PATIENTS WHO ARE OR HAVE BEEN ENROLLED IN A CHEMICAL DEPENDENCY/SUBSTANCE ABUSE PROGRAM, SOME INFORMATION MAY BE OMITTED. This clinical summary was aggregated from multiple sources. Caution should be exercised in using it in the provision of clinical care. This summary normalizes information from multiple sources, and as a consequence, information in this document may materially changethe coding, format and clinical context of patient data. In addition, data may be omittedin some cases. CLINICAL DECISIONS SHOULD BE BASED ON THE PRIMARY CLINICAL RECORDS. [facility] provides no warranty or guarantee of the accuracy or completeness of information in this document. UNRECOGNIZED CONTENT PROVIDED BELOW FOR UNRECOGNIZED SECTION INFORMATION SOURCE DATE CREATED AUTHOR AUTHOR'S ORGANIZATIO N 11/15/2018 [facility] DATE CREATED AUTHOR AUTHOR'S ORGANIZATIO N 11/16/2018 [facility] DATE CREATED AUTHOR AUTHOR'S ORGANIZATIO N 12/14/2018 [facility] [place] DATE CREATED AUTHOR AUTHOR'S ORGANIZATIO N 04/06/2019 [facility] eRynold schroeder
--- NOTE | 2019-05-13 17:00 | CT_ITS ---
STUDY: CT ABDOMEN AND PELVIS WITH CONTRAST REASON FOR EXAM: Female, 33 years old. Right groin pain RADIATION DOSAGE (If Supplied By Facility): CTDIvol = ( 7.65 ) mGy, DLP = ( 250.41 ) mGycm TECHNIQUE: Transaxial images were obtained from the dome of the diaphragm to the symphysis pubis without oral contrast. 100 IV Isovue 300 was administered. Sagittal and coronal images were reconstructed. Individualized dose optimization techniques were used for this CT. COMPARISON: None. FINDINGS: The visualized lung bases are unremarkable. The visualized portions of the heart are within normal limits. Normal liver. Contracted thick-walled gallbladder without calcified stones.. Normal spleen. Normal pancreas. Normal bilateral adrenal glands. Normal right kidney. Normal left kidney. Normal visualized stomach. Mild nonspecific ileus with diffuse fecal retention in the colon.. No evidence for acute appendicitis. Normal abdominal aorta. Normal inferior vena cava. Normal retroperitoneum. Incompletely distended mildly thick-walled bladder likely of no significance.. There is a left ovarian cyst measuring 3.46 x 2.96 cm and trace of fluid in the cul-de-sac possibly due to ovulation. Tiny bilateral inguinal nodes likely of no significance. Normal osseous structures. CT/Abdomen/Pelvis W IV Cont ONLY IMPRESSION: Contracted thick-walled gallbladder without calcified stones possibly physiologic. If concern for gallbladder disease ultrasound recommended Left ovarian cyst with trace of fluid in the cul-de-sac possibly due to ovulation. Electronically Signed: Bonifacio Torrez MD at 19:15 EDT , Service support ,
--- NOTE | 2019-05-13 17:11 | NURSING ---
[facility]
--- OUTSIDE RECORDS SUMMARY | 2019-05-13 17:13 | XMS RPT_ITS | CCD ---
:1985 External Reference #:[id number] Author Organization [facility] Care Team Providers Name Role Phone Johana Boss Unavailable Lintner Unavailable Unavailable Anuel Unavailable Unavailable Anuel Unavailable Unavailable Delmar, D Unavailable Unavailable Anuel Unavailable Unavailable Delmar, D Unavailable Unavailable Anuel Unavailable Unavailable Delmar, D Unavailable Unavailable Anuel Unavailable Unavailable Lintner Unavailable Unavailable Anuel Unavailable Unavailable Anuel Unavailable Unavailable LINTNER Attending Unavailable ANUEL Primary Care Unavailable Anuel Unavailable Rey Nieves Unavailable Jajaunjo Unavailable Messenger Unavailable Unavailable Gravius Unavailable Unavailable [id number] Unavailable Allergies Reported Allergen Reaction(s) Severity Date of Onset Location ciprofloxacin Critical, 09-28-2017 - [facility] Critical (49103) Ciprofloxacin Comprehensive Translations: [ Cipro Breaker Tender al Medicine *Fluoroquinolones] (78964) Comment: Jittery, chest tightness and in throat, felt weird all over Medications Medication Name Sig Date Prescriber Location Acetaminophen / TYLENOL CHEST 11-07-2013 Kiersten Barros nsive guaiFENesin CONGESTION, - Internal Medici ne 325-200MG (Oral 10-24-2014 () Tablet) 1 Tablet Tablet q8hrs prn for 0 days Quantity: 30 {Tablet} Refills: 0 Ordered: 24-Oct-2014 Kiersten Mccormick LPN Start : 07-Nov-2013 End : 24-Oct-2014 Inactive Acetaminophen / VICODIN, 5-500MG DAVID Jacobo hensive HYDROcodone (Oral Tablet) 1/2 Internal M edicine prn for 0 days (29007) Refills: 0 Ordered: 24-Jan-2010 DAVID Sidhu Inactive Albuterol ProAir HFA 108 01-11-2017 Arielle Rojas Comprehens charlie (90 Base) MCG/ACT - Internal M edicine Inhalation 07-09-2017 (74090) Aerosol Solution 2 (two) Puff Puff tid to qid for 0 days Quantity: 1 {Inhaler} Refills: 0 Ordered: 09-Jul-2017 Arielle Rojas Start : 11-Jan-2017 End : 09-Jul-2017 Inactive PROVENTIL HFA, 108 (90 03-14-2010 - Kiersten Mccormick Comprehen sive Internal Base)MCG/ACT (Inhalation 12-04-2010 Medicin e (49318) Aerosol Solution) 2 (two) Aerosol Soln qid prn for 0 days Quantity: 1 {Aerosol_Soln} Refills: 0 Ordered: 04-Dec-2010 Kiersten Mccormick LPN Start : 14-Mar-2010 End : 04-Dec-2010 Inactive Amoxicillin Prevpac 07-16-2017 - Kiersten Mccormick Comprehensiv e Miscellaneous 1 08-20-2017 Internal Med icine (one) Misc uad for 0 (64195) days Quantity: 1 {Packet} Refills: 0 Ordered: [...] Internal Me dicine Tablet bid for 0 (04538) days Quantity: 20 {Tablet} Refills: 0 Ordered: 09-Dec-2016 Kiersten Mccormick LPN Start : 24-Oct-2014 End : 09-Dec-2016 Inactive azithromycin ZITHROMAX Z-XIOMARA 09-28-2017 - Benson Rodríguez [facility] Now Cli bari 250 MG TABS Take 2 10-03-2017 [place] (94133) pills on day 1 then 1 pill days 2 through 5 AZITHROMYCIN [id number] Benson NAZARIO ZITHROMAX Z-XIOMARA 250 MG 09-28-2017 - 10-03-2017 Benson NAZARIO [facility] TABS Take 2 pills on day (14017) 1 then 1 pill days 2 through 5 AZITHROMYCIN [id number] Benson NAZARIO Zithromax Z-Xiomara 250 MG 01-11-2017 - 01-19-2017 Kiersten Mccormick [facility] Oral Tablet 1 (one) (70464) Tablet TAD for 0 days Quantity: 1 {Package} Refills: 0 Ordered: 19-Jan-2017 Kiersten Mccormick LPN Start : 11-Jan-2017 End : 19-Jan-2017 Inactive ZITHROMAX, 250MG (Oral 02-14-2010 - 12-04-2010 Kiersten Mccormick [facility] Tablet) 2 today Tablet (80154) then 1 qd for 0 days Quantity: 11 {Tablet} Refills: 0 Ordered: 04-Dec-2010 Kiersten Mccormick LPN Start : 14-Mar-2010 End : 04-Dec-2010 Inactive Comment: 2 tablets on day 1 then 1 ta b daily for 4 days then stop for 5 days then repeat Budesonide RHINOCORT AQUA, 12-29-2010 - Kiersten Mccormick Comprehen sive 32MCG/ACT (Nasal 01-13-2011 Internal Me dicine Suspension) 2 (two) (55206) Puff(s) once daily for 0 days Quantity: 1 {Suspension} Refills: 0 Ordered: 13-Jan-2011 Kiersten Mccormick LPN Start : 29-Dec-2010 End : 13-Jan-2011 Inactive busPIRone BusPIRone HCl 15 MG 10-11-2018 - Kiersten Mccormick [facility] Oral Tablet 1 Tablet 10-11-2018 Myah Agee (446 91) bid for 0 days Quantity: 60 {Tablet} Refills: 3 Ordered: 11-Oct-2018 Myah Agee DO, DO, Kathleen Start : 11-Oct-2018 End : 11-Oct-2018 Inactive BUSPIRONE HCL 10 MG TABS as directed 09-28-2017 [facility] (09251) BUSPIRONE HCL [id number] Benson NAZARIO Ciprofloxacin CIPRO, 500MG (Oral 11-30-2011 - Ernestina Barros nsive Tablet) 1 Tablet 12-01-2011 Stephan Internal Me dicine bid for 0 days (40741) Quantity: 20 {Tablet} Refills: 0 Ordered: 01-Dec-2011 Ernestina Rothman Start : 30-Nov-2011 End : 01-Dec-2011 Inactive CIPROFLOXACIN HCL, 500MG 03-09-2011 - Ernestina Rothman Compre hensive Internal (Oral Tablet) 1 Tablet 07-29-2011 Medicine (36960) bid for 0 days Quantity: 20 {Tablet} Refills: 0 Ordered: 29-Jul-2011 Ernestina Rothman Start : 09-Mar-2011 End : 29-Jul-2011 Inactive Citalopram Citalopram 10-11-2018 Kiersten De Pazensiv e Hydrobromide 10 MG Internal Medicine Oral Tablet 1/2 (10553) Tablet qd for 30 days Quantity: 15 {Tablet} Refills: 3 Ordered: 11-Oct-2018 Kiersten Mccormick LPN Start : 11-Oct-2018 Active Clarithromycin BIAXIN, 500MG (Oral 07-29-2011 - Kiersten Mccormick Com prehensive Tablet) 1 Tablet 10-23-2011 Internal Me dicine bid for 0 days (47012) Quantity: 28 {Tablet} Refills: 0 Ordered: 23-Oct-2011 Kiersten Mccormick LPN Start : 29-Jul-2011 End : 23-Oct-2011 Inactive Comments: with food Comment: with food Codeine / guaiFENesin Cheratussin AC 01-11-2017 - Kiersten Dominguez rehensive 100-10 MG/5ML 01-19-2017 Messenger Internal Medic ine Oral Syrup 1 (59345) Teaspoon(s) qhs prn for 0 days Quantity: 6 {Ounce} Refills: 0 Ordered: 19-Jan-2017 Kiersten Mccormick LPN Start : 11-Jan-2017 End : 19-Jan-2017 Inactive cyclobenzaprine FLEXERIL, 10MG 10-23-2011 - Kiersten Malone charlie (Oral Tablet) 1 11-30-2011 Jace Internal Med icine Tablet tid prn (30427) for 0 days Quantity: 30 {Tablet} Refills: 0 Ordered: 30-Nov-2011 Kiersten Mccormick LPN Start : 23-Oct-2011 End : 30-Nov-2011 Inactive NEGATED: Highlighted No Known Ernestina Compreh ensive row has not [facility] occurred!drug or Medications (13648) medication No Known Historical Medications Ernestina Rothman [facility] Internal Medicine (26864) Enoxaparin LOVENOX, 07-03-2009 DAVID Abel 60MG/0.6ML Internal Medici ne (Subcutaneous (68764) Solution) 1 (one) Solution Daily sc for 0 days Quantity: 7 {Solution} Refills: 0 Ordered: 24-Jan-2010 DAVID Sidhu Start : 03-Jul-2009 Inactive Esomeprazole Esomeprazole 07-09-2017 - Kiersten Abel Magnesium 40 MG 07-14-2017 [facility] Internal Med icine Oral Capsule (18693) Delayed Release 1 (one) Capsule qd for 0 days Quantity: 30 {Capsule} Refills: 1 Ordered: 14-Jul-2017 Kiersten Mccormick LPN Start : 09-Jul-2017 End : 14-Jul-2017 Inactive fexofenadine / YUE-D 12 HOUR, 12-29-2010 - Kiersten ya Pseudoephedrine 60-120MG (Oral 01-13-2011 Jace Internal M edicine Tablet Extended (62212) Release 12 Hour) 1 Tablet ER 12HR q12hr for 0 days Quantity: 20 {Tablet_ER_12HR} Refills: 0 Ordered: 13-Jan-2011 Kiersten Mccormick LPN Start : 29-Dec-2010 End : 13-Jan-2011 Inactive Fluconazole Fluconazole 150 MG 05-02-2018 - Ailyn Perez Compreh ensive Oral Tablet 1 10-11-2018 Internal Medic ine (one) Tablet x1 (82867) for 0 days Quantity: 1 {Tablet} Refills: 1 Ordered: 11-Oct-2018 Ailyn Perez Start : 02-May-2018 End : 11-Oct-2018 Discontinued DIFLUCAN, 150MG (Oral 04-04-2013 - DAVID De Pazens charlie Internal Tablet) uad Tablet 1 11-07-2013 Medicine (4 1449) today and may repeat in 2-3 days if not gone for 0 days Quantity: 2 {Tablet} Refills: 0 Ordered: 07-Nov-2013 DAVID Sidhu Start : 04-Apr-2013 End : 07-Nov-2013 Inactive fluticasone FLONASE, 50MCG/ACT 12-30-2010 - Kiersten Messenger Compre hensive (Nasal Suspension) 01-13-2011 Internal Medicine 2 (two) Puff(s) (84480) once daily for 0 days Quantity: 1 {Mora(s)} Refills: 0 Ordered: 13-Jan-2011 Kiersten Mccormick LPN Start : 30-Dec-2010 End : 13-Jan-2011 Inactive Hydrocortisone ANUSOL-HC, 25MG 06-29-2014 - Kiersten Mccormick Compreh ensive (Rectal 10-24-2014 Internal Medici ne Suppository) 1 (95544) Suppository UT every 6 hours prn for 0 days Quantity: 10 {Suppository} Refills: 1 Ordered: 24-Oct-2014 Kiersten Mccormick LPN Start : 29-Jun-2014 End : 24-Oct-2014 Inactive Ibuprofen ADVIL, 200MG (Oral DAVID De Paz ensive Tablet) for 0 days Internal Medicine Refills: 0 Ordered: (17835) 24-Jan-2010 DAVID Sidhu Inactive Lactase LACTAID, 4500UNIT 01-24-2010 DAVID De Paze nsive (Oral Tablet) for 0 Internal Medicine days Refills: 0 (32909) Ordered: 24-Jan-2010 DAVID Sidhu End : 24-Jan-2010 Discontinued Comments: This order discontinued per [facility]. Comment: This order discontinued per [facility]. methylprednisoLONE MEDROL 4 MG TBPK Take as 09-28-2017 - Benson Vaughn [facility] Now directed 10-03-2017 [facility] (67223) METHYLPREDNISOLONE [id number] Benson NAZARIO MEDROL 4 MG TBPK Take as 09-28-2017 - Benson NAZARIO [facility] No w Clinic directed 10-03-2017 (85663) METHYLPREDNISOLONE [id number] Benson NAZARIO Naproxen NAPROXEN , 500MG Ernestina Rothman Compr ehensive Internal (Oral Tablet Delayed Medicin e (80434) Release) 2 qd (500 MG) Inactive No current meds at No current meds at DAVID Wu omprehensive Internal this time this time Inactive Medicine (78014) No current meds at this time DAVID Sidhu [facility] prehensive Internal Medicine Inactive (65769) pantoprazole Pantoprazole Sodium 02-06-2019 Kiersten Mccormick Compr ehensive Internal 40 MG Oral Tablet Myah Agee Medicin e (09653) Delayed Release 1 (one) Tablet daily for 30 days Quantity: 30 {Tablet} Refills: 3 Ordered: 06-Feb-2019 Myah Agee DO, DO, Kathleen Start : 06-Feb-2019 Active Comments: EGD -- dx gastritis Protonix 40 MG Oral 10-11-2018 - 10-11-2018 Phillip Dominguez rehensive Internal Tablet Delayed Release Medicine (52085) 1 (one) Tablet daily for 30 days Quantity: 30 {Tablet} Refills: 3 Ordered: 11-Oct-2018 Phillip Noguera Start : 11-Oct-2018 End : 11-Oct-2018 Inactive Comment: EGD -- dx gastritis predniSONE PredniSONE 10 MG 01-11-2017 - Kiresten Mccormick Comprehe nsive Oral Tablet 1 (one) 01-19-2017 Internal Medicine Tablet bid x 3 then (22720) 1 daily x 3 days for 0 days Quantity: 9 {Tablet} Refills: 0 Ordered: 19-Jan-2017 Kiersten Mccormick LPN Start : 11-Jan-2017 End : 19-Jan-2017 Inactive Comments: with food Comment: with food Promethazine Promethazine HCl 01-02-2019 - Ailyn De Pazen sive 25 MG Oral Tablet 01-17-2019 Myah Agee Interna l Medicine 1 (one) Tablet q (29674) 8hr prn for 15 days Quantity: 30 {Tablet} Refills: 0 Ordered: 02-Jan-2019 Myah Agee DO, DO, Kathleen Start : 02-Jan-2019 End : 17-Jan-2019 Inactive raNITIdine ZANTAC 75, 75MG DAVID Sidhu Comprehens charlie (Oral Tablet) for Internal M edicine 0 days Refills: 0 (79552) Ordered: 24-Jan-2010 DAVID Sidhu Inactive VITAMINS/MINERALS VITAMINS/MINERALS Kiersten Mccormick Co mprehensive (Oral Tablet) (Oral Tablet) 1 Internal Me dicine daily Inactive (14964) Comments: flinstones VITAMINS/MINERALS (Oral Tablet) 1 Kiersten petersen Comprehensive Internal Medicine daily Inactive Comments: adithya (99133) Comment: flinstones Problems Active Problems Category Problem Name Status Date Location Abdominal pain Generalized Active 02-14-2018 - Comprehensive Internal abdominal pain Medicine (110 93) Anxiety disorders Anxiety Active Comprehens charlie Internal Medicine (24665 ) Chronic obstructive Bronchitis Active 01-19-2017 - Comprehe nsive Internal pulmonary disease and Medici ne (30863) bronchiectasis 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-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 other Medicine (90974) clotting factors Comment: Leiden- Deficiency and other Deficiency and other Active Comprehensive Internal anemia anemia Medicine (66826 ) Fever of unknown Fever Active 11-07-2013 Comprehensi ve Internal origin - Medicine (29880 ) Fluid and electrolyte Hypokalemia Active 02-14-2018 Compre hensive Internal disorders - Medicine (69302 ) Gastritis and Acute gastritis Active 02-14-2018 Comprehensi ve Internal duodenitis - Medicine (35155 ) Comment: EGD 12/26 cebul --- bx - said chronic moderate amt of gasttritis Genitourinary symptoms Dysuria Active 11-07-2013 - Compr ehensive Internal and ill-defined Medicine (44 701) conditions Headache; including Migraine with aura Active Co mprehensive Internal migraine Medicine (88628 ) Hemorrhoids Hemorrhoids Active Comprehensive I nternal Medicine (75692 ) Mycoses Candidiasis Active 11-07-2013 - Comprehensive I nternal Medicine (54746 ) Nausea and vomiting Nausea Active 01-24-2010 - Comprehe nsive Internal Medicine (17530 ) Comment: seems to be gastritis or radha d etology -- ppi workign - plan is to stay on for 3-4 mo then taper Nonspecific chest pain Chest pain at Active 08-20-2017 - Comp rehensive Internal rest Medicine (24480 ) Comment: multifacorial etology?-- ms with cough? illness in itself otehrs at [facility] have it too,gerd from predni sone, anx def reflaring -- will cont to follow- treat anx - try to break up phelm nad she is off pred now Other connective tissue Pain in calf Active 11-07-2013 - Comp rehensive Internal disease Medicine (59332 ) Other connective tissue Myalgia Active Comp rehensive Internal disease Medicine (50380 ) Other endocrine disorders Hypoglycemia Active Co mprehensive Internal Medicine (03687 ) Comment: eating more frequently Other gastrointestinal Diarrhea Active 01-24-2010 - Compr ehensive Internal disorders Medicine (61559 ) Other gastrointestinal Celiac disease Active Com prehensive Internal disorders Medicine (32365 ) Comment: new dx Other inflammatory Pityriasis rosea Active Compr ehensive Internal condition of skin Medicine ( 05016) Other lower respiratory Cough Active 08-20-2017 Comp rehensive Internal disease - Medicine (53450 ) Other and state, Active Compr ehensive Internal delivery including incidental Medicine (49240) normal Comment: 09/17/14 Other upper respiratory Sinusitis Active 06-29-2014 - Comp rehensive Internal infections Medicine (86474 ) Residual codes; Body Mass Index Active Comprehen sive Internal unclassified between 19-24, adult Medicin e (01750) Residual codes; Body mass index Active Comprehen sive Internal unclassified (BMI) 21.0-21.9, Medicine (4 7800) adult Spondylosis; Neck pain Active 11-07-2013 - Comprehensive I nternal intervertebral disc Medicine (85732) disorders; other back problems Unclassified FACTOR V DEFICIENCY, Active Compreh ensive Internal NOS (286.3) Medicine (95322 ) Unclassified Non-smoker Active Comprehensive I nternal Medicine (51581 ) Unclassified BMI between Active Comprehensive I nternal 19-24,adult Medicine (66416 ) Unclassified Active Comprehensive I nternal Medicine (22213 ) Viral infection Viral infection, Active Comprehe nsive Internal unspecified Medicine (29855 ) Past or Other Problems Category Problem Name Status Date Location Acute bronchitis Acute bronchitis Completed 09-28-2017 [facility] Now Clinic - - (62050) 11-07-2013 - Congestive heart Congestive heart Completed Compreh ensive failure; failure; Internal Medici ne nonhypertensive nonhypertensive (07993) Other complications of Anemia in the Completed 02-14-2018 Comp rehensive ; puerperium puerperium - baby - Inter nal Medicine affecting management delivered during (44 711) of mother previous episode of care Other connective Muscle pain Completed 11-07-2013 Comprehensi ve tissue disease - Internal Medi cine (31102) Other connective Spasm Completed 11-07-2013 Comprehensi ve tissue disease - Internal Medi cine (90186) Other ear and sense Impacted cerumen Completed 06-29-2014 Comp rehensive organ disorders - Internal Med icine (08957) Other ear and sense Otalgia Completed 06-29-2014 Comprehe nsive organ disorders - Internal Med icine (37405) Other female genital Disorder of female Completed 11-07-2013 C omprehensive disorders genital organs - Internal Medi cine (05815) Comment: suspect ovarian cyst - will await ultrasound results if neg for ovarian cyst will re think it and do more w/u Other injuries and H/O: fracture Completed 11-07-2013 - Comprehe nsive Internal conditions due to Medicine ( 10767) external causes Comment: right 6 years ago Other lower Postviral cough Completed 01-19-2017 - Comprehensiv e Internal respiratory disease Medicine (94255) Other skin disorders Eruption Completed 01-19-2017 - Compreh ensive Internal Medicine (86470 ) Residual codes; Influenza-like Completed 01-19-2017 - Comprehens charlie Internal unclassified symptoms Medicine (91125 ) Comment: neg Unclassified BMI 20.0-20.9, adult Completed Compreh ensive Internal Medicine (75765 ) Unclassified Impacted cerumen of both Com prehensive Internal ears (380.4) Medicine (37124 ) Unclassified Rash Comprehensive I nternal Medicine (73771 ) Unclassified Pre-operative Comprehensive Internal examination, unspecified Med icine (75180) (V72.84) Unclassified Ear pain (388.70) Comprehens charlie Internal Medicine (39930 ) Unclassified Acute generalized Comprehens charlie Internal abdominal pain Medicine (440 91) Unclassified Acute gastritis without Comp rehensive Internal hemorrhage, unspecified Medi cine (16690) gastritis type Unclassified Body mass index (BMI) Compre hensive Internal 21.0-21.9, adult Medicine (4 1091) Unclassified Abdominal Comprehensive I nternal Pain,RUQ(789.01) Medicine (4 1464) Unclassified Aneta infection (112.9) Co mprehensive Internal Medicine (60564 ) Unclassified Preprocedural examination Completed 01-24-2010 - Co mprehensive Internal done Medicine (03822 ) Comment: requested by Unclassified Unspecified Diagnosis 11-07-2013 - Compre hensive Internal Medicine (65783) Unclassified Status Comprehensi ve Internal Medicine (17031) Comment: 1 Unclassified RUQ pain Comprehensive I nternal Medicine (97531) Unclassified Flu-like symptoms Comprehens charlie Internal Medicine (84398) Unclassified Deliveries (Parity) Comprehe nsive Internal Medicine (10586) Comment: 1 Unclassified Post-viral cough syndrome Co mprehensive Internal Medicine (83084) Unclassified Vaginal yeast infection Comp rehensive Internal Medicine (65658) Unclassified Muscle spasm (728.85) Compre hensive Internal Medicine (86238) Results Result Name Value Range Unit Interpretation Flag Date Location progress on 2019-03 Protein mass conc HNO ID: [id number] Normal [facility] Author: Haleigh (Cyndie) Norma Perry ([id number]) Service: ? Author Type: Nurse Practitioner Type: [...] Procedure Laterality Date - ORAL SURGERY PROCEDURE [place] - PAST SURGICAL HISTORY OF RIGHT [...] 2019-03-27 CNOV Office Visit (WOOB) Normal 03-27-2019 [place] [facility] JAZMINE ARRIAGA ([id number]) 1985 [facility] Date Time Provider Department (23662) 03/27/19 2:00 PM HALEIGH GREEN (CYNDIE) WOOB [...] Procedure Laterality Date - ORAL SURGERY PROCEDURE [place] - PAST SURGICAL HISTORY OF RIGHT [...] not stop or happens again) Haleigh Green, WORKERS' COMPENSATION CLAIMS SUPERVISOR.BLANKBOOK FORWARDER Referring Provider: SELF [[id number]] Allergies As of Date: 03/27/2019 Noted Allergy Reaction CIPROFLOXACIN 12/31/2011 1 - Mental Status Change 10 - Anaphylaxis Comments: [place] like she was having an anxiety attack. [...] on 2018-12-02 [place] GASTRIC ORIGINAL Normal 12-02-2018 [facility] EMPTYING STUDY [place] GASTRIC EMPTYING STUDY [facility] ([place]) (85343) Clinical Statement: EPIGASTR IC ABDOMINAL PAIN, ABDOMINAL [...] nausea History Normal 11-15-2018 (Gastroenterology) of Present Loovmkl45-xpci-lod female Touchworks presents today as a follow-up after (35022) recent EGD performed on 11/02/18. Exam demonstrated [...] 12:42:20 PM DentaGel 1.1 % Dental Gel;Therapy: 65Fcp7715 to Recorded Rx By: ARIC; Dispense: 30 [...] 12:42:20 PM Vitals Vital Signs Recorded: 15Nov2018 11:57QAKklusbzk591Bgzsviqvx10Npucax9 ft 4 ohThufdz067 lb BMI Iedctubbph44.91BSA Calculated1.55 Physical ExamConst: Vital signs reviewed.ENMT: Oral [...] Only; Status:Hold For - Scheduling; Requested for::30AM; Perform:[facility] Radiology Services Imaging; Order Comments:PATIENT IS GLUTEN [...] office status post gastric study for reevaluation. [facility] surgical pathology department on 2018-11-02 [facility] Surgical Name JAZMINE ARRIAGA Accession Norm al 11-02-2018 [facility] Pathology #: [id number] Pathologist: [facility] Department PABLO VALDES, MDDate of (37083) Procedure: 11/02/2018Date Received: 11/02/2018Date Reported 11/03/2018Submitting Physician: ROSALEE SUH DOLocation: APMISC Other External # FINAL DIAGNOSISA. ANTRUM BIOPSY: --GASTRIC OXYNTIC TYPE MUCOSA WITH MINIMAL CHRONIC INFLAMMATION.--NO MORPHOLOGIC EVIDENCE OF HELICOBACTER ORGANISMS SEEN ON H AND E SLIDES.Interpretation [facility] [id number] [place], [place] [address]Tjbnd: Electronically Signed Out By PABLO VALDES MD/NIKITABy [...] in one cassette.DPGdpg/11/02/2018 Comment: Performed By: #### [facility] #### [facility] Surgical Pathology [id number] [place] [facility] [address] initial visit (gastroenterology) on 2018-10-26 Initial Visit Chief ComplaintGastritis, nausea History Normal 10-26-2018 (Gastroenterology) of Present Wecpftp30-wjzf-awt female Monae presents today as a new patient for (40501) evaluation of persistent nausea and gastritis. Patient [...] Sodium 40 MG Oral Tablet Delayed Release;Therapy: (Recorded:49Bhv3329) to Recorded Dispense: 0 Days ; #: Sufficient; Refill: 0; GHANSHYAM = N; Record; Last Updated By: Unique Pryor; 10/26/2018 10:16:52 AM Phenergan 25 MG TABS;Therapy: (Recorded:19Tej3064) to Recorded Dispense: 0 Days ; #: Sufficient; Refill: 0; GHANSHYAM = N; Record; Last Updated By: Unique Pryor; 10/26/2018 10:16:52 AM Probiotic Formula 1-250 BILLION-MG Oral Capsule;Therapy: (Recorded:49Jmj3894) to Recorded Dispense: 0 Days ; #: Sufficient; Refill: 0; GHANSHYAM = N; Record; Last Updated By: Unique Pryor; 10/26/2018 10:16:52 AM Vitals Vital Signs Recorded: 25Udn3063 10:11AMHeart Awvn86Pozavmsz600Lhyzvfyxd37Xhkpoo2 ft 4 jeQdudsh406 lb 2 ozBMI Atdzayitll51.76BSA Calculated1.55 Physical ExamConst: Vital signs reviewed.ENMT: Oral [...] pain Endoscopy - Upper GI; Status:Complete; Done: 06Avk8140 Perform:Non Facility; Due:31Jan2019; Last Updated By:Unique Pryor; [...] on CNNURSE Nurse Visit (CORWST) Normal 8 [place] [facility] JAZMINE ARRIAGA ([id number]) 1985 [facility] Date Time Provider Department (57188) 08/06/18 11:00 AM NURSE [facility] CORWST During your visit today, we recorded the following informati on about you: Trudy Larkin CMA, MA 08/06/2018 11:10 AM Signed 32 year old female here for INACTIVATED INFLUENZA VACCINE. 4862-1609 Season Patient is identified by name and date of : Yes ___ [] CONTRAINDICATIONS color enhanced section Age less than 6 months? No Allergy to eggs, chicken, chicken feathers, or chicken dande r? No Allergy to thimerosal (a preservative) or formaldehyde, addison tin? No History of severe reaction to any vaccine component or a pre vious dose of influenza vaccination? No History of Guillain-[place] Syndrome within 6 weeks afte r a [...] sheet given? Yes See immunization activity in [facility] details of immunizations adminstered today. Patient age: [age] year old For The 3024-6257 Flu Season 6-35 months old: Fluzone 0.25 [...] Mental Status Change 10 - Anaphylaxis Comments: [place] like she was having an anxiety attack. Swelli ng in throat. Difficulty breathing. Took benadryl and symptoms subsided. GLUTEN 04/05/2018 8 - GI Upset Date Reviewed: 07/13/2018 Reviewed by: Haleigh ([facility] [facility]) Norma - Fully Assessed Reason for Visit: Imm/Inj [58] Cmt: Flu Vaccine Primary Visit Diagnosis:Need for vaccination [Z23] Order(s):INFLUENZA VACCINE QUADRIVALENT AGE 3 YRS PLUS + IM [[id number]] Order #: [id number] Prescriptions as of 08/06/2018 Sig: BUSPIRONE 15 [...] 08/06/18 progress on 2018-07 Protein HNO ID: [id number] Normal 08-03-2018 [place] mass Author: Trudy TylerBela) [facility] conc Service: (none) Michel mckinley Author Type: Director Electronics ([id number]) Type: Progress Notes Filed: 08/06/2018 11:10 AM [...] dose of influenza vaccination? No History of Guillain-[place] Syndrome within 6 weeks after a pr [...] on 2018-07 Protein mass conc HNO ID: [id number] Normal [facility] Author: Breann Wang [place] ([id number]) Service: (none) Author Type: (none) Type: Progress Notes Filed: 07/22/2018 10:20 AM Note Text: Pap logged and normal pap letter sent to patient. Breann olivarez progress on 2018-07 Protein mass conc HNO ID: [id number] Normal [facility] Author: Haleigh Green [place] ([id number]) Service: (none) Author Type: Nurse Practitioner Type: [...] Procedure Laterality Date - ORAL SURGERY PROCEDURE [place] - PAST SURGICAL HISTORY OF RIGHT [...] genitalia normal, normal Bartholin's glands , urethra, Clancy's glands, no vulvar lesions, no cervical lesions, [...] year or sooner as needed Haleigh Green APRN.BLANKBOOK FORWARDER hpv w/genotype on HPV HighRisk Negative for HPV DNA high risk types: Normal 07-13-2018 [place] Other 31,33,35,39,45,51,52,56,58,59,66,68 by Clinic PCR. [place] ([id number]) Comment: Result Comment: This test wa s developed and its performance characteristics determined by [facility]'s Dakota Jackman [facility] [place] ([facility]). It has not been cleared or a pproved by the FDA. -[facility] is regulated under CLIA as qualified to perform high-complexity testing. This test is used for clinical purposes. It should not be regarded as inv estigational or for research . Performed By: #### HPVHRR ## ## [facility] [phone] HPV HighRisk Type 16 Negative for HPV DNA Normal 07-13-2018 [facility] high risk type 16 by [place] ([id number]) PCR. Comment: Performed By: #### HPVHRR ## ## [place] [id number] [place] [phone] HPV HighRisk Type 18 Negative for HPV DNA Normal 07-13-2018 [facility] high risk type 18 by [place] ([id number]) PCR. Comment: Performed By: #### HPVHRR ## ## [place] [address] [place] [phone] cytology on 2018-07 CYTOLOGY Normal 07-13-2018 [place] ADDITIONAL PROCEDURES PRESENT Clinic [place] ([id number]) Specimen originated from [facility] Specimen #: [id number] Submitting Physician: HALEIGH GREEN SPECIMEN SUBMITTED A: [...] developed and its performance characteristics determined by [facility]'s Dakota Jackman [facility] Pathology and Laborator y Medicine [place] ([facility]). It has not been cleared or approved by the FDA. [facility] is r egulated under CLIA as qualified to perform high-complexity testing. This test is used for clinical purposes. It should not be regarded as investigatio nal or for research. CLINICAL DATA ROUTINE EXAM, HPV Testing: Yes, automatic HPV patients over 30 Date of Last Menstrual Period: 06/18/2018 STAINS A: CERVICAL, SCREENING, FLUID THIN PREP [employer]URE AND FISHERIES PROFESSOR Ernestina Walter M.D., Deputy Juvenile Officer Date of Report: 07/22/2018 Date of Procedure: 07/13/2018 Date of Receipt: 07/15/2018 Submitted by: HALEIGH GREEN Location: [facility] Diagnostic interpretation performed at [facility], [address] [place], [place] [id number]. The Pap Smear is a screening test for cervical cancer. False negative results occur with all screening tests, emphasizing the need for rescreening at recommended intervals, and clinical correlati on. cnov on 2018-07-13 CNOV Office Visit (WOOB) Normal 07-13-2018 [place] [facility] JAZMINE ARRIAGA ([id number]) 1985 [facility] Date Time Provider Department ([id number]) 07/13/18 1:15 PM HALEIGH GREEN (BLANKBOOK FORWARDER) WOOB During your visit today, we recorded [...] Procedure Laterality Date - ORAL SURGERY PROCEDURE [place] - PAST SURGICAL HISTORY OF RIGHT [...] genitalia normal, serina l Bartholin's glands, urethra, Clancy's glands, no vulvar lesions, no cervical lesions, [...] Mental Status Change 10 - Anaphylaxis Comments: [place] like she was having an anxiety attack. Swelli ng in throat. Difficulty breathing. Took benadryl and symptoms subsided. GLUTEN 04/05/2018 8 - GI Upset Date Reviewed: 07/13/2018 [facility]ed by: [facility]) Norma - Fully Assessed Reason for Visit: Yearly Exam [187] Primary Visit Diagnosis:Encounter for gynecological examinat ion (general) (routine) without abnormal findings [Z01.419] Other Visit Diagnoses:Screening for cervical cancer [Z12.4] Encounter for screening for human papillomavirus (HPV) [Z11.51] Order(s):PAP FLUID CERVICAL SCREENING [[id number]] Order #: [id number]. #:[id number] HPV W/GENOTYPE [SQHPVHRR] Order #: [id number]. #:[id number] Prescriptions as of 07/13/2018 Sig: BUSPIRONE [...] Text Haleigh Green CNP [facility] [address] [place] [phone] Jazmine Arriaga [address] [address] [facility] [address] 07/22/2018 [facility]: [id number] Dear Jazmine, We are pleased to inform you that your recent Pap Test was w ithin normal limits. Because Pap tests are so effective in the early detection of cervical cancer, you are encouraged to continue having the test at regular in [facility]. You will be due for a 1 year Gynecological Exam after this date 07/14/2019. If you have any questions regarding the above in formation, do not hesitate to call our office at between the hours of 8:00 a.m. and 5:00 p.m. Sincerely, Haleigh Green CNP Encounter Status:Closed by HALEIGH GREEN on 07/13/18 crp Ordered By: Syst em Forestry Conservation Worker on 2018-01-12 CRP High sensitivity < 2.90 0.0-3.0 mg/L Normal 8 [facility] Internal method [facility] (75146) Comment: C-Reactive Protein (CRP) pro kali useful information for thediagnosis, therapy and monitoring of in flammatory processesand associated diseases. For the evaluation of Relative R iskfor Cardiovascular Disease, a High Sensitivity CRP (HSCRP)shoul d be ordered. [facility] [address]xs[address] [facility] [place] [place], [place], [phone] celiac disease profile Ordered By: Blanket Cutting Machine Operator on 2018-01-12 240 87-352 mg/dL Normal 01-12-2018 [facility] (20653) Comment: Performed at: - [facility] [place] [id number] [place], [place] [id number] Director: Jones Moses PhD, Phone: [phone] [facility] (refer to report for specific site)refer to report for address and phone number 3 0-3 U/mL Normal 01-12-2018 [facility] (69524) Comment: Negative 0 - 3 Weak Positive 4 - 10 Positive >10 Tissue Transglutaminase (tTG) has been identified as the endomysial antigen. Studies have demonstr- ated that endomysial IgA ant ibodies have over 99% specificity for gluten sensitive enteropathy. [facility] (refer to report for specific site)refer to report for address and phone number Positive Abnormal 01-12-2018 [facility] (83511) Comment: [facility] (refer to report for specific site)refer to report for address and phone number immunohistochemistry Ordered By: Blanket Cutting Machine Operator on 2017-12-17 IMMUNOHISTOCHEMISTRY See Note Normal 8 [facility] (04336) Comment: Patient: JAZMINE ARRIAGA DO B: 1985 (32/F) Acct Num: [id number] Phys: Hector HENRY,[facility]ly [facility] N um: [id number] Loc: EN Specimen: [id number] Received: 12/20/17 - 1139 Sp ec Type: IMMUNO TISSUES TISSUES: B. Pylorus SPECIMEN INFORMATION: Tissue Source: B Prepyloric polyp Clinical Info: Nausea/vomiting Specimen Num catherine: [id number] CPT code: 55468 METHODOLOGY: Deparaffinized sections of p refer/formalin-fixed tissue [...] and their per formance characteristics determined by [facility] Laborator y. They may not have been cleared or approved by the U.S. Food and Drug Admin istration. The FDA has determined that such clearance or approval is not necessary. INTERPRETATION: B. Prepyloric polyp, biopsy: Negative for Helicob acter pylori organisms. AM:harmony 12/20/17 PHYSICIAN AND INSTITUTION [address] [address] Signed Cesario Bindu 12/20/17 [facility] L [address] [place] [address]. [place], [place], [phone] culture, r/o strep a Ordered By: Blanket Cutting Machine Operator on 2017-12-13 See Note Normal 12-13-2017 [facility] (66698) Comment: SHANTAL CultureNo Streptococcus group A isolated. * This cultures intended use is to screen for Beta Strept ococcus A only. All other pathogens and potential pathogens will not be screened for or reported. If a complete workup of all potential path ogens is indicated an order for a routine throat culture is required. [facility] [address] [place], [address] office visit: uc: sinus on 2017-09-28 Documentation of Done Invalid 09-28-2017 - [facility] Now current medications Interpretation Code 09-28-2017 Clinic (procedure) (05706) Tobacco smoking Never Invalid 09-28-2017 - W Now status NHIS Interpretation Code 09-28-20 17 Clinic (00458) Tobacco use CPHS Never smoker Invalid 09-28-2017 - [facility] Now Interpretation Code 09-28-2017 Clinic (23058) potassium serum (36120) Ordered By: Blanket Cutting Machine Operator on 2017-07-26 Potassium molar conc 3.7 3.5-5.2 mmol/L Normal 7 [facility] ( 64005) Comment: PATIENT NOT FASTINGPERFORMED BY: CB [facility] Pyafup6379 [facility] [id number] magnesium (65873) Or dered By: Blanket Cutting Machine Operator on 2017-07-26 Magnesium mass conc 2.1 1.6-2.3 mg/dL Normal 07-26-2017 [facility] Internal Medicine ( 78633) Comment: PATIENT NOT FASTINGPERFORMED BY: [employer] [facility] Nwecml2119 [facility] [id number] miscellaneous lab procedure Ordered By: Blanket Cutting Machine Operator on 2017-07-09 MISC LAB TEST Normal 07-09-2017 [facility] Internal Medicine (47678) Comment: TEST RESULT UNITS REFERENCE INTERVALH pylori, [...] s developed and its performance characteristicsdetermined by [facility]. It has not been cleared or approvedby the Food and Drug Administration. TESTING PERFORMED AT [facility] . ORIGINAL REPORT ON FILE IN LAB CONTAINS ADDITIONAL TEST SITE INFORMATION. Comments: [id number] HELICOBAC TER PYLORI AB IGA IGG IGM RFTest(s) Ordered: [id number] HELICOBACTER PYLORI AB IGA IGG IGM [facility] [address] [place], [place], [phone] lipase Ordered By: S ystem Forestry Conservation Worker on 2017-07-09 Lipase enzyme act/vol 374 73-393 U/L Normal 07-09-20 17 [facility] ( 10027) Comment: Comments: [id number] HELICOBAC TER PYLORI AB IGA IGG IGM [facility] [address] [place], [place], [phone] erythrocyte sed rate Ordered By: Blanket Cutting Machine Operator on 2017-07-09 1 0-20 mm/h Normal 07-09-2017 [facility] (42565) Comment: [facility] L [address] [place], [address] comprehensive metabolic profil Ordered By: Blanket Cutting Machine Operator on 2017-07-09 Comprehensive metabolic 17 12-78 U/L Normal 2016 [facility] Internal 2000 panel Medicine (72628) Comment: Comments: [id number] HELICOBAC TER PYLORI AB IGA IGG IGM [facility] [address] [place], [place], [phone] Comprehensive metabolic 4.2 3.4-5.0 g/dL Normal 2016 [facility] Internal 2000 panel Medicine (61900) Comment: Comments: [id number] HELICOBAC TER PYLORI AB IGA IGG IGM [facility] [address] [place], [place], [phone] Comprehensive metabolic 55 45-117 U/L Normal 2016 [facility] Internal 2000 panel Medicine (07616) Comment: Comments: [id number] HELICOBAC TER PYLORI AB IGA IGG IGM [facility] [address] [place], [place], [address] Comprehensive metabolic 104 mL/min Normal 2016 [facility] 2000 panel Medicine (51439) Comment: Non- GFR Taty c Comments: [id number] HELICOBAC TER PYLORI AB IGA IGG IGM [facility] [address] [place], [place], [phone] Comprehensive metabolic 7.8 6.4-8.2 g/dL Normal 2016 [facility] Internal 2000 panel Medicine (90735) Comment: Comments: [id number] HELICOBAC TER PYLORI AB IGA IGG IGM [facility] [address] [place], [address] Comprehensive metabolic 0.50 0.20-1.00 mg/dL Normal 2016 [facility] Internal 2000 panel Medicine (47283) Comment: Comments: [id number] HELICOBAC TER PYLORI AB IGA IGG IGM [facility] [address] [place], [place], [phone] Comprehensive metabolic 3.6 2.3-3.5 g/dL Abnormal 2016 [facility] Internal 2000 panel Medicine (77875) Comment: Comments: [id number] HELICOBAC TER PYLORI AB IGA IGG IGM [facility] [address] [place], [address] Comprehensive metabolic 0.71 0.55-1.02 mg/dL Normal 2016 [facility] Internal 2000 panel Medicine (97108) Comment: The validity of the calculat ed GFR AND GFRAA in patients over70 years has not been determined. Clinica l correlation isessential. Comments: [id number] HELICOBAC TER PYLORI AB IGA IGG IGM [facility] [address] [place], [place], [phone] Comprehensive metabolic 1.2 0.9-2.4 {RATIO} Normal 2016 [facility] Internal 2000 panel Medicine (91110) Comment: Comments: [id number] HELICOBAC TER PYLORI AB IGA IGG IGM [facility] [address] [place], [place], [address] Comprehensive metabolic 7 7-18 mg/dL Normal 2016 [facility] Internal 2000 panel Medicine (21083) Comment: Comments: [id number] HELICOBAC TER PYLORI AB IGA IGG IGM [facility] [address] [place], [address] Comprehensive metabolic 79 70-110 mg/dL Normal 2016 [facility] Internal 2000 panel Medicine (82984) Comment: Comments: [id number] HELICOBAC TER PYLORI AB IGA IGG IGM [facility] [address] [place], [address] Comprehensive metabolic 9.0 8.5-10.1 mg/dL Normal 2016 [facility] Internal 2000 panel Medicine (07989) Comment: Comments: [id number] HELICOBAC TER PYLORI AB IGA IGG IGM [facility] [address] [place], [address] Comprehensive metabolic 125 mL/min Normal 2016 [facility] Internal 2000 panel Medicine (97923) Comment: GFR Calc Comments: [id number] HELICOBAC TER PYLORI AB IGA IGG IGM [facility] [address] [place], [address] Comprehensive metabolic 2000 7 5-15 1 Normal 0 07-09-2017 [facility] Internal panel Medicine ( 13790) Comment: Comments: [id number] HELICOBAC TER PYLORI AB IGA IGG IGM [facility] [address] [place], [address] Comprehensive metabolic 106 98-107 mmol/L Normal 2016 [facility] Internal 2000 panel Medicine (44059) Comment: Comments: [id number] HELICOBAC TER PYLORI AB IGA IGG IGM [facility] [address] [place], [address] Comprehensive metabolic 9.9 10-20 {RATIO} Abnormal 2016 [facility] Internal 2000 panel Medicine (06402) Comment: Comments: [id number] HELICOBAC TER PYLORI AB IGA IGG IGM [facility] [address] [place], [address] Comprehensive metabolic 3.4 3.5-5.1 mmol/L Abnormal 2016 [facility] Internal 2000 panel Medicine (88441) Comment: Comments: [id number] HELICOBAC TER PYLORI AB IGA IGG IGM [facility] [address] [place], [address] Comprehensive metabolic 14 15-37 U/L Abnormal 2016 [facility] Internal 2000 panel Medicine (81363) Comment: Comments: [id number] HELICOBAC TER PYLORI AB IGA IGG IGM [facility] [address] [place], [address] Comprehensive metabolic 141 136-145 mmol/L Normal 2016 [facility] Internal 2000 panel Medicine (41999) Comment: Comments: [id number] HELICOBAC TER PYLORI AB IGA IGG IGM [facility] [address] [place], [address] Comprehensive metabolic 28.0 21.0-32.0 mmol/L Normal 2016 [facility] Internal 2000 panel Medicine (09663) Comment: Comments: [id number] HELICOBAC TER PYLORI AB IGA IGG IGM [facility] [address] [place], [address] cbc w/diff, automated Ordered By: Blanket Cutting Machine Operator on 2017-07-09 Absolute Neut 3.2 2.0-7.7 {X10_3/uL} Normal 07-09-2017 [facility] Internal Medicine ( 81062) Comment: [facility] [place], [place], [phone] Basophils/100 WBC (Bld) 0.9 0-1 % Normal 2016 [facility] (28939) Comment: [facility] [address] [place], [place], [phone] Eosinophils/100 WBC (Bld) 2.1 0-5 % Normal [facility] (56549) Comment: [facility] [place], [place], [phone] Erythrocyte distribution 12.2 11.6-14.6 % Normal 07-09 [facility] Internal width Ratio (RBC) Ct juan daniel (14639) Comment: [facility] [place], [place], [id number] Hematocrit Volume Fraction 41.0 37-47 % Normal [facility] Internal (Bld) Medicine ( 26302) Comment: [facility] [place], [place], [phone] Hemoglobin mass conc 13.5 12.0-15.0 g/dL Normal 7 [facility] Internal (Bld) Medicine ( 95365) Comment: [facility] [place], [place], [phone] IM GRAN % 0.200 0.0-0.9 % Normal 07-09-2017 [facility] (77578) Comment: IG% - Immature Granulocytes (promyelocytes, myelocytes andmetamyelocytes) > 1% indicates that a LEFT CAR FT is Present. [facility] [place], [place], [phone] Lymphocytes #/vol 2.72 0.83-4.51 {X10_3/ul} Normal 07-09-2017 Comprehensive (Bld) Internal M edicine (41650) Comment: [facility] [place], [address] Lymphocytes/100 WBC (Bld) 41.7 19-41 % Abnormal [facility] ( 07966) Comment: [facility] [place], [address] MCH Entitic mass (RBC) 30.5 27.0-32.0 pg Normal 017 [facility] ( 16450) Comment: [place] [address] [place], [address] MCHC mass conc (RBC) 32.9 32-36 {g/gl} Normal 7 [facility] ( 44374) Comment: [place] [address] [place], [place], [address] MCV Entitic volume (RBC) 92.6 81-99 fL Normal 07-09 [facility] ( 68307) Comment: [place] [address] [place], [place], [address] Monocytes/100 WBC (Bld) 6.4 0-10 % Normal 2016 [facility] (98354) Comment: [place] [address] [place], [place], [address] Neutrophils/100 WBC (Bld) 48.7 47-70 % Normal [facility] ( 40836) Comment: [place] [address] [place], [place], [phone] Platelet mean volume 10.1 6.2-12.0 fL Normal 7 [facility] Internal Entitic volume (Bld) Medicine (35846) Comment: [place] [address] [place], [place], [address] Platelets #/vol (Bld) 419 150-450 K/mm3 Normal 07-09-20 17 [facility] ( 23045) Comment: [address] [place], [place], [address] RBC #/vol (Bld) 4.43 4.2-5.4 {M/mm3} Normal 07-09-2017 [facility] prehensive Internal Medicine ( 44802) Comment: [facility] [address] [place], [place], [phone] RDW SD 40.7 35.1-43.9 fL Normal 07-09-2017 [facility] (29495) Comment: [facility] [address] [place], [place], [address] WBC #/vol (Bld) 6.5 4.4-11.0 K/mm3 Normal 07-09-2017 [facility] prehensive Internal Medicine (69020) Comment: [facility] [address] [place], [place], [address] amylase Ordered By: Blanket Cutting Machine Operator on 2017-07-09 Amylase enzyme act/vol 106 25-115 U/L Normal [facility] Comprehensive Internal Medicine ( 29485) Comment: Comments: [id number] HELICOBAC TER PYLORI AB IGA IGG IGM [facility] [address]wehmlja[address] [facility] [address] [place], [place], [address] tsh (64906) Ordered By: Blanket Cutting Machine Operator on 2017-01-19 Thyrotropin Qn 0.703 0.450-4.500 {uIU/mL} Normal 01-19-2017 [facility] ( 22240) Comment: PATIENT NOT FASTINGPERFORMED BY: CB [facility] Ddtbpn5744 [facility] [id number] cbc w/auto diff wbc (60942) Ordered By: Blanket Cutting Machine Operator on 2017-01-19 Basophils #/vol 0.0 0.0-0.2 {x10E3/uL} Normal 01-19-2017 [facility] (d) Medicine ( 59778) Comment: PATIENT NOT FASTINGPERFORMED BY: CB [facility] Xcnsaf5042 [facility] [id number] Basophils/100 WBC (Bld) 0 % Normal 2016 [facility] (78504) Comment: PATIENT NOT FASTINGPERFORMED BY: CB [facility] Su[address]xvz44[address]Dublin [place] [id number] Eosinophils #/vol 0.2 0.0-0.4 {x10E3/uL} Normal 01-19-2017 [facility] Internal (Bld) Medicine ( 66394) Comment: PATIENT NOT FASTINGPERFORMED BY: CB [facility] Ijfsgk5361 [address]Dublin [place] [id number] Eosinophils/100 WBC (Bld) 3 % Normal 01-06 [facility] (48309) Comment: PATIENT NOT FASTINGPERFORMED BY: CB [facility] Zgjznm8[address]ublin [place] [id number] Erythrocyte distribution 12.8 12.3-15.4 % Normal 01-19 Comprehensive Internal width Ratio (RBC) Me dicine (29689) Comment: PATIENT NOT FASTINGPERFORMED BY: CB [facility] Jhwmks5533 [address]Dublin [place] [id number] Hematocrit Volume 41.7 34.0-46.6 % Normal 01-19-2017 C omprehensive Internal Fraction (Bld) Medic ine (00324) Comment: PATIENT NOT FASTINGPERFORMED BY: CB [facility] Qnrfhu5687 [address]Dublin [place] [id number] Hemoglobin mass conc 13.8 11.1-15.9 g/dL Normal 7 [facility] Internal (Bld) Medicine ( 87509) Comment: PATIENT NOT FASTINGPERFORMED BY: CB [facility] Cnsaab6723 [address] RoadDublin [place] [id number] Immature granulocytes 0.0 0.0-0.1 {x10E3/uL} Normal 017 Comprehensive Internal #/vol (Bld) Medicine (26448) Comment: PATIENT NOT FASTINGPERFORMED BY: CB [facility] Zwxajr4725 [address]Dublin [place] [id number] Immature granulocytes/100 WBC 0 % Normal 01-19-2017 [facility] Internal (Bld) Medicine ( 20232) Comment: PATIENT NOT FASTINGPERFORMED BY: CB [facility] Trrpcw0360 [address]ublin [place] [id number] Lymphocytes #/vol 3.4 0.7-3.1 {x10E3/uL} Abnormal 01-19-2017 [facility] Internal (d) Medicine ( 23236) Comment: PATIENT NOT FASTINGPERFORMED BY: MIGUEL [address] [facility] [id number] Lymphocytes/100 WBC (Bld) 48 % Normal 01-06 [facility] Internal Medicine (96451) Comment: PATIENT NOT FASTINGPERFORMED BY: MIGUEL [address] [facility] [id number] MCH Entitic mass (RBC) 30.2 26.6-33.0 pg Normal 017 [facility] Internal Medicine ( 15891) Comment: PATIENT NOT FASTINGPERFORMED BY: MIGUEL [address] [facility] [id number] MCHC mass conc (RBC) 33.1 31.5-35.7 g/dL Normal 7 [facility] Internal Medicine ( 74910) Comment: PATIENT NOT FASTINGPERFORMED BY: MIGUEL [address] [facility] [id number] MCV Entitic volume (RBC) 91 79-97 fL Normal 01-19 [facility] Internal Medicine ( 93218) Comment: PATIENT NOT FASTINGPERFORMED BY: MIGUEL [id number] [facility] [id number] Monocytes #/vol 0.5 0.1-0.9 {x10E3/uL} Normal 01-19-2017 [facility] Internal (d) Medicine ( 06441) Comment: PATIENT NOT FASTINGPERFORMED BY: MIGUEL [id number] [facility] [id number] Monocytes/100 WBC (Bld) 7 % Normal 2016 [facility] Internal Medicine (69287) Comment: PATIENT NOT FASTINGPERFORMED BY: MIGUEL [facility] [id number] [facility] [place] [id number] Neutrophils #/vol 3.0 1.4-7.0 {x10E3/uL} Normal 01-19-2017 [facility] Internal ([facility] Medicine ( 82995) Comment: PATIENT NOT FASTINGPERFORMED BY: MIGUEL LabNissa [id number] [facility] [id number] Neutrophils/100 WBC (Bld) 42 % Normal 01-06 [facility] Internal Medicine (48419) Comment: PATIENT NOT FASTINGPERFORMED BY: CB [facility] [id number] [facility] [id number] Platelets #/vol 410 150-379 {x10E3/uL} Abnormal 01-19-2017 [email or web address] Internal (d) Medicine ( 50702) Comment: PATIENT NOT FASTINGPERFORMED BY: CB [facility] [id number] [facility] [id number] RBC #/vol (Bld) 4.57 3.77-5.28 {x10E6/uL} Normal 01-19-2017 [email or web address] Internal Medicine ( 11623) Comment: PATIENT NOT FASTINGPERFORMED BY: CB [facility] [id number] [facility] [id number] WBC #/vol (Bld) 7.2 3.4-10.8 {x10E3/uL} Normal 01-19-2017 [email or web address] Internal Medicine ( 13048) Comment: PATIENT NOT FASTINGPERFORMED BY: CB [facility] [id number] [facility] [id number] rapid flu (95013 x 2) Ordered By: Curly Rodriguez on 2017-01-11 FLUAV Ag IA Ql (Throat) negative Normal 2016 [facility] Internal Medicine ( 17929) amnisure rupture of membranes Ordered By: Blanket Cutting Machine Operator on 2015-08-29 AMNISURE (ROM) Negative Normal 08-29-2015 [facility] Internal Medicine (48614) Comment: Amniotic fluid not present i ndicates No Rupture of FetalMembranes at time of specimen collection. [facility] [id number] [place], [place], [id number] rom Ordered By: Syst em Forestry Conservation Worker on 2014-09-16 POSITIVE Abnormal 09-16-2014 [facility] (69770) Comment: Amniotic fluid present indic ates rupture of Membranes.RESULTS CALLED TO Jeovanny GEE 09/16/14 13 41 Arnold Cortez.REPORT READ BACK BY Jeovanny GEE . culture, urine Order ed By: Blanket Cutting Machine Operator on 2011-12-01 Bacteria identified Cx Nom See Note Normal [facility] Internal (U) Medicine ( 06759) Comment: COLONY COUNT 1000-10,000 ORG ANISM 1: MIXED GRAM POSITIVE ORGANISMS urinalysis, office (78316) Ordered By: Whitney Moreno on 2011-11-30 Bilirubin Ql (U) Negative Normal 11-30-2011 [facility] ( 74081) Glucose Test strip mass Negative Normal 2011 [facility] Internal conc (U) Medicine ( 38535) Hemoglobin Ql (U) Negative Normal 11-30-2011 [facility] Internal Medicine ( 47789) Ketones Ql (U) Small Normal 11-30-2011 Comp rehensive Internal Medicine ( 64626) Leukocyte esterase Test Moderate Normal 2011 [facility] Internal strip Ql (U) Medicin e (28002) Nitrite Ql (U) Negative Normal 11-30-2011 Comp rehensive Internal Medicine ( 41379) pH (U) 6.0 1 Normal 11-30-2011 [facility] ( 98835) Protein Ql (U) Negative Normal 11-30-2011 Comp rehensive Internal Medicine ( 28399) Specific gravity Relative 1.025 1 Normal 11-09 [facility] Internal Density (U) Medicine (72811) Urobilinogen mass/time (24H Normal Normal [facility] Internal U) Medicine ( 84398) culture, urine Order ed By: Blanket Cutting Machine Operator on 2011-03-10 Bacteria identified Culture exhibits no Normal 03-10-2011 [facility] Internal Cx Nom (U) growth. Medicine (86951) urinalysis, office (06269) Ordered By: Namrata Mcwilliams on 2011-03-09 Bilirubin Ql (U) Negative Normal 03-09-2011 [facility] ( 41550) Glucose Test strip Negative Normal 03-09-2011 [facility] Internal mass conc (U) Medici ne (31335) Hemoglobin Ql (U) Non Hemolyzed Trace Normal [facility] Medicine ( 80160) Ketones Ql (U) Negative Normal 03-09-2011 Comp rehensive Internal Medicine ( 21365) Leukocyte esterase Trace Normal 03-09-2011 [facility] Internal Test strip Ql (U) Me dicine (50282) Nitrite Ql (U) Negative Normal 03-09-2011 Comp rehensive Internal Medicine ( 22096) pH (U) 6.0 1 Normal [facility]-09-[facility] ( 12657) Protein Ql (U) Negative Normal 03-09-2011 Comp rehensive Internal Medicine ( 37611) Specific gravity 1.020 1 Normal 03-09-2011 [facility] Internal Relative Density (U) Medicine (58356) Urobilinogen mass/time Normal Normal 011 [facility] Internal (24H U) Medicine ( 59035) tsh Ordered By: Syst em Forestry Conservation Worker on 2010-12-04 Thyrotropin Qn 1.12 0.358-3.74 {uIU/mL} Normal 12-04-2010 Com prehensive Internal Medicine ( 13410) rapid flu (33301 x 2) Ordered By: Kiersten Mccormick on 2010-02-14 FLUAV Ag IA Ql (Throat) negative Normal 2009 [facility] Internal Medicine ( 73906) [facility] Ordere d By: Blanket Cutting Machine Operator on 2010-02-14 . Normal 02-14-2010 [facility] (82190) Comment: Influenza A, H1N1, RT PCRTyp e Influenza A by PCR Negative NegativeSubtype Novel H1N1 by PCR Negative N egative Viral Culture, Rapid, Influe nzaNegative:No Influenza A or B detected. TESTING PERFORMED AT [facility]. ORIGIN AL REPORT ONFILE IN LAB CONTAINS ADDITIONAL TEST SITE INFORMATION. blood glucose , office (34911) Ordered By: Kiersten Mccormick on 2010-01-24 Glucose Glucometer molar 119 1 Normal 01-24 [facility] Internal Medicine conc (dC) (09258) hepatobiliary imaging Ordered By: Blanket Cutting Machine Operator on 2009-07-17 See Note Normal 07-17-2009 [facility] (75599) Comment: Exam Number: [id number] HEPAT OBILIARY SCAN INDICATIONRight upper quadrant pain. [...] By: OREN STEPHENSON M.D. gallbladder Ordered By: Blanket Cutting Machine Operator on 2009-07-09 See Note Normal 07-09-2009 [facility] Internal [facility] (73832) Comment: Exam Number: [id number] CLINI TATY:Right upper quadrant pain. LIMITED ABDOMINAL [...] BMI (Body Mass Index) 20.06 kg/m2 10-11-2018 [facility] Internal [facility] (22426) BMI (Body Mass Index) 20.42 kg/m2 05-02-2018 [facility] (36121) BMI (Body Mass Index) 19.68 kg/m2 02-14-2018 [facility] (55946) BMI (Body Mass Index) 19.53 kg/m2 12-30-2017 [facility] (86416) BMI (Body Mass Index) 19.13 kg/m2 11-12-2017 [facility] (52140) Body Temperature 99.1 [degF] 10-11-2018 [facility] I nternal Medicine (54800) Body Temperature 97.9 [degF] 09-28-2017 - 09-28-2017 [facility] (85383) Body Temperature 97.9 [degF] 07-09-2017 [facility] I nternal Medicine (92387) Body Temperature 98.8 [degF] 01-11-2017 [facility] nternal Medicine (44485) Body Temperature 97.3 [degF] 10-24-2014 [facility] I nternal Medicine (01395) BP Diastolic 60 mm[Hg] 10-11-2018 [facility] In ternal [facility] (71282) BP Diastolic 68 mm[Hg] 05-02-2018 [facility] In [facility]al [facility] (96470) BP Diastolic 60 mm[Hg] 02-14-2018 [facility] (51855) BP Diastolic 68 mm[Hg] 12-30-2017 [facility] (64728) BP Diastolic 60 mm[Hg] 11-12-2017 [facility] (54483) BP Systolic 82 mm[Hg] 10-11-2018 [facility] (73460) BP Systolic 110 mm[Hg] 05-02-2018 [facility] (16536) BP Systolic 102 mm[Hg] 02-14-2018 [facility] (97626) BP Systolic 98 mm[Hg] 12-30-2017 [facility] (48672) BP Systolic 102 mm[Hg] 11-12-2017 [facility] (91723) BSA (Body Surface Area) 1.52 m2 10-11-2018 Comprehe nsive Internal Medicine (09836) BSA (Body Surface Area) 1.53 m2 05-02-2018 Comprehe nsive Internal Medicine (29742) BSA (Body Surface Area) 1.51 m2 02-14-2018 Comprehe nsive Internal Medicine (86418) BSA (Body Surface Area) 1.5 m2 12-30-2017 Comprehe nsive Internal Medicine (18776) BSA (Body Surface Area) 1.49 m2 11-12-2017 Comprehe nsive Internal Medicine (57898) Head Circumference 0 cm 07-04-2009 [facility] (04617) Head Circumference 0 cm 06-06-2009 [facility] (74027) Height 160.02 cm 10-11-2018 [facility]al [facility] (92857) Height 160.02 cm 05-02-2018 [facility] (23630) Height 160.02 cm 02-14-2018 [facility] (97994) Height 160.02 cm 12-30-2017 [facility] (40669) Height 160.02 cm 11-12-2017 [facility] (94373) Pulse (Heart Rate) 74 /min 10-11-2018 [facility] (60958) Pulse (Heart Rate) 65 /min 05-02-2018 [facility] (01320) Pulse (Heart Rate) 69 /min 02-14-2018 [facility] (53890) Pulse (Heart Rate) 66 /min 12-30-2017 [facility] (71575) Pulse (Heart Rate) 70 /min 11-12-2017 [facility] (30959) Pulse Oximetry 98 % 10-11-2018 [facility] (25226) Pulse Oximetry 98 % 05-02-2018 [facility] (38153) Pulse Oximetry 99 % 02-14-2018 [facility] (72864) Pulse Oximetry 98 % 12-30-2017 [facility] (96997) Pulse Oximetry 99 % 11-12-2017 [facility] (06316) Respiratory Rate 16 /min 10-11-2018 [facility] I nternal Medicine (17661) Respiratory Rate 18 /min 05-02-2018 [facility] n[facility] (65910) Respiratory Rate 18 /min 02-14-2018 [facility] n[facility] (68298) Respiratory Rate 18 /min 12-30-2017 [facility] (64057) Respiratory Rate 18 /min 11-12-2017 [facility] (83520) Weight 51.37 kg 10-11-2018 [facility] (94221) Weight 52.28 kg 05-02-2018 [facility] (12626) Weight 50.41 kg 02-14-2018 [facility] (01576) Weight 50.01 kg 12-30-2017 [facility] (26186) Weight 48.99 kg 11-12-2017 [facility] (37199) Encounters Date Type Reason Provider Location 12-30-2010 - Annotation/Addendu Unspecified Comprehen [facility] 12-30-2010 m Diagnosis Internal Medici ne 06-07-2009 - Historical Summary Comprehen [facility] 06-07-2009 Internal Medici ne 05-02-2018 - Office [...] AGEE 11-15-2018 Patient encounter Keyonna Valdez Facility: [id number] procedure Myah Hageron 11-02-2018 Patient encounter Rosalee Suh Facility:U procedure Myah Agee 10-26-2018 Patient encounter Keyonna Valdez Facility: [id number] procedure Myah Glasgow Anuel 03-21-2013 - Patient [...] generalized Compreh ensive 07-15-2017 abdominal pain Internal [facility] cine 07-14-2017 - Phone Encounter Acute generalized Compreh ensive 07-14-2017 abdominal pain Internal [facility] cine 07-13-2017 - Phone Encounter Hypokalemia Comprehensiv e 07-13-2017 Internal Medici ne 12-01-2011 - Phone Encounter Comprehensiv e 12-01-2011 Internal Medici ne 04-04-2013 - Refill Request Aneta infection Comprehe nsive 04-04-2013 (112.9) Internal Medici ne Procedures Procedure Name Date Provider Location Small Bowel Series Only 01-27-2018 - Renetta M Bonezzi Comprehe nsive Internal 01-28-2018 Medicine (76303) Esophagogastroduodenoscopy 12-17-2017 - Compr ehensive Internal 12-17-2017 Medicine (48525) Comment: Patient: JAZMINE ARRIAGA DO B: 1985 (32/F) Acct Num: [id number] Phys: Hector HENRY,Formerly [facility] N um: [id number] Loc: EN Specimen: [id number] Received: 12/17/17 - 1111 Sp ec Type: EGD BIOPSY TISSUES TISSUES: A. Duodenum, NOS B. Pylorus C. Esophageal mucous membrane D. Esophageal mucous membrane COMMENT B. The resu lts of immunohistochemistry for Helicobacter pylori will be reportedsepar penelope ([id number]). C. Glandular epithelium is not present. GROSS [...] cassette. / AM:harmony 12/17/17 TC: 3 CPT: 59977 x4 HEADER OPERATION: EGD PRE-OP DIAGNOSIS: Nausea [...] benign squamous epithelium. AM:harmony 12/20/17 Signed Cesario [facility] 12/20/17 [facility] [id number] [facility] [place], [place], [address] Operative Report 12-17-2017 - Comprehensive I nternal 12-17-2017 Medicine (64973) Urgent Care Visit Report 12-13-2017 - Compreh ensive Internal 12-13-2017 Medicine (76422) Surgery Visit Report 11-25-2017 - Comprehensi ve Internal 11-25-2017 Medicine (84008) Hepatobilliary Imaging 11-22-2017 - Myah Agee Comprehen sive Internal 11-23-2017 Medicine (57182) Hepatobilliary Imaging 08-16-2017 - Myah Anuel Comprehen sive Internal 08-16-2017 Medicine (57670) Gallbladder 07-15-2017 - Myah Agee Comprehensive In ternal 07-15-2017 Medicine (44308) tooth sx Ailyn Gravius [facility] In [facility]al Medicine (47972) Comment: 11/10/10 ttoth sx Ailyn Gravius [facility] In ternal Medicine (44733) Comment: 07/24 Plan of Treatment Plan Description Date Location Appointment Appointment 09-28-2017 - [facility] ( [address]) 09-28-2017 [facility] PYLORI [facility] 07-09-2017 Comprehe nsive Internal ANTIBODY PROFILE IgG, ANTIBODY PROFILE IgG, Medi cine (36181) IgM, IgA (64218) IgM, IgA (18390) Amylase (02510) Amylase (44653) 07-09-2017 [facility] In [facility]al Medicine (90864) Lipase (79672) Lipase (85084) 07-09-2017 [facility] (85936) Sed Rate Erythrocyte Sed Rate Erythrocyte 07-09-2017 Compre hensive Internal (54964) (63872) Medicine (78086) Metabolic Panel, Metabolic Panel, 07-09-2017 Comprehensive Internal Comprehensive (46447) Comprehensive (21354) Medi cine (81700) CBC (Auto) (70767) CBC (Auto) (92707) 07-09-2017 Comprehens [facility] Internal Medicine (19858) URINE JULIENNE CULTURE (ERINN URINE JULIENNE CULTURE (ERINN 11-30-2011 [facility] Internal COL COUNT) (88832) COL COUNT) (99524) Medicine ( 47367) URINE JULIENNE CULTURE-ERINN URINE JULIENNE CULTURE-ERINN 03-09-2011 Co m[facility] Internal COL COUNT (05062) COL COUNT (24041) Medicine (44 691) TSH (24886) TSH (22828) 12-04-2010 [facility] In ternal Medicine (84005) OVA & PARASITE DIR SMEAR OVA & PARASITE DIR SMEAR 07-04-2009 [facility] Internal (54024) (56372) Medicine (02100) OCCULT BLOOD FECES OCCULT BLOOD FECES 07-04-2009 Comprehens [facility] Internal SCREEN (35105) SCREEN (27650) Medicine (34206) LEUKOCYTE COUNT, FECAL LEUKOCYTE COUNT, FECAL 07-04-2009 [facility] Internal (68969) (39963) Medicine (28233) C-DIFFICILE, STOOL C-DIFFICILE, STOOL 07-04-2009 Comprehens char[facility] Internal (80118) (17564) Medicine (50647) JULIENNE CULTURE-STOOL JULIENNE CULTURE-STOOL 07-04-2009 Comprehensiv e Internal (02202) (57774) Medicine (86585) no information [facility] ( 75444) no information [facility] In [facility] (32812) no information [facility] (71676) no information [facility] (28318) no information [facility] (58389) no information [facility] (23303) no information [facility] (33598) no information [facility] (44389) no information [facility] (67282) no information [facility] (25880) no information [facility] (61369) no information [facility] (98180) no information [facility] (20422) no information [facility] (37834) no information [facility] (46131) no information [facility] (74173) Payers Payer Name Policy Number Location Priscilla [id number] [facility] (79807) [id number] [facility] (49270) [id number] [facility] (24988) [id number] [facility] (60261) [id number] [facility] (07064) [id number] [facility] (24852) [id number] [facility] ([address]) [facility] Breaker Tender al Medicine (20810) The following information is from the original human readable contentNo Payer Records FoundNo Payer Records FoundNo Payer Records Found Social History Type Social History Description Date Locat ion Never smoker [facility] In [facility]al Medicine (27832) Comment: occ supervisor finishing department [employer] Lives with parents, Dog, Catx2 Exercise History: Exercises regularly. Comprehen cayla Internal Medicine (56055) Tobacco use: Never smoker. [facility] In [facility] (49759) The following information is from the original [...] BE BASED ON THE PRIMARY CLINICAL RECORDS. [facility] provides no warranty or guarantee of the accuracy or completeness of information in this document. UNRECOGNIZED CONTENT PROVIDED BELOW FOR UNRECOGNIZED SECTION INFORMATION SOURCE DATE CREATED AUTHOR AUTHOR'S ORGANIZATIO N 11/15/2018 [facility] DATE CREATED AUTHOR AUTHOR'S ORGANIZATIO N 11/16/2018 [employer] DATE CREATED AUTHOR AUTHOR'S ORGANIZATIO N 12/14/2018 [facility] DATE CREATED AUTHOR AUTHOR'S ORGANIZATIO N 04/06/2019 [facility] Reynold schroeder
--- NOTE | 2019-05-13 17:21 | ED.DCSUM_ITS ---
History of Present Illness Chief Complaint: Abd Pain Informant: Patient Onset: Days Context: Gradual Onset Timing: Intermittent Current Severity: Moderate Maximum Severity: Moderate Narrative: The patient presents emergency department with tingling in her right leg. She states that she noticed a palpable lump in her right abdomen about 2 days ago. She states that she had pain which felt similar to prior ovarian cyst. However, over the past 2 days, she is noticed some tingling down her right leg. She is never had anything like this before. She denies any swelling. She denies any trauma. She denies any fevers or chills. She is had no urinary symptoms. She is on no prior history of abdominal surgery. Prior similar symptoms: No Recent Illness/Hospitalization: No Past Medical History - Allergies and Home Meds Allergies/Adverse Reactions: Allergies ciprofloxacin HCl [From Cipro] Allergy (Verified 05/13/19 16:55) Anaphylaxis amoxicillin Adverse Reaction (Verified 05/13/19 16:55) Nausea Primary Care Physician: Myah Badillo DO [Primary Care Provider] - Prior records reviewed: Yes Surgical History: no surgical history Lives: With Family Smoking Status: Never smoker Alcohol: None Drugs: None Review of Systems General: Denies: Chills, Fever, Sweats Eyes: Denies: Visual changes - bilaterally, Diplopia ENT: Denies: Rhinorrhea, Sore throat Cardiovascular: Denies: Chest pain, Palpitations Respiratory: Denies: Dyspnea, Cough, Dyspnea on exertion Gastrointestinal: Reports: Abdominal pain. Denies: Nausea, Vomiting, Diarrhea, Melena, Hematochezia Genitourinary: Denies: Dysuria, Hematuria, Frequency Musculoskeletal: Reports: Arthralgias. Denies: Back pain, Extremity Pain Skin: Denies: Rash, Wounds Neurological: Reports: Parasthesia. Denies: Headache, Weakness, Numbness Psych: Denies: Depression Endocrine: Denies: Polyuria Hematologic: Denies: Easy bruising Allergy: Denies: Uticaria Physical Exam Vital Signs/Narrative: Vital Signs Temp Pulse Resp BP Pulse Ox 05/13/19 16:50 98.0 F 100 15 115/74 98 Inital Vital Signs reviewed: Yes General: Well nourished, Well developed, No Acute Distress Head: Normocephalic, Atraumatic Eyes: Perrl, EOMI ENT: Moist mucous membranes, No rhinorrhea Neck: Supple, Nontender Cardiovascular: Regular rate, Regular rhythm, No murmurs Respiratory: No distress, CTA bilaterally, Chest nontender Abdomen: Soft, Nontender, Nondistended, Normal bowel sounds Back: Nontender, Normal Inspection Extremities: Nontender, No edema Skin: Normal color, No rash Neurological: Alert, Oriented x3, Cranial nerves II-XII grossly intact, Normal Strength, Normal Sensation Psychological: Normal affect, Normal Mood Diagnostic/Tx/Re-eval Clinical Impression(s) from Imaging Studies Abdomen/Pelvis CT 05/13/19 17:00 IMPRESSION: Contracted thick-walled gallbladder without calcified stones possibly physiologic. If concern for gallbladder disease ultrasound recommended Left ovarian cyst with trace of fluid in the cul-de-sac possibly due to ovulation. Electronically Signed: Bonifacio Torrez MD at 19:15 EDT , Service support , Abnormal Lab Results 05/13/19 05/13/19 05/13/19 17:10 17:10 17:15 WBC 6.7 RBC 4.10 L Hgb 12.1 Hct 37.7 MCV 92.0 MCH 29.5 MCHC 32.1 RDW 12.8 RDW Differential 43.4 Plt Count 401 MPV 8.9 Immature Gran % (Auto) 0.100 Neut % (Auto) 50.2 Lymph % (Auto) 42.1 H Mcclain % (Auto) 5.5 Eos % (Auto) 1.5 Baso % (Auto) 0.6 Absolute Neuts (auto) 3.3 Absolute Lymphs (auto) 2.81 Total Counted Not Reportable Sodium 142 Potassium 3.4 L Chloride 106 Carbon Dioxide 30.0 Anion Gap 6 BUN 7 Creatinine 0.82 Estim Creat Clear Calc 78.30 Est GFR (MDRD) Af Amer 104 Est GFR (MDRD) Non-Af 86 BUN/Creatinine Ratio 8.5 L Glucose 93 Calcium 8.6 Total Bilirubin 0.40 AST 17 ALT 18 Alkaline Phosphatase 63 Total Protein 7.1 Albumin 3.7 Globulin 3.4 Albumin/Globulin Ratio 1.1 Urine Color Yellow Urine Clarity Clear Urine pH 8.0 Ur Specific Brainard 1.010 Urine Protein Negative Urine Glucose (UA) Normal Urine Ketones Negative Urine Occult Blood Negative Urine Nitrite Negative Urine Bilirubin Negative Urine Urobilinogen Normal Ur Leukocyte Esterase Negative Urine RBC 0 SEEN Urine WBC 0 SEEN Ur Squamous Epith Cells 0-5 SEEN Urine Bacteria 0 SEEN Urine Mucus 0 SEEN Urine Test Negative - Medical Decision Making The patient had abdominal pain 3 days ago and is now having paresthesias in her right leg. She has normal pulses. Compartments are soft. There is no palpable cords. She has no asymmetric edema. She had no chest pain or dyspnea. Screening labs obtained were unremarkable. The patient was given fluids. She has no weakness of the leg. She states that she felt a lump in her pubic area. These do feel like a lymph nodes. I did obtain a CT of abdomen pelvis. It does show a left-sided ovarian cyst with some small fluid. My suspicion is that she likely had rupture 2 days ago which caused her pain. I am unclear of the etiology of her paresthesias, but she has full motor function, vascular function, and no evidence of DVT. I do not suspect this to be dangerous. I do feel that she is safe for outpatient follow-up. She is comfortable with this plan of care. ED Disposition - Plan for ED Patient: Disposition: Home or Assisted Living Diagnosis: Ovarian cyst, Paresthesia of right leg Instructions: Ovarian Cyst, Paraesthesias Referrals: Myah Badillo DO [Primary Care Provider] -
[2019-05-13 17:24] LABS: Absolute Lymphocyte Count 2.81 X10^3/ul (0.83-4.51); Absolute Neutrophil Count 3.3 X10^3/uL (2.0-7.7); Basophil# 0.04 X10^3/uL; Basophil% 0.6 % (0-1); Eosinophils% 1.5 % (0-5); Hematocrit 37.7 % (37-47); Hemoglobin 12.1 g/dl (12.0-15.0); Lymphocyte # 2.81 X10^3/ul (4.0); Lymphocyte % 42.1 % (19-41); Mean Corp Hgb Conc 32.1 g/gl (32-36); Mean Corpuscular Hgb 29.5 pg (27.0-32.0); Mean Platelet Vol. 8.9 fl (6.2-12.0); Monocyte# 0.37 X10^3/uL; Monocyte% 5.5 % (0-10); Neutrophil # 3.34 X10^3/uL (2.7-7.7); Neutrophil % 50.2 % (47-70); Platelet Count 401 K/mm3 (150-450); RBC Distribution Width CV 12.8 % (11.6-14.6); RBC Distribution Width SD 43.4 fl (35.1-43.9); White Blood Count 6.7 K/mm3 (4.4-11.0)
[2019-05-13 17:26] LABS: POSITIVE COUNT NO; POSITIVE DIFFERENTIAL NO; POSITIVE MORPHOLOGY NO
[2019-05-13 17:31] LABS: Bacteria 0 SEEN /hpf (None Seen); Mucous, Urine 0 SEEN /hpf (<or=2+); Red Blood Cells-Urine 0 SEEN /hpf (0-5); White Blood Cells 0 SEEN /hpf (0-5)
[2019-05-13 17:35] LABS: Internal QC Validated? YES +Cl - CLEAR BKGD
[2019-05-13 17:36] LABS: Pregnancy, Urine Negative Negative
[2019-05-13] MEDS: 0.9% Normal Saline 1,000 ML 1000 ML IV (17:36)
[2019-05-13 17:38] LABS: Color, Urine Yellow (Yellow); Glucose, Dipstick Normal (Normal); Ketone-Dipstick Negative (Negative); Leukocyte Esterase-Dipstick Negative /ul (Negative); Nitrite-Dipstick Negative (Negative); Occult Blood-Urine Negative /ul (Negative); Protein-Dipstick Negative (Negative); Urine Bilirubin Dipstick Negative (Negative); Urine Clarity Clear (Clear); Urine Urobilinogen Normal (Normal)
[2019-05-13 17:40] LABS: Squamous Epithelial Cells - UA 0-5 SEEN /hpf (5-10)
[2019-05-13 17:44] LABS: ALB/GLOB Ratio 1.1 RATIO (0.9-2.4); AST(SGOT) 17 U/L (15-37); Alanine Aminotransfer ALT/SGPT 18 U/L (13-56); Albumin, Serum 3.7 g/dL (3.2-5.0); Alkaline Phosphatase 63 U/L (45-117); Anion Gap 6 (5-15); BUN 7 mg/dL (7-18); BUN/Creat Ratio 8.5 RATIO (10-20); Calcium,Total 8.6 mg/dL (8.5-10.1); Chloride 106 mmol/L (98-107); Creatinine, Serum 0.82 mg/dL (0.55-1.02); EST Glomerular Filtration Rate 86 mL/min (>60); Est Glom Filt Rate - Afr Amer 104 mL/min (>60); Globulin 3.4 g/dL (2.2-4.2); Glucose 93 mg/dL (74-106); Potassium 3.4 mmol/L (3.5-5.1); Protein, Total 7.1 g/dL (6.4-8.2); Sodium Level 142 mmol/L (136-145)
[2019-05-13 19:06] VITALS: BP 117/77; PULSE 66; RESP 16; O2SAT 100
== END 2019-05-13 19:32 | disposition home or self-care (01) ==
PROVIDERS: Emergency Provider Emergency Medicine; Family Provider Internal Medicine; PCP Internal Medicine
DX: N83.202 Unspecified ovarian cyst, left side (principal); R20.2 Paresthesia of skin
CPT/HCPCS: 74177; 80053; 81001; 81025; 85025; 96360; 96361; 99284; J7030; Q9967; A4216

== ENCOUNTER 2019-09-28 07:48 | Day surgery (SDC) | payer BC, SELFPAY ==
--- NOTE | 2019-09-26 10:38 | HP.PCM_ITS ---
History and Physical Date of Admission: 09/28/19 Chio Cox Physician NURSE SITTER H&P Addendum Encounter Date: 09/11/2019 Expand All Collapse All Hide copied text Cielo for details Jazmine Garcia is a 33 year old female who presents for AUB. Patient reports over the summer had minimal menses and then in July had very heavy painful menses. Patient reports that she was passing large clots. She was changing her tampon at least every hour. Patient also reports increase in facial cystic acne. 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 As a child her cycles were very irregular and heavy. Patient cannot take combined oral contraceptives due to her factor V Leiden mutation. She reports she has tried Mirena before and felt very jittery and anxious on it. Patient declines any hormones at this time. With a history of a possible uterine anomaly I do not recommend an intrauterine device. On the ultrasound also showed a possible endocervical polyp. Patient wants to proceed with hysteroscopy D&C for abnormal uterine bleeding possible endometrial polyp. ? PAST MEDICAL HISTORY PAST MEDICAL HISTORY Diagnosis Date ? Anemia ? ? Factor V Leiden mutation (HCC) ? ? FRACTURE ? ? ANKLE ? IBS (irritable bowel syndrome) ? ? Lactose intolerance ? ? Thyromegaly 02/03/2016 ? PAST SURGICAL HISTORY PAST SURGICAL HISTORY Procedure Laterality Date ? ORAL SURGERY PROCEDURE ? ? ? [place] ? PAST SURGICAL HISTORY OF ? ? ? RIGHT ANKLE ? FAMILY HISTORY FAMILY HISTORY Problem Relation Age of Onset ? Hypertension Mother ? ? Lipids Mother ? ? Seizures Father ? ? DUE TO ACCIDENT ? Blood Disease Father ? ? FACTOR V LEIDEN ? Alcohol/Drug Maternal Grandfather ? ? Diabetes Maternal Grandfather ? ? Heart Paternal Grandfather ? ? Aneurysm Paternal Grandfather ? ? BRAIN ? Alzheimer's Disease Other ? ? MGGM ? Blood Disease Brother ? ? FACTOR V LEIDEN ? SOCIAL HISTORY Social History ? Tobacco Use ? Smoking status: Never Smoker ? Smokeless tobacco: Never Used Substance Use Topics ? Alcohol use: No ? Drug use: No ? ? Current Outpatient Medications: promethazine (PHENERGAN) 25 mg tablet Take 25 mg by mouth every 6 hours as needed. pantoprazole sodium (PANTOPRAZOLE ORAL) Take 40 mg by mouth. metoclopramide HCl (REGLAN) 5 mg tablet Take 5 mg by mouth as needed. norethindrone (AYGESTIN) 5 mg tablet 1 tablet TID until bleeding stops, then 1 tablet BID x 3 days, then 1 tablet daily x 3 days (Patient not taking: Reported on 06/20/2019 ) busPIRone (BUSPAR) 15 mg tablet Take 15 mg by mouth as needed. RANITIDINE HCL (ZANTAC ORAL) Take 1 tablet by mouth as needed. ? No current facility-administered medications for this visit. Allergies As of Date: 09/11/2019 Allergen Noted Reaction CIPROFLOXACIN 12/31/2011 Mental Status Change and Anaphylaxis AMOXICILLIN 03/27/2019 Vomiting GLUTEN 04/05/2018 GI Upset ? Fully Assessed 09/11/2019 ? ? REVIEW OF SYSTEMS Abdomen: No abdominal pain, nausea, vomiting, diarrhea, or constipation. Bladder: no dysuria .. Expanded ROS: GENERAL: Negative for fever Allergies and current medication updated:Yes ? EXAM: BP 100/62 Ht 5' 3 (1.60m) Wt 116 lb (52.6kg) LMP 08/20/2019 BMI 20.55 kg/(m^2). ? GENERAL: pleasant, female in no apparent distress HEENT: Normocephalic, atraumatic, mucus membranes moist and no lesions NECK: Supple, full range of motion, no adenopathy and thyroid normal DERMATOLOGY: Normal, without lesions, non-icteric and non-hirsute CARDIAC: regular rate and rhythm LUNGS: clear to auscultation NEURO: alert and oriented x3,exam grossly non-focal ? ? IMPRESSION: 1. ?The appearance of the ovaries is suggestive for polycystic ovaries. 2. ?As suggested previously findings suggest bicornuate or septate uterus 3. ?Nodular density in the endocervical canal noted may represent a polyp. Clinical Academic Allergist: JACE ? Transcribe Date/Time: Jun 23 2019 12:45P Dictated by : OSVALDO BECERRA, DO This examination was interpreted and the report reviewed and electronically signed by: OSVALDO BECERRA DO on Jun 23 2019 12:49PM ?EST Results-Findings ? * * *Final Report* * * DATE OF EXAM: Jun 23 2019 12:13PM ? WRU ? 1060 ?- ?US FEMALE PELVIS TRANSVAG ?/ PROCEDURE REASON: Irregular menstrual cycle ?? ? * * * * Physician Interpretation * * * * ?EXAMINATION: ? TRANSVAGINAL AND LIMITED TRANSABDOMINAL PELVIC ULTRASOUND HISTORY: ? Irregular menstrual cycle TECHNIQUE: Sonography of the pelvis was performed by transvaginal and transabdominal (limited) techniques.Images were obtained and stored in a permanent archive. MQ: ?UFP_1 COMPARISON: Ultrasound 03/25/2016 FLMP: 05/06/2019 RESULT: Uterus size: 9.8 x 3.5 x 6.3 cm ? 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 ?2 endometrial canals are identified. ?? ? -Orientation: Anteverted ?? ? -Myometrium: Normal ?? ? -Endometrial echo complex: 0.9 cm ?? ? -Cervix: There is a nodular density in the endocervical canal. ?It measures 4 mm in diameter. Right ovary: 4.3 x 2.0 x 3.7 cm Left ovary: 5.0 x 1.9 x 3.8 cm There are multiple simple cysts around the outside margin of each ovary. ? Most of these are subcentimeter less in size. ?One on the LEFT side measures 1.6 cm. Pelvis free fluid: Small amount of posterior cul-de-sac ? ? ASSESSMENT AND PLAN: Encounter Diagnosis ? ? ICD-10-CM ? 1. Abnormal uterine bleeding (AUB) N93.9 TESTOSTERONE, FREE AND TOTAL ? ? DHEA-S BLD ? ? LUTEINIZING HORMONE ? ? FSH BLD 2. Polycystic ovaries E28.2 TESTOSTERONE, FREE AND TOTAL ? ? DHEA-S BLD ? ? LUTEINIZING HORMONE ? ? FSH BLD ? 3. Pt has been counseled on risks/benefits and alternatives of surgery including but not limited to anesthesia, bleeding, infection, uterine perforation with injury to pelvic structures including bowel, bladder, and vessels. Pt wishes to proceed with surgery at this time. 4. Discussed if menses continue to be heavy/irregular consider Ablation if she declines further hormonal treatment - not candidate for combine ocps - has tried Mirena in past- with uterine anomaly not recommended. ? FTFC >22min with more than 50% of this time spent counseling the patient Chio Brown MD ?3:57 PM Office Visit on 09/11/2019 Revision History
[2019-09-28] VITALS (7 sets, daily range): BP systolic 96–108; BP diastolic 60–74; PULSE 63–625; RESP 12–16; TEMP 36.4–37.1; O2SAT 98–100
[2019-09-28] MEDS: Lactated Ringers 1,000 ML 100 ML IV (08:38)
[2019-09-28 08:40] LABS: Hematocrit 36.5 % (37-47); Hemoglobin 11.5 g/dL (12.0-15.0); Mean Corp Hgb Conc 31.5 g/dL (32-36); Mean Corpuscular Hgb 27.5 pg (27.0-32.0); Mean Corpuscular Volume 87.3 fL (81-99); Mean Platelet Vol. 9.3 fl (6.2-12.0); Platelet Count 332 K/mm3 (150-450); RBC Distribution Width CV 12.8 % (11.6-14.6); RBC Distribution Width SD 40.6 fl (35.1-43.9); Red Blood Count 4.18 M/mm3 (4.2-5.4); White Blood Count 5.5 K/mm3 (4.4-11.0)
[2019-09-28 08:47] LABS: Internal QC Validated? YES +Cl - CLEAR BKGD; Pregnancy, Urine Negative Negative
--- NOTE | 2019-09-28 09:25 | EMB_PTH ---
PATIENT: BRENNEN ARRIAGA LOC: [facility] [place] U#:[id number] AGE/SX: 33/F ROOM: RE09/28/[address]: Dr. Chio Brown, MDDOB: 1985 BED: DIS: 09/28/2019 SPEC #: [id number] RECD: 09/28/19 12:18 STATUS: TRANG GEORGETTE #: [id number] JERAMY: 09/28/19 09:[address]: Chio Brown DEPT: SURGICAL PATHOLOGY RECD BY: Keyon Jaramillo ENTERED: 09/28/19 13:07 SP TYPE: ENDOM BX/C OTHR DR: Dr. Myah Badillo, Tissues: Endometrium, NOS Procedures: Surgery Specimen Level IV HEADER OPERATION: Hysteroscopy, D & C Symphion PRE-OP DIAGNOSIS: Abnormal uterine bleeding; polycystic ovaries TISSUE SUBMITTED: Endometrial curettings and polyp MICROSCOPIC DIAGNOSIS Endometrial polyp and curettings: Polypoid fragments of proliferative endometrium. Chronic endometritis. AM:harmony 09/29/19 MICROSCOPIC DESCRIPTION Slides are reviewed. GROSS DESCRIPTION Received in fixative is one container labeled with the patient's name and designated endometrial curettings and polyp. The specimen consists of multiple irregular fragments of quinonez-pink soft tissue that in aggregate measure 3 x 2.5 x 0.3 cm. The entire specimen is submitted in one cassette. / MICAH:harmony 09/28/19 TC:3 CPT: 25434
--- NOTE | 2019-09-28 10:25 | OP.PCM_ITS ---
Report of Operation Date of Procedure: 09/28/19 Pre-Operative Diagnosis: AUB, uterine anomaly, endocervical polyp Post-Operative Diagnosis: same, normal appearing uterine cavity. Surgery/Procedure Performed:: Hysteroscopy, D&C, Polypectomy with symphion Description of Surgical Findings:: both tubal ostia visualized, polypoid tissue noted on left latera aspect of uterus manager heavy equipment: teri watkins Type of Anesthesia:: MAC Specimen's removed: EMC and endometrial polypoid tissue Drains: none Estimated Blood Loss (mL): 10 Fluids Replaced: 900 Description of Procedure: Informed consent was obtained the patient was taken the operating room she was placed in supine position. She was given anesthesia. She was then placed in the [facility] where she was prepped and draped in the normal sterile fashion. At this time the weighted speculum was placed in the posterior fornix of vagina. Single-tooth tenaculum was used to gently grasp the anterior lip the cervix. At this time the uterine cavity was sounded to approximately 9 cm. Gentle dilatation was performed once adequate dilatation of the cervix was achieved the hysteroscope using normal saline as a distention medium was placed. abundant Endometrial tissue with polypoid appearing tissue. Otherwise no gross abnormalities. Tubal ostia visualized. cavity did not appear to have septum or be bicorunate in nature. This time hysteroscopy was complete. Symphion resector used to removed polypoid tissue and collect endometrial sampling This will be sent to pathology for evaluation. gentle sharp curettage at endocervix where there was increased tissue difficult to get with symphion resector was performed. Procedure was deemed complete successful there are no complications. Anticipated normal postoperative course. Instrument lap count correct ?2. fluid deficit 200cc Vaginal Sweep was negative. Grafts/Implants Used: none - Complications none - Admit VTE Documentation VTE Present on Admission: Yes VTE Mechan Device Prophylaxis: SCD's VTE Pharm Prophylaxis ordered?: No
--- NOTE | 2019-09-28 10:33 | DCINST_ITS ---
Discharge Diet: No Restrictions Discharge Activity: Return to Normal Activity, May Shower, May Take a Tub Bath - in 2 weeks. Allergies/Adverse Reactions: Allergies ciprofloxacin HCl [From Cipro] Allergy (Verified 09/28/19 08:28) Anaphylaxis amoxicillin Adverse Reaction (Verified 09/28/19 08:28) Nausea Medications to take at Discharge pantoprazole 40 mg tablet,delayed release 40 mg PO QDAY 11/25/17 Promethazine HCl 25 mg PO PRN PRN 09/21/19 Primary Care Physician: Myah Badillo DO [Primary Care Provider] - Test Results: Test results from this visit will be discussed in further detail at your follow- up appointment, if applicable.
== END 2019-09-28 12:02 | disposition home or self-care (01) ==
LOC: SDC 07:49 → AC 07:50
PROVIDERS: Family Provider Internal Medicine; PCP Internal Medicine; Referring Provider Obstetrics & Gynecology; Visit Provider Obstetrics & Gynecology
PROC: 0UB98ZZ Excision of Uterus, Via Natural or Artificial Opening Endoscopic (ICD-10-PCS; CPT 58558; principal; 2019-09-28 09:10)
DX: N93.9 Abnormal uterine and vaginal bleeding, unspecified (principal); Q51.9 Congenital malformation of uterus and cervix, unspecified; N84.1 Polyp of cervix uteri; N71.1 Chronic inflammatory disease of uterus; K21.9 Gastro-esophageal reflux disease without esophagitis; D68.51 Activated protein C resistance; E28.2 Polycystic ovarian syndrome; Z79.899 Other long term (current) drug therapy
CPT/HCPCS: 58558; 81025; 85027; 88305; J7120; J2405

== ENCOUNTER → 2021-11-06 14:18 | Outpatient (CLI) | payer BC, SELFPAY ==
--- NOTE | 2021-11-06 14:20 | RAD_ITS ---
STUDY: X-RAY CHEST REASON FOR EXAM: Female, 35 years old. day 9 of covid, feeling worse with chest pain and productive cough, light-headed TECHNIQUE: PA and lateral views of the chest. COMPARISON: None. FINDINGS: The lungs are clear and expanded. There is no demonstrated pleural abnormality. Normal size heart. Normal mediastinum and malinda. Normal visualized pulmonary arteries. Normal visualized aortic arch and descending thoracic aorta. Normal visualized thoracic spine. Normal visualized ribs, clavicles, and shoulders. There is no demonstrated abnormality of the visualized soft tissue structures of the upper abdomen. RAD/Chest PA and Lateral IMPRESSION: No airspace consolidation. Electronically Signed: Juan Carlos Estrada MD (Brooks) at 14:40 EST , Service support ,
== END ==
PROVIDERS: PCP Internal Medicine; Referring Provider Physician Assistant Medical; Visit Provider Physician Assistant Medical
DX: U07.1 COVID-19 (principal); R06.02 Shortness of breath; D68.51 Activated protein C resistance; J06.9 Acute upper respiratory infection, unspecified
CPT/HCPCS: 36415; 71046; 85379

== ENCOUNTER 2021-11-06 20:16 | Emergency (ER) | payer BC, SELFPAY ==
[2021-11-06 20:18] VITALS: BP 120/77; PULSE 73; RESP 14; TEMP 36.6; O2SAT 100; BMI 21.2
[2021-11-06 20:58] VITALS: O2SAT 100
[2021-11-06 21:12] VITALS: BP 118/78; PULSE 64; RESP 15; O2SAT 100
--- NOTE | 2021-11-06 22:38 | EX.ED.VIS.UR ---
HPI HPI - URI History of Present Illness Chief Complaint: Shortness of Breath Narrative Narrative: Patient currently on day nine of COVID-19 symptoms. She states that for the most part she has a little bit of dyspnea on exertion but is not having any fevers, chills, body aches currently. She was seen at the urgent care earlier and she has a history of factor V Leiden so they did check a D-dimer and called her and told her this was elevated and she needed to come to the emergency room. Patient was prescribed dexamethasone today which she has not taken. Patient denies any history of DVT/PE. She states she feels otherwise well. ROS ROS ED Constitutional Constitutional ED: Denies chills or fever(s) Eyes Eyes: Denies blurry vision or change in vision ENT ENT ED: Denies rhinorrhea or sore throat Cardiovascular Cardiovascular: Denies chest pain Respiratory/Chest Respiratory/Chest: Reports cough and dyspnea Gastrointestinal Gastrointestinal: Denies abdominal pain, nausea or vomiting Genitourinary Genitourinary ED: Denies dysuria Musculoskeletal Musculoskeletal: Denies arthralgias or myalgias Integumentary Denies Abrasions or rash Neurologic Neurologic: Denies headache(s) or paresthesias PFSH PFSH Medical History Abdominal pain Acid reflux Anxiety Diarrhea Factor 5 Leiden mutation, heterozygous history right ankle surgery (~2008) Nausea & vomiting Home Medications pantoprazole 40 mg tablet,delayed release 40 mg PO QDAY 11/25/17 [History Last Taken 09/28/19] promethazine 25 mg PO PRN PRN 09/21/19 [History Last Taken Unknown] dexamethasone 6 mg tablet 6 mg PO DAILY #10 tab 11/06/21 [Rx Last Taken Unknown] Allergy/AdvReac Type Severity Reaction Status Date / Time ciprofloxacin HCl Allergy Anaphylaxis Verified 11/06/21 20:17 [From Cipro] amoxicillin AdvReac Nausea Verified 11/06/21 20:17 Family History Father Bleeding disorder Brother Bleeding disorder Grandfather Diabetes Heart disease High cholesterol Grandmother High cholesterol Hypertension Mother High cholesterol Hypertension Social History Smoking Status: Never smoker alcohol intake: never substance use type: does not use EXAM Physical Exam Const Vital Signs: 11/06/21 20:18 11/06/21 20:58 11/06/21 21:12 Temperature 98 F Temperature Source Temporal Pulse Rate 73 64 Respiratory Rate 14 15 Respiratory Effort Normal Non-Labored Respiratory Depth Normal Respiratory Pattern Normal Blood Pressure 120/77 118/78 Blood Pressure Mean 91 Pulse Ox 100 100 Oxygen Delivery Method Room Air Room Air Positive well nourished General Appearance ED: NAD; Negative for pallor HEENT Reports moist mucous membranes normocephalic and atraumatic Eyes PERRL and EOMs intact bilaterally Neck no lymphadenopathy, supple and no meningeal signs Resp normal respiratory effort and clear to auscultation bilaterally Cardio Rate: regular rate Rhythm: regular rhythm Extremity normal to inspection; Negative for full ROM General Extremety ED: Negative for cyanosis or tenderness General Extremity: Negative for cyanosis Neuro oriented x3 and CN's II-XII intact bilaterally Sensorium / Orientation: alert Sensory Exam: sensory level loss detected Motor Exam: strength 5/5 throughout Psych mental status grossly normal Skin General Skin Exam: Negative for jaundice or pallor MDM MDM MDM Narrative Medical decision making narrative: Patient presenting because she had an elevated D-dimer in the face of having Covid as well as factor V Leiden history but has no history of DVT or PE. I reviewed the medical record and her D-dimer was 0.5 and for this reason they sent her to the emergency room. Since this is not elevated I do not believe she needs a CTA of the chest. Technically she would be PERC negative as well, although she does have the risk factor of Covid. Her vital signs are completely normal and her oxygen is 100% on room air. She was not referred for monoclonal antibodies however tomorrow be her last day given that she is doing well with a negative D-dimer I suspect she will likely do well with Covid. Patient counseled on this. I did tell her not to take her steroids as she does not need them. She can take her promethazine if wanted. She is counseled to follow-up with her PCP to ensure resolution she is given return precautions. Impression: #1. COVID-19 Lab Data Attestation: I reviewed the patient's lab results. Discharge Plan Triage Chief Complaint: Shortness of Breath ED Provider: Kleber Jackson Dx/Rx/DC Orders Instructions: Coronavirus Disease 2019 (COVID-19): Caring for Yourself or Others Prescriptions: No Action pantoprazole 40 mg tablet,delayed release (DR/EC) 40 mg PO QDAY RF: 0 dexamethasone [Decadron] 6 mg tablet 6 mg PO DAILY Qty: 10 RF: 0 promethazine 12.5 MG tablet 25 mg PO PRN PRN (Reason: Nausea) RF: 0 Primary Care Provider: Myah Badillo Referrals: Myah Badillo DO [Primary Care Provider] - Disposition Disposition: Home, Self Care Discharge Date/Time: 11/06/21 21:14
== END 2021-11-06 21:14 | disposition home or self-care (01) ==
PROVIDERS: Emergency Provider Student in an Organized Health Care Education/Training Program; PCP Internal Medicine
DX: U07.1 COVID-19 (principal); D68.51 Activated protein C resistance; K21.9 Gastro-esophageal reflux disease without esophagitis; F41.9 Anxiety disorder, unspecified; Z79.899 Other long term (current) drug therapy
CPT/HCPCS: 99283; A4216

== ENCOUNTER 2021-11-13 15:17 | Outpatient (CLI) | payer BC, SELFPAY ==
--- NOTE | 2021-11-13 15:22 | CT_ITS ---
STUDY: CTA CHEST REASON FOR EXAM: Female, 36 years old. Resent COVID, shortness of breath and chest pain RADIATION DOSAGE (If Supplied By Facility): CTDIvol = ( 5.99 ) mGy, DLP = ( 152.46 ) mGycm TECHNIQUE: The examination was performed with the intravenous administration of IV 100mL Isovue-370. Post-processing of the angiographic images was performed, with multiplanar reformation and 3D reconstruction. Individualized dose optimization techniques were used for this CT. COMPARISON: None. FINDINGS: Normal enhancement of the main pulmonary artery and right and left pulmonary arteries. Normal enhancement of the bilateral peripheral pulmonary arteries. There is no demonstrated pulmonary embolism. Normal thoracic aorta and visualized great vessels. There is no demonstrated aortic dissection. Normal heart and pericardium. Normal mediastinum. Normal hilar regions. Normal visualized trachea and bronchi. The lungs are well expanded. Normal pulmonary parenchyma. Normal pleura. Normal chest wall structures. Normal osseous structures. Normal visualized upper abdomen. CT/CTA Chest W/WO Contrast IMPRESSION: No central or segmental pulmonary embolism. Electronically Signed: Juan Carlos Estrada MD (Brooks) at 16:51 EST , Service support ,
== END 2021-11-13 23:59 | disposition short-term general hospital (02) ==
LOC: CT 15:19
PROVIDERS: PCP Internal Medicine; Referring Provider Internal Medicine; Visit Provider Internal Medicine
DX: R06.02 Shortness of breath (principal)
CPT/HCPCS: 71275; Q9967

== ENCOUNTER 2021-12-09 09:50 | Outpatient (CLI) | payer BC, SELFPAY ==
--- NOTE | 2021-12-09 11:59 | PFTCOMP_ITS ---
COMPLETE PULMONARY FUNCTION TEST INTERPRETATION Brief HPI: Patient is a 36 year old female, currently under the care of Dr. Badillo, who presents to [facility] for complete pulmonary function tests secondary to diagnosis of dyspnea. Respiratory therapist reports good effort and reproducible results. Interpretation: Forced expiration spirometry shows no large airways obstructive ventilatory defect with an FEV1 of 97% predicted. There is no significant bronchodilator response by strict ATS criteria. Spirograms are of good quality and plateau normally. The respiratory flow volume loop shows a normal pattern. Lung volumes by body plethysmography show a normal total lung capacity at 5.84 L, 115% predicted. All other lung volumes are within normal limits. Diffusion capacity by carbon monoxide is normal at 87% predicted. The airway resistance is normal. No previous pulmonary function tests were available for review. Impression: Grossly normal pulmonary function test. Decreased following bronchodilators could be suggestive of bronchomalacia or fatigue from testing. Consider bronchoprovocation study if asthma is a consideration.
== END 2021-12-09 23:59 | disposition short-term general hospital (02) ==
LOC: PSN 09:52
PROVIDERS: PCP Internal Medicine; Referring Provider Internal Medicine; Visit Provider Internal Medicine
DX: R06.02 Shortness of breath (principal)
CPT/HCPCS: 94060; 94726; 94729

== ENCOUNTER → 2022-11-24 | Outpatient (CLI) | payer BC, SELFPAY ==
--- NOTE | 2022-11-24 12:45 | NM_ITS ---
CLINICAL: 37-year-old female with history of chronic nausea and early satiety. SEMI-SOLID PHASE 99m Tc SULFUR COLLOID GASTRIC EMPTYING STUDY COMPARISON: None available FINDINGS: The patient was administered 1.0 mCi of 99m Tc sulfur colloid mixed with oatmeal and consumed per os. Image acquisitions in the anterior-posterior projections were obtained for 60 minutes. There is prompt visualization of the stomach. There is no gastroesophageal reflux identified. First order kinetics are maintained throughout the duration of the acquisitions. The T ? linear fit was calculated to be 85.22 minutes, (Normal: 12-56 minutes). NM/Gastric Emptying Study IMPRESSION: 1. ABNORMAL 99m Tc sulfur colloid semi-solid phase (oatmeal) gastric emptying imaging examination. A. There is delayed semi-solid phase gastric emptying compared to normal controls with maintained first order kinetics throughout all components of the examination. (Ahmet et al, J Nucl Med Tech 38: 186, 2010). Electronically Signed: Osmin Brizuela, at 21:44 EST ,
== END | disposition home or self-care (01) ==
PROVIDERS: PCP Internal Medicine; Referring Provider Internal Medicine; Visit Provider Internal Medicine
DX: R11.0 Nausea (principal)
CPT/HCPCS: 78264; A9541

== ENCOUNTER → 2023-01-28 | Outpatient (CLI) | payer BC, SELFPAY ==
[2023-01-28 11:33] LABS: Erythrocyte Sedimentation Rate 3 mm/hr (0-30)
[2023-01-28 11:37] LABS: Absolute Lymphocyte Count 2.06 X10^3/uL (0.83-4.51); Absolute Neutrophil Count 2.5 X10^3/uL (2.0-7.7); Basophil# 0.05 X10^3/uL; Eosinophil# 0.11 X10^3/uL; Eosinophils% 2.2 % (0-5); Hematocrit 36.3 % (37-47); Hemoglobin 11.6 g/dL (12.0-15.0); Lymphocyte # 2.06 X10^3/ul (0.83-4.51); Lymphocyte % 40.4 % (19-41); Mean Corpuscular Hgb 28.8 pg (27.0-32.0); Mean Corpuscular Volume 90.1 fL (81-99); Mean Platelet Vol. 9.7 fl (6.2-12.0); Monocyte# 0.34 X10^3/uL; Monocyte% 6.7 % (0-10); NRBC Flagged by Analyzer 0 % (0-5); Neutrophil # 2.53 X10^3/uL (2.7-7.7); Neutrophil % 49.5 % (47-70); Platelet Count 279 K/mm3 (150-450); RBC Distribution Width CV 12.8 % (11.6-14.6); RBC Distribution Width SD 42.3 fl (35.1-43.9); Red Blood Count 4.03 M/mm3 (4.2-5.4); White Blood Count 5.1 K/mm3 (4.4-11.0)
[2023-01-28 11:46] LABS: AST(SGOT) 37 U/L (15-37); Alanine Aminotransfer ALT/SGPT 45 U/L (13-56); Albumin, Serum 3.7 g/dL (3.2-5.0); Alkaline Phosphatase 70 U/L (45-117); Anion Gap 4 (5-15); BUN 7 mg/dL (7-18); BUN/Creat Ratio 10.1 RATIO (10-20); CRP < 2.90 mg/L (0.0-3.0); Calcium,Total 8.9 mg/dL (8.5-10.1); Chloride 107 mmol/L (98-107); Creatinine, Serum 0.69 mg/dL (0.55-1.02); EST Glomerular Filtration Rate 103 mL/min (>60); Est Glom Filt Rate - Afr Amer 124 mL/min (>60); Globulin 3.8 g/dL (2.2-4.2); Glucose 86 mg/dL (74-106); Potassium 3.1 mmol/L (3.5-5.1); Protein, Total 7.5 g/dL (6.4-8.2); Sodium Level 140 mmol/L (136-145)
[2023-01-28 12:12] LABS: Hemoglobin A1c 4.8 % (3.8-5.6)
[2023-01-31 04:06] LABS: Anti-Centromere B Ab <0.2 AI (0.0-0.9); Anti-Chromatin <0.2 AI (0.0-0.9); Anti-Jo <0.2 AI (0.0-0.9); Anti-Scleroderma-70 AB <0.2 AI (0.0-0.9); Beef <0.10 kU/L (Class 0); Corn <0.10 kU/L (Class 0); Egg, Whole <0.10 kU/L (Class 0); Milk (Cow) <0.10 kU/L (Class 0); Peanut <0.10 kU/L (Class 0); Pork <0.10 kU/L (Class 0); RNP Ab <0.2 AI (0.0-0.9); SJOGREN'S Anti-SS-A test < 0.2 AI (0.0-0.9); SJOGREN'S Anti-SS-B test < 0.2 AI (0.0-0.9); Smith Ab <0.2 AI (0.0-0.9); Soybean <0.10 kU/L (Class 0); Wheat <0.10 kU/L (Class 0)
[2023-01-31 09:08] LABS: Anti-dsDNA Ab <1 IU/mL (0-9); Chocolate <0.10 kU/L (Class 0)
[2023-02-01 18:07] LABS: Cytoplasmic Ab (C-ANCA) <1:20 titer (Neg:<1:20); Endomysial Antibody IgA Negative (Negative); Immunoglobulin A 252 mg/dL (87-352)
[2023-02-01 20:08] LABS: Gastrin, Serum 43 pg/mL (0-115); Perinuclear Ab (P-ANCA) <1:20 titer (Neg:<1:20); t-Transglutaminase IgA <2 U/mL (0-3)
== END | disposition home or self-care (01) ==
LOC: LAB 10:25
PROVIDERS: PCP Internal Medicine; Referring Provider Internal Medicine Gastroenterology; Visit Provider Internal Medicine Gastroenterology
DX: K31.84 Gastroparesis (principal)
CPT/HCPCS: 36415; 80053; 82784; 82941; 83036; 83516; 85025; 85652; 86003; 86005; 86140; 86225; 86235; 86255; 86256

== ENCOUNTER → 2023-03-12 | Outpatient (CLI) | payer BC, SELFPAY ==
[2023-03-12 13:28] LABS: Potassium 3.8 mmol/L (3.5-5.1)
== END | disposition home or self-care (01) ==
LOC: LAB 12:36
PROVIDERS: PCP Internal Medicine; Referring Provider Internal Medicine Gastroenterology; Visit Provider Internal Medicine Gastroenterology
DX: E87.6 Hypokalemia (principal)
CPT/HCPCS: 36415; 84132

== ENCOUNTER → 2023-03-24 | Outpatient (CLI) | payer BC, SELFPAY ==
--- NOTE | 2023-03-24 13:58 | US_ITS ---
STUDY: THYROID ULTRASOUND REASON FOR EXAM: Female, 37 years old. Thyromegaly. TECHNIQUE: Ultrasound evaluation of the thyroid was performed with real-time and static mariscal-scale imaging. COMPARISON: None. FINDINGS: RIGHT LOBE: The right lobe of the thyroid gland measures 5.3 x 1.8 x 1.7 cm. There is a homogeneous echotexture. There are no demonstrated solid, cystic or complex lesions. Increased vascularity on Doppler imaging. LEFT LOBE: The left lobe of the thyroid gland measures 5.3 x 1.7 x 1.9 cm. There is a homogeneous echotexture. There are no demonstrated solid, cystic or complex lesions. Increased vascularity on Doppler imaging. ISTHMUS: The isthmus measures 0.4 cm. The regional lymph nodes are normal. US/Thyroid IMPRESSION: Prominent thyroid with markedly increased vascularity. Question thyroiditis. Electronically Signed: Mika Geronimo DO at 22:17 EDT ,
== END | disposition home or self-care (01) ==
LOC: US 13:56
PROVIDERS: PCP Internal Medicine; Referring Provider Internal Medicine; Visit Provider Internal Medicine
DX: E01.0 Iodine-deficiency related diffuse (endemic) goiter (principal)
CPT/HCPCS: 76536

== ENCOUNTER 2023-04-15 12:11 | Day surgery (SDC) | payer BC, SELFPAY ==
--- NOTE | 2023-04-14 12:36 | PCM.HP.BLA ---
History and Physical Date of Admission: 04/15/23 Pre-Op History and Physical ? HPI: The patient is a 37 year old female presenting for pre-operative visit. She is scheduled for hysteroscopy, Maria C ablation, for AuB on 04/15/23. Procedure discussed along with risks, benefits and complications. Other alternatives discussed for management. Consent form signed? Yes. ? ? PAST MEDICAL HISTORY PAST MEDICAL HISTORY Diagnosis Date ? Anemia ? ? Factor V Leiden mutation (HCC) ? ? FRACTURE ? ? ANKLE ? Gastroparesis ? ? IBS (irritable bowel syndrome) ? ? Lactose intolerance ? ? Thyromegaly 02/03/2016 ? ? PAST SURGICAL HISTORY PAST SURGICAL HISTORY Procedure Laterality Date ? HYSTEROSCOPY, DIAGNOSTIC (SEPARATE ? 09/28/2019 ? Hysteroscopy D&C at [facility]-Dr. Cox ? ORAL SURGERY PROCEDURE ? 08/2022 ? dental implants ? PAST SURGICAL HISTORY OF ? ? ? RIGHT ANKLE ? UNSPECIFIED ORAL SURGERY PROCEDURE, BY REPORT ? ? ? [place] ? ? ? CURRENT MEDICATIONS Current Outpatient Medications Medication Sig Dispense Refill ? sertraline HCl (ZOLOFT ORAL) Take by mouth. ? ? ? omeprazole (PRILOSEC) 40 mg capsule Take by mouth. ? ? ? promethazine (PHENERGAN) 25 mg tablet Take 25 mg by mouth every 6 hours as needed. ? ? ? No current facility-administered medications for this visit. ? ? ALLERGIES: Ciprofloxacin, Amoxicillin, and Gluten ? PERSONAL HISTORY: SOCIAL HISTORY Social History ? Tobacco Use ? Smoking status: Never ? Smokeless tobacco: Never Vaping Use ? Vaping Use: Never used Substance Use Topics ? Alcohol use: No ? Drug use: No ? FAMILY HISTORY: FAMILY HISTORY FAMILY HISTORY Problem Relation Age of Onset ? Hypertension Mother ? ? Lipids Mother ? ? Seizures Father ? ? DUE TO ACCIDENT ? Blood Disease Father ? ? FACTOR V LEIDEN ? Blood Disease Brother ? ? FACTOR V LEIDEN ? Breast Cancer Maternal Grandmother ? ? Alcohol/Drug Maternal Grandfather ? ? Diabetes Maternal Grandfather ? ? Heart Paternal Grandfather ? ? Aneurysm Paternal Grandfather ? ? BRAIN ? Alzheimer's Disease Other ? ? MGGM ? ? REVIEW OF SYMPTOMS: negative except as noted above PHYSICAL EXAMINATION: ? VITALS: Blood pressure 104/68, weight 125 lb (56.7 kg), last menstrual period 03/11/2023. ? GENERAL: The patient is well nourished, well hydrated in no acute distress. , The patient is oriented to time, place, and person. NECK: FULL RANGE OF MOTION LUNGS: Clear to auscultation bilaterally. no wheezes, rhonchi or rales HEART: Regular rate and rhythm, Normal heart sounds, and No murmurs or gallops GENITALIA: Normal external genitalia, Urethral meatus normal, Bladder nontender, normal vagina and normal vaginal tone, normal cervix, normal uterus, size and consistency, normal adnexa without masses or tenderness, and perineum WNL ? ? IMPRESSION: 37yo with AUB ? PLAN: hysteroscopy and maria c endometrial ablation ? Pt has been counseled on risks/benefits and alternatives of surgery including but not limited to anesthesia, bleeding, infection, uterine perforation with subsequent injury to pelvic structures including bowel, bladder, ureters and vessels. Pt wishes to proceed with surgery at this time. ? Pre and post op instructions reviewed ? EMB done today ? I have reviewed and updated past medical and surgical history, medications and allergies Chio Cox MD
[2023-04-15] VITALS (7 sets, daily range): BP systolic 85–115; BP diastolic 51–81; PULSE 50–79; RESP 12–18; TEMP 36.2–37.4; O2SAT 84–100; BMI 21.7
[2023-04-15] MEDS: Lactated Ringers 1,000 ML 15 ML IV ×2 (12:20→14:54)
[2023-04-15 13:00] LABS: Hematocrit 34.2 % (37-47); Hemoglobin 10.8 g/dL (12.0-15.0); Mean Corp Hgb Conc 31.6 g/dL (32-36); Mean Corpuscular Hgb 28.1 pg (27.0-32.0); Mean Corpuscular Volume 88.8 fL (81-99); Mean Platelet Vol. 9.2 fl (6.2-12.0); Platelet Count 308 K/mm3 (150-450); RBC Distribution Width CV 12.6 % (11.6-14.6); RBC Distribution Width SD 41.1 fl (35.1-43.9); Red Blood Count 3.85 M/mm3 (4.2-5.4); White Blood Count 4.3 K/mm3 (4.4-11.0)
[2023-04-15 13:01] LABS: Internal QC Validated? YES +Cl - CLEAR BKGD; Pregnancy, Urine Negative Negative
--- NOTE | 2023-04-15 14:14 | OP.PCM_ITS ---
Report of Operation Date of Procedure: 04/15/23 Pre-Operative Diagnosis: AUB Post-Operative Diagnosis: same Surgery/Procedure Performed:: Hysteroscopy, maria c Endometrial Ablation Description of Surgical Findings:: Bilateral tubal ostia visualized. total Cavity length 9 cm. Surgeon: Chio Brown commercial loan administrator: None Type of Anesthesia: MAC Estimated Blood Loss (mL): <5 Fluids Replaced: 700 Description of Procedure: After informed consent was obtained patient taken to the operating room she is placed in supine position she is given anesthesia simply self insert she is prepped draped normal sterile fashion. Bladder was drained prior to the start of the procedure. At this time the weighted speculum was placed the posterior fornix of the vagina then a single-tooth tenaculum was used to grasp the anterior lip of the cervix. At this time the uterus was sounded to approximately 9 cm the endocervical canal sounded to 4 cm. Next cervix was dilated in incremental fashion. Once adequate dilatation was achieved the hysteroscope was inserted using normal saline as distention medium. On hysteroscopy there were no gross abnormalities. Both tubal ostia were visualized. At this time the Maria C device was opened. The Maria C was set at 5 cm. The device was activated. Prior to activation the field test was performed and cavity was intact. The device was then fired and activated for 120 seconds. Once the 120 seconds was completed the device was removed intact and the tenaculum was removed. Good hemostasis was appreciated. Weighted speculum was removed. Vaginal sweep was performed is negative. There were no complications. Anticipated normal postoperative course for this patient. Instrument and lap count were correct ?2. Grafts/Implants Used: none Procedure Start Time: 14:02 Procedure Stop Time: 14:11 Complications none Admit VTE Documentation VTE Present on Admission: Yes VTE Mechan Device Prophylaxis: SCD's VTE Pharm Prophylaxis ordered?: No
--- NOTE | 2023-04-15 14:17 | DCINST_ITS ---
Discharge Instructions Procedure D&C Diet Discharge Diet: No restrictions Activity May resume sexual activity in: 1 week Dressing / Incision Call your doctor if you observe: Fever of 101 or Higher, Inability to urinate, Using more than 1 pad per hour and Uncontrolled pain Follow Up Care Please Follow Up With: Chio Brown MD When: 1-2 weeks post OP if you need an appointment please call [phone] Test Results: Test results from this visit will be discussed in further detail at your follow- up appointment, if applicable. Discharge Plan Admission Attending Provider: Chio Brown Primary Care Provider: Myah Badillo Discharge Orders/Prescriptions Prescriptions: No Action omeprazole 40 mg capsule,delayed release(DR/EC) 40 mg PO DAILY promethazine 12.5 MG tablet 25 mg PO PRN PRN (Reason: Nausea) Zyrtec 10 mg Capsule 10 mg PO DAILY sertraline 50 mg Tablet 50 mg PO QHS Referrals / Follow Up: Myah Badillo DO [Primary Care Provider] - Disposition Discharge Orders: Discharge Patient (Routine); Ordered 04/15/23 Ordered By: Dr. Chio Brown
[2023-04-15] MEDS: HYDROcodone Bitartrate/Apap 5/325 Tablet PO (15:25)
== END 2023-04-15 16:27 | disposition home or self-care (01) ==
LOC: SDC 12:11 → AC 12:13
PROVIDERS: Anesthesiology; PCP Internal Medicine; Referring Provider Obstetrics & Gynecology; Visit Provider Obstetrics & Gynecology
PROC: 0U5B8ZZ Destruction of Endometrium, Via Natural or Artificial Opening Endoscopic (ICD-10-PCS; CPT 58558; principal; 2023-04-15 13:25)
DX: N93.9 Abnormal uterine and vaginal bleeding, unspecified (principal); K21.9 Gastro-esophageal reflux disease without esophagitis; F41.9 Anxiety disorder, unspecified; J45.909 Unspecified asthma, uncomplicated; Z86.16 Personal history of COVID-19; Z79.899 Other long term (current) drug therapy
CPT/HCPCS: 58563; 00952; 81025; 85027; J7120; J2405

== ENCOUNTER → 2023-06-15 | Outpatient (CLI) | payer BC, SELFPAY ==
--- NOTE | 2023-06-15 10:55 | US_ITS ---
STUDY: THYROID ULTRASOUND REASON FOR EXAM: Female, 37 years old. Thyroiditis, due now -- thyroiditis, due now TECHNIQUE: Ultrasound evaluation of the thyroid was performed with real-time and static mariscal-scale imaging. COMPARISON: Comparison is made with prior study of March 24, 2023. FINDINGS: RIGHT LOBE: The right lobe of the thyroid gland measures 5.1 cm x 2.1 cm x 1.7 cm. There is a homogeneous echotexture. There are no demonstrated solid, cystic or complex lesions. Increased vascularity. LEFT LOBE: The left lobe of the thyroid gland measures 4.9 cm x 1.9 cm x 1.7 cm. There is a homogeneous echotexture. There are no demonstrated solid, cystic or complex lesions. Increased vascularity. ISTHMUS: The isthmus measures 3.1 mm. The regional lymph nodes are normal. US/Thyroid IMPRESSION: Normal ultrasound examination of the thyroid. Increased vascularity. Electronically Signed: Vijay Cuevas MD at 15:10 EDT ,
== END | disposition home or self-care (01) ==
LOC: US 10:54
PROVIDERS: PCP Internal Medicine; Referring Provider Internal Medicine; Visit Provider Internal Medicine
DX: E06.9 Thyroiditis, unspecified (principal)
CPT/HCPCS: 76536

== ENCOUNTER → 2023-07-14 | Outpatient (CLI) | payer BC, SELFPAY ==
--- NOTE | 2023-07-14 07:21 | NM_ITS ---
CLINICAL: 37-year-old female with history of clinical gastroparesis. SOLID PHASE 99m Tc SULFUR COLLOID GASTRIC EMPTYING STUDY COMPARISON: Previous semisolid phase gastric emptying study dated 11/24/2022 FINDINGS: The patient was administered 1.0 mCi of 99m Tc sulfur colloid mixed with egg and consumed per os. Image acquisitions in the anterior-posterior projections were obtained for 233 minutes following meal consumption. There is prompt visualization of the stomach. There is no gastroesophageal reflux identified. First order kinetics are maintained throughout the duration of the acquisitions. The T ? raw data emptying was calculated to be 75.66 minutes, (Normal 65-110 minutes). 98 % emptying and 2.0 % retention are defined at 4 hours post meal ingestion. NM/Gastric Emptying Study IMPRESSION: 1. NORMAL 99m Tc sulfur colloid solid phase gastric emptying imaging examination. A. There is normal and preserved solid phase gastric emptying compared to normal controls with maintained first order kinetics throughout all components of the examination. (Isidoor et al, Gastroenterology 77: 75, 1979 Mary et al, Semin Nucl Med 12: 116, 1980 Fede et al, SN Procedure Guidelines Adult Solid Meal Gastric Emptying Study 3.0 [email or web address]). B. Greater than 90% emptying of the initial gastric contents at 4 hours post dose is consistent with normal solid phase gastric emptying which correlates with the results of the T ? emptying calculation. (Faith et al, J Nucl Med 48: 568, 2007). C. Overall compared to the previous semisolid phase emptying examination dated 11/24/2022, there is current normal solid phase gastric emptying as defined above. Electronically Signed: Osmin Brizuela DO at 21:05 EDT ,
== END | disposition home or self-care (01) ==
LOC: NM 07:20
PROVIDERS: PCP Internal Medicine; Referring Provider Internal Medicine Gastroenterology; Visit Provider Internal Medicine Gastroenterology
DX: R10.9 Unspecified abdominal pain (principal); K31.84 Gastroparesis
CPT/HCPCS: 78264; A9541

== ENCOUNTER → 2023-11-19 | Outpatient (CLI) | payer BC, SELFPAY ==
[2023-11-19 15:18] LABS: Estradiol 82.3 pg/mL; Free T3 2.4 pg/mL (2.18-3.98); LDH 185 U/L (84-246); Luteinizing Hormone 18.6 mIU/mL; T4 Total, Thyroxin 10.4 ug/dL (4.8-13.9); Thyroid Stim Hormone (TSH) 0.88 uIU/mL (0.358-3.74)
[2023-11-30 12:08] LABS: IgG, Quant 1453 mg/dL (586-1602); Immunoglobulin G, Subclass 1 874 mg/dL (248-810); Immunoglobulin G, Subclass 2 517 mg/dL (130-555); Immunoglobulin G, Subclass 3 49 mg/dL (15-102); Immunoglobulin G, Subclass 4 10 mg/dL (2-96); Testosterone, Free 0.15 ng/dL (0.10-0.85); Testosterone, Total 14 ng/dL (8-60)
== END | disposition home or self-care (01) ==
PROVIDERS: PCP Internal Medicine; Referring Provider Internal Medicine Gastroenterology; Visit Provider Internal Medicine Gastroenterology
DX: R10.9 Unspecified abdominal pain (principal)
CPT/HCPCS: 36415; 82670; 82784; 82787; 83001; 83002; 83615; 84146; 84402; 84403; 84436; 84439; 84443; 84481

== ENCOUNTER → 2024-02-02 | Outpatient (CLI) | payer BC, SELFPAY ==
[2024-02-02 13:35] LABS: Ferritin 9 ng/mL (8-252)
[2024-02-03 14:09] LABS: Anti-Centromere B Ab <0.2 AI (0.0-0.9); Anti-Chromatin <0.2 AI (0.0-0.9); Anti-Jo <0.2 AI (0.0-0.9); Anti-Mitochondrial AB <20.0 Units (0.0-20.0); Anti-Scleroderma-70 AB <0.2 AI (0.0-0.9); Anti-dsDNA Ab <1 IU/mL (0-9); RNP Ab <0.2 AI (0.0-0.9); SJOGREN'S Anti-SS-A test < 0.2 AI (0.0-0.9); SJOGREN'S Anti-SS-B test < 0.2 AI (0.0-0.9); Smith Ab <0.2 AI (0.0-0.9)
[2024-02-04 20:08] LABS: Angiotensin Convert Enzyme 62 U/L (14-82); Anti-Smooth Muscle ABS 8 Units (0-19); Ceruloplasmin 23.9 mg/dL (19.0-39.0); Copper, Serum or Plasma 100 ug/dL (80-158); Cytoplasmic Ab (C-ANCA) <1:20 titer (Neg:<1:20); Haptoglobin 113 mg/dL (33-278); IgG, Quant 1403 mg/dL (586-1602); Immunoglobulin G, Subclass 1 799 mg/dL (248-810); Immunoglobulin G, Subclass 2 480 mg/dL (130-555); Immunoglobulin G, Subclass 3 46 mg/dL (15-102); Immunoglobulin G, Subclass 4 9 mg/dL (2-96); Perinuclear Ab (P-ANCA) <1:20 titer (Neg:<1:20); Transferrin 270 mg/dL (192-364)
== END | disposition home or self-care (01) ==
LOC: LAB 11:33
PROVIDERS: PCP Internal Medicine; Referring Provider Internal Medicine Gastroenterology; Visit Provider Internal Medicine Gastroenterology
DX: R10.13 Epigastric pain (principal)
CPT/HCPCS: 36415; 82164; 82390; 82525; 82728; 82784; 82787; 83010; 83516; 84466; 86225; 86235; 86256

== ENCOUNTER 2024-08-30 12:00 | Outpatient (RCR) | payer BC, SELFPAY ==
--- NOTE | 2024-07-20 10:56 | HP.PTEVAL_ITS ---
Patient's Visit Information Visit Information Visit Information: BRENNEN ARRIAGA is a 38 year old F referred to Physical Therapy by KATYA TORRES with a diagnosis of R peroneal tendonitis. Date of Evaluation: 07/20/24 Physical Therapist: Abdifatah Mace, PT, ATC Visit Plan Frequency: 2-3x /Week Duration: 6 Weeks Plan: Begin with US, STM, US, and ice massage x 2 weeks. Progress the following 4 weeks with ECC peroneal tendon strengthening and balance/proprio activities f/b ice massage. Subjective Subjective: Pt reports rolling her ankle in April and was put into a boot once she saw the ortho doctor. She completed a couple physical therapy visits prior but it didn't get rid of the pain. Pt reports standing, walking, running, and occasionally stairs will cause pain but will use KT tape to help. Pt reports sitting and taping help to relieve her pain. Pt reports no numbness or tingling into her toes. 2/10 pain sitting at rest and 6-7/10 at it's worse. Pt reports feeling instability and weakness in the R ankle. Pt reports past R ankle surgery in 2008 on the peroneal tendon. Pain R ankle: Pain Intensity (Out of 10): 2 Pain Intensity Range: 7 Objective Objective: Neuro: B LE sensation is WNL to light touch. B achilles reflex= 2/3 ROM: L ankle DF= -2, PF= 55, Inv= 39, Ever= 16: R ankle DF= -2, PF= 55, Inv= 39, Ever= 22 degrees MMT: L ankle DF= 26, PF= 27, Inv= 18, Ever= 13: R ankle DF= 24, PF= 32, Inv= 11, Ever= 12 #F Palpation: Pt is sore along the peroneal tendon distribution. Pt is also sore on ant calcaneofib and ant tib/fib ligaments. No obvious deformity noted Special testing: Pos ant talor drawer test Balance/Special Test Scores Lower Extremity Functional Score: 49 Goals Goal 1:: Decrease R ankle pain x 50% to aid with ambulation tolerance Goal Time Frame: 4-6 Weeks Goal 2:: Increase R ankle DF ROM x 10 degrees to aid with restoring more normalized ankle dynamics Goal Time Frame: 4-6 Weeks Goal 3:: Increase R ankle Ever strength x 5 #F to aid with stair negotiation Goal Time Frame: 4-6 Weeks Goal 4:: I with HEP Goal Time Frame: 4-6 Weeks Rehabilitation Potential Physical Therapy Diagnosis: Pt has R ankle pain and difficulty with prolonged weightbearing activity secondary to R peroneal tendonitis. Rehabilitation Potential: Good Anticipated Interventions Patient/Client Instruction: Educate patient on: Condition and Plan of Care For the Purpose of:: To improve self management Therapeutic Exercise to Include: Strength training, Balance training, Flexibilty training, Passive ROM and Active ROM For the Purpose of:: To decrease pain, To increase ROM and To improve muscle performance and motor function Cryotherapy (ice pack, ice massage): Yes Ultrasound (thermal/non thermal): Yes For the Purpose of:: To decrease pain Text: Thank you for the opportunity to evaluate your patient. For Medicare and Medicare HMO plans, please review the plan of care and approve it. It will need to be FAXED BACK to us at [phone] for Medicare purposes. For Medicare only, by signing this I certify the plan of care. Please let me know if there are questions or concerns regarding this plan of care. Physician Signature: Date:
--- NOTE | 2024-08-30 12:31 | HP.PTDCSUM_ITS ---
Discharge Summary D/C summary: It has been my pleasure to treat BRENNEN ARRIAGA referred by KATYA TORRES, with the diagnosis of R peroneal tendonitis for a total of 7 visit(s). Discharge Date: Please see the following information for a summary of their discharge status. Subjective Subjective: I am still having trouble sleeping at night Pain R ankle: Pain Intensity (Out of 10): 2 Overall Improvement % Improvement: 10 Objective Objective/Function: R ankle pain ranges from 2-9/10 R ankle DF ROM 0 degrees R ankle eversion ankle strength: 30 #F Pt has made significant gains with strength, but nothing else is improving Goals Goal 1:: Decrease R ankle pain x 50% to aid with ambulation tolerance Goal Progress: Not Progressing Goal 2:: Increase R ankle DF ROM x 10 degrees to aid with restoring more no rmalized ankle dynamics Goal Progress: Not Progressing Goal 3:: Increase R ankle Ever strength x 5 #F to aid with stair negotiation Goal Progress: Goal Met Goal 4:: I with HEP Goal Progress: Goal Met Plan Plan: Discontinue secondary to lack of progress, return to doctor D/C Information d/c sentence: If there are questions or concerns regarding this patient's physical therapy, please feel free to call me at [phone]. Thank you for the referral of this patient. Sincerely, Abdifatah Mace, PT, ATC Balance/Gait/Functional tests Balance/Special Test Scores Lower Extremity Functional Score: 38 Improvement % Improvement: 10
== END 2024-08-30 19:00 | disposition home or self-care (01) ==
LOC: PT 12:00
PROVIDERS: PCP Internal Medicine
DX: M76.71 Peroneal tendinitis, right leg (principal)
CPT/HCPCS: 97035; 97110; 97140; 97161; 97530

== ENCOUNTER 2025-02-05 12:30 | Outpatient (RCR) | payer BC, SELFPAY ==
--- NOTE | 2024-12-14 15:03 | HP.PTEVAL_ITS ---
Patient's Visit Information Visit Information Visit Information: BRENNEN ARRIAGA is a 39 year old F referred to Physical Therapy by KATYA TORRES with a diagnosis of R peroneal ankle repair 10/20/25. Date of Evaluation: 12/14/24 Physical Therapist: Abdifatah Mace, PT, ATC Visit Plan Frequency: 2x /Week Duration: 4-6 Weeks Plan: Wean out of boot during therapy. R ankle PROM/mobs, R ankle stretching and strengthening, balance and proprio, gait training, bike, and HEP. Subjective Subjective: DOS: 10/20/25. Pt notes she had R ankle pain for a long time until having this surgery. Pt had R peroneal tendon debridement at that time. Pt notes she was placed into a splint for 3 weeks, and has been donning a CAM boot ever since. Pt reports she was told to wean out of the boot when tolerable, but notes she is still in a lot of pain at this time. Pt denies tingling or numbness in R LE at this time. Pt reports she has been having a lot of sleep difficulty at this time secondary to pain. 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 Pt notes this increases her pain. Pt has stairs that she has to negotiate daily and has significant difficulty with this task, sometimes having to crawl up her stairs. 2/10 while sitting here inb the clinic, 7/10 at worst (at night time) Pain R ankle: Pain Intensity (Out of 10): 2 Pain Intensity Range: 7 Objective Objective: TU.35 sec Neuro: B LE sensation is WNL to light touch. ROM: L ankle DF= 10, PF= 65 degrees; R ankle DF= 0, PF= 65 degrees MMT: L ankle DF= 33, PF= 35 #F; R ankle DF= 18, PF= 14 #F Balance/Special Test Scores Lower Extremity Functional Score: 34 Goals Goal 1:: Decrease R ankle pain x 50% to aid with sleep Goal Time Frame: 4-6 Weeks Goal 2:: Increase R ankle DF ROM x 10 degrees to aid with normalizing gait Goal Time Frame: 4-6 Weeks Goal 3:: Increase R ankle strength x 20#F to aid with stairs Goal Time Frame: 4-6 Weeks Goal 4:: I with HEP Goal Time Frame: 4-6 Weeks Rehabilitation Potential Physical Therapy Diagnosis: Pt has R anjkle pain, weakness, and limited ROM secondary to tendon repair Rehabilitation Potential: Good Anticipated Interventions Patient/Client Instruction: Educate patient on: Condition and Plan of Care For the Purpose of:: To improve self management Therapeutic Exercise to Include: Strength training, Balance training, Flexibilty training, Gait and locomotor training, Passive ROM and Active ROM For the Purpose of:: To decrease pain, To increase ROM and To improve muscle performance and motor function Cryotherapy (ice pack, ice massage): Yes For the Purpose of:: To decrease pain Text: Thank you for the opportunity to evaluate your patient. For Medicare and Medicare HMO plans, please review the plan of care and approve it. It will need to be FAXED BACK to us at [phone] for Medicare purposes. For Medicare only, by signing this I certify the plan of care. Please let me know if there are questions or concerns regarding this plan of care. Physician S ignature: Date:
--- NOTE | 2025-01-12 13:08 | HP.PTREVAL ---
Re-Evaluation Intro: KATYA TORRES, It has been my pleasure to treat BRENNEN ARRIAGA over the last 8 visits for R peroneal ankle repair 10/20/25. Please see the progress note below for an update on the physical therapy plan of care! Subjective Subjective: I am sore today. Objective Objective/Function: R ankle pain ranges from 4-8/10 R ankle DF ROM 6 degrees R ankle MMT: flex= 29, ext= 36 #F Pt is showing excellent progress at this time. Still lacks functional ROM and strength, and is still limited by pain Plan Plan Plan: 01/12/25- Cont with R ankle PROM/mobs, R ankle stretching and strengthening, balance and proprio, gait training, bike, and HEP. Balance/Gait/Functional tests Balance/Special Test Scores Lower Extremity Functional Score: 49 Goals Goals Goal 1:: Decrease R ankle pain x 50% to aid with sleep Goal Time Frame: 4-6 Weeks Goal Progress: Progressing Goal 2:: Increase R ankle DF ROM x 10 degrees to aid with normalizing gait Goal Time Frame: 4-6 Weeks Goal Progress: Progressing Goal 3:: Increase R ankle strength x 20#F to aid with stairs Goal Time Frame: 4-6 Weeks Goal Progress: Progressing Goal 4:: I with HEP Goal Time Frame: 4-6 Weeks Goal Progress: Progressing Anticipated Interventions Anticipated Interventions Patient/Client Instruction: Educate patient on: Condition and Plan of Care For the Purpose of:: To improve self management Therapeutic Exercise to Include: Strength training, Balance training, Flexibilty training, Gait and locomotor training, Passive ROM and Active ROM For the Purpose of:: To decrease pain, To increase ROM and To improve muscle performance and motor function Cryotherapy (ice pack, ice massage): Yes For the Purpose of:: To decrease pain Re-Evaluation Ending Re-evaluation ending: Please do not hesitate to contact me at [phone] by phone or if you have questions or concerns regarding this new plan of care! Sincerely, Abdifatah Mace, PT, ATC
--- NOTE | 2025-02-05 13:00 | HP.PTDCSUM ---
Discharge Summary D/C summary: It has been my pleasure to treat BRENNEN ARRIAGA referred by KATYA TORRES, with the diagnosis of R peroneal ankle repair 10/20/25 for a total of 11 visit(s). Discharge Date: Please see the following information for a summary of their discharge status. Subjective Subjective: I think I am doing good. I have exercises to continue with. Pain R ankle: Pain Intensity (Out of 10): 0 Overall Improvement % Improvement: 75 Objective Objective/Function: R ankle pain is 0/10 R ankle DF ROM 5 degrees R ankle MMT: DF= 28, PF= 35 #F I with HEP Goals Goal 1:: Decrease R ankle pain x 50% to aid with sleep Goal Progress: Progressing Goal 2:: Increase R ankle DF ROM x 10 degrees to aid with normalizing gait Goal Progress: Progressing Goal 3:: Increase R ankle strength x 20#F to aid with stairs Goal Progress: Progressing Goal 4:: I with HEP Goal Progress: Progressing Plan Plan: Discharge to HEP D/C Information d/c sentence: If there are questions or concerns regarding this patient's physical therapy, please feel free to call me at [phone]. Thank you for the referral of this patient. Sincerely, Abdifatah Mace, PT, ATC Balance/Gait/Functional tests Balance/Special Test Scores Lower Extremity Functional Score: 49 Improvement % Improvement: 75
== END 2025-02-05 13:16 | disposition home or self-care (01) ==
LOC: PT 12:30
PROVIDERS: PCP Internal Medicine
DX: Z09 Encounter for follow-up examination after completed treatment for conditions other than malignant neoplasm (principal)
CPT/HCPCS: 97110; 97140; 97161; 97530

== ENCOUNTER 2025-03-12 17:51 | Emergency (ER) | payer BC, SELFPAY ==
[2025-03-12 17:52] VITALS: BP 136/97; PULSE 72; RESP 15; TEMP 36.4; O2SAT 100; BMI 24.4
--- NOTE | 2025-03-12 18:50 | EKG12_ITS ---
Test Reason : NUMBNESS/TINGLING Blood Pressure : */* mmHG Vent. Rate : 63 BPM Atrial Rate : 63 BPM P-R Int : 140 ms QRS Dur : 78 ms QT Int : 430 ms P-R-T Axes : 62 41 42 degrees QTcB Int : 440 ms Normal sinus rhythm Normal ECG Confirmed by Mika Simon ([id number]), publishing editor SANA NAVARRO ([id number]) on 03/16/2025 11:54:21 AM Referred By: LORNE Confirmed By: Mika Simon
--- NOTE | 2025-03-12 18:50 | EDS_ITS ---
HPI History of Present Illness Chief Complaint: Numb/Ting Informant: patient Onset/Context/Timing Onset: Weeks Context: Gradual Onset Timing: Intermittent Current Severity: Mild Maximum Severity: Mild Narrative Narrative: 39-year-old female history of factor V Leiden trait but has never had any blood clots. There is a family history of blood clots. She has never had a stroke or mini stroke. She said for the last several weeks she has had intermittent left facial numbness. Tingling. It is off and on. Today it seemed to be a little worse. She denies any headaches or head trauma. She denies any weakness to her arms or legs. She denies any trouble walking or loss of dexterity. She denies any vision change or change in her speech. Prior similar symptoms: No Recent Illness/Hospitalization: No [facility] Medical History Wears contact lenses Wears glasses Wears dentures Anemia Dietary restriction History of hiatal hernia Asthma Non-smoker Hemorrhoids Celiac disease Hypoglycemia Lactose intolerance Acute gastritis without bleeding SARS (severe acute respiratory syndrome) IBS (irritable bowel syndrome) Non-celiac gluten sensitivity COVID-19 Epigastric pain Factor 5 Leiden mutation, heterozygous history right ankle surgery (~2008) Anxiety Acid reflux Diarrhea Nausea & vomiting Home Medications ?Medication ?Instructions ?Recorded ?Last Taken ?Type promethazine 12.5 mg tablet 25 mg PO PRN PRN Nausea Unknown History levothyroxine 50 mcg tablet 50 mcg PO DAILY 04/17/24 U nknown History omeprazole 40 mg capsule,delayed 20 mg PO DAILY Unknown History release scopolamine base 1 mg over 3 days 1 patch transdermal Q3D PRN for 11/28/24 Unknown Rx transdermal patch nausea #10 patches sertraline 100 mg tablet 100 mg PO DAILY 03/12/25 Unk nown History Allergy/AdvReac Type Severity Reaction Status Date / Time ciprofloxacin HCl (From Allergy Anaphylaxis Verified 03/12/25 17:52 Cipro) metoclopramide (From Reglan) AdvReac Intermediate tardive Verified 03/12/25 17:52 dyskinesia amoxicillin AdvReac Nausea Verified 03/12/25 17:52 Family History Father Bleeding disorder Brother Bleeding disorder Grandfather Diabetes Heart disease High cholesterol Grandmother High cholesterol Hypertension Mother High cholesterol Hypertension Surgical History Hx of oral surgery History of esophagogastroduodenoscopy (EGD) Hx of shoulder surgery History of hysteroscopy Social History Smoking Status: Never smoker alcohol intake: never substance use type: does not use ROS ROS ED ROS Narrative No recent illness. Subjective tingling left side of her body. Constitutional Constitutional ED: Denies chills or fever(s) Eyes Eyes: Denies blurry vision ENT ENT ED: Denies ear pain Cardiovascular Cardiovascular: Denies chest pain Respiratory/Chest Respiratory/Chest: Denies cough or dyspnea Gastrointestinal Gastrointestinal: Denies abdominal pain, diarrhea, nausea or vomiting Genitourinary Genitourinary ED: Denies dysuria Musculoskeletal Musculoskeletal: Denies arthralgias or back pain Integumentary Denies abscess or Abrasions Neurologic Neurologic: Reports paresthesias; Denies headache(s) Psychiatric Psychiatric: Denies anxiety or depression Endocrine Endocrinology: Denies cold intolerance Hematologic/Lymphatic Hematologic/Lymphatic: Reports none Allergic/Immunologic Allergic/Immunologic ED: Denies mouth swelling, tongue swelling or urticaria EXAM Physical Exam Narrative Exam Narrative: 39-year-old female sitting upright in bed. No acute distress. Vital signs stable afebrile. H EENT exam pupils round reactive light. Extra motions are intact. No facial droop. Tongue midline. Normal speech. She has sensation on both sides of her face. Able to open close her eyes by difficulty. Neck nontender. No lymphadenopathy. Lungs clear to auscultation. Heart regular rate and rhythm rate about 70 no murmur. Chest wall ribs nontender. Abdomen soft nontender. Moving all 4 extremities. Nontender no edema. Normal range of motion. Normal strength. Normal sensation. She has 5 out of 5 stuntman both hands. Dorsi plantarflexion intact. Fingertip to nose [id number] all within normal limits. Neurologic exam is normal. At most she has subjective decrease sensation left side of her face but she does have sensation. She has equal sensation in the arms and legs bilaterally. There is no motor loss or weakness. Const Vital Signs: 03/12/25 17:52 03/12/25 20:00 Temperature 97.6 F L Temperature Source Temporal Pulse Rate 72 67 Respiratory Rate 15 17 Blood Pressure 136/97 H 115/85 H Blood Pressure Mean 110 95 Pulse Ox 100 99 Oxygen Delivery Method Room Air Room Air Positive well nourished and well developed; Negative for obese, cachectic, contractures or unkempt General Appearance ED: well developed and NAD; Negative for unkempt, cachectic, contractures, cyanotic, diaphoretic or pallor Nutritional Appearance: Negative for cachectic or obese HEENT Reports moist mucous membranes Negative for trauma or tenderness Eyes PERRL and EOMs intact bilaterally General Eye ED: Negative for pale conjunctiva or scleral icterus Neck no lymphadenopathy, supple and no JVD General: Negative for tenderness Chest Wall inspection of chest normal and palpation of chest normal Resp normal respiratory effort and clear to auscultation bilaterally Effort and Inspection: Negative for retractions Auscultation: Negative for rales, rhonchi, wheezes or diminished lung sounds Cardio regular rate, regular rhythm, S1 normal heart sound, S2 normal heart sound and no murmurs Palpation: Negative for palpable S3 or palpable S4 Rate: Negative for bradycardia or tachycardic Rhythm: Negative for abnormal rhythm GI normal to inspection, nondistended, normoactive bowel sounds, non-tender, non- distended and no masses Auscultation: normoactive bowel sounds Palpation: soft; Negative for tender, guarding or rebound tenderness present Back/Spine no CVA tenderness General Back: Negative for CVA tenderness Cervical Spine: Negative for cervical spine tenderness Thoracic Spine / Upper Back: Negative for thoracic spinal tenderness or paraspinal muscle tenderness Lumbar Spine / Lower Back: Negative for lumbar spinal tenderness Extremity normal to inspection General Extremety ED: Negative for edema or tenderness General Extremity: Negative for edema Neuro oriented x3, CN's II-XII intact bilaterally and no sensory deficits noted Sensorium / Orientation: alert; Negative for orientation impaired, lethargic or stuporous Motor Exam: strength 5/5 throughout Psych mental status grossly normal Appearance: Negative for unkempt Skin no rashes or lesions noted, no wounds and skin turgor normal General Skin Exam: elasticity normal; Negative for jaundice or pallor Lesions: No lesion noted Rashes: No rashes noted Trauma: Negative for abrasion Wounds: Negative for wounds noted MDM MDM MDM Narrative Medical decision making narrative: 39-year-old female with subjective decrease sensation left side of her face. Her neurologic exam is completely normal. NIH is 0. CT of her brain screening labs will be obtained. My suspicion for stroke or mini stroke is extremely low because her exam is totally normal. Repeat exam patient doing well at 9:23 PM. Neurologic exam remains normal. I went over her test results with both her and her significant other. They are comfortable with her being discharged home with outpatient follow-up. History & Record Review Discussion w/independent historian: Patient Additional record(s) reviewed:: Prior inpatient record, Prior outpatient record, Prior ED visit and Prior labs Lab Data Attestation: I reviewed the patient's lab results. Lab results narrative: CBC shows white count 6.8. H&H 11.736. Platelets 373. Electrolytes sodium 138. Gap 8. Normal BUN of [address] Glucose [address]. [address] brain no acute abnormality. Labs: Laboratory Results - last 24 hr 03/12/25 18:22 WBC 6.8 RBC 3.66 L Hgb 11.7 L Hct 36.1 L MCV 98.6 MCH 32.0 MCHC 32.4 RDW Std Deviation 44.4 H RDW Coeff of [place] 12.1 Plt Count 373 MPV 9.9 Immature Gran % (Auto) 0.600 Neut % (Auto) 57.0 Lymph % (Auto) 33.3 [place] % (Auto) 6.3 Eos % (Auto) 1.9 Baso % (Auto) 0.9 Absolute Neuts (auto) 3.9 Absolute Lymphs (auto) 2.26 Nucleated RBC % 0 Sodium 138 Potassium 3.8 Chloride 103 Carbon Dioxide 26.5 Anion Gap 8 BUN 11 Creatinine 0.82 Estim Creat Clear Calc 77.70 Est GFR (MDRD) Non-Af 95 BUN/Creatinine Ratio 13.0 Glucose 86 Calcium 8.7 Radiography Diagnostic Testing: Clinical Impression(s) from Imaging Studies Brain CT 03/12/25 19:02 IMPRESSION: NO ACUTE FINDINGS Reading [facility] Rhythm Strip Rhythm Strip: Sinus Rhythm Rate: 63 Ectopy: None EKG Initial EKG: Attestation: I personally reviewed and interpreted this EKG as follows: Interpretation: Sinus Rhythm and No Acute Injury Pattern Comments: Normal sinus rhythm rate of 63 no acute signs of NH or ischemia. No dysrhythmia. Discharge Plan Triage Chief Complaint: Numb/Ting ED Provider: Lj Watson Dx/Rx/DC Orders Clinical Impression: Paresthesia, History of factor V Leiden mutation Instructions: ED Paraesthesias Prescriptions: No Action omeprazole 40 mg capsule,delayed release(DR/EC) 20 mg PO DAILY levothyroxine 50 mcg tablet 50 mcg PO DAILY scopolamine base 1 mg over 3 days patch 3 day 1 patch transdermal Q3D PRN (Reason: for nausea) Qty: 10 2RF promethazine 12.5 MG tablet 25 mg PO PRN PRN (Reason: Nausea) sertraline 100 mg tablet 100 mg PO DAILY Primary Care Provider: Myah Badillo Referrals: Myah Badillo DO [Primary Care Provider] - As soon as possible Activity Restrictions/Additional Instructions: Follow-up with your doctor. If the numbness continues he may have to be an MRI. Your labs today and CAT scan were normal. Print Language: Turkish Disposition Disposition: Home, Self Care
--- NOTE | 2025-03-12 19:02 | CT_ITS ---
PROCEDURE: BRAIN/HEAD WITHOUT CONTRAST 03/12/2025 REASON FOR EXAM: LEFT-SIDED TINGLING TECHNIQUE: Head CT without intravenous contrast. Coronal and Sagittal reconstruction series were provided. One or more dose reduction techniques were used (e.g., Automated exposure control, adjustment of the mA and/or kV according to patient size, use of iterative reconstruction technique. COMPARISON: None FINDINGS: * ACUTE: No acute infarct or hemorrhage. No mass effect or herniation. * BRAIN PARENCHYMA: Signal intensities are within normal limits for age. * VENTRICLES/EXTRA-AXIAL SPACES: No hydrocephalus or extra-axial fluid collections. * EXTRACRANIAL STRUCTURES: Visualized osseous structures are normal. Soft tissues are normal. CT/Brain/Head without Contrast IMPRESSION: NO ACUTE FINDINGS Reading Location: [facility]
[2025-03-12 19:12] LABS: Absolute Lymphocyte Count 2.26 X10^3/uL (0.83-4.51); Absolute Neutrophil Count 3.9 X10^3/uL (2.0-7.7); Basophil# 0.06 X10^3/uL; Basophil% 0.9 % (0-1); Eosinophil# 0.13 X10^3/uL; Eosinophils% 1.9 % (0-5); Hematocrit 36.1 % (37-47); Hemoglobin 11.7 g/dL (12.0-15.0); Lymphocyte # 2.26 X10^3/ul (0.83-4.51); Lymphocyte % 33.3 % (19-41); Mean Corp Hgb Conc 32.4 g/dL (32-36); Mean Corpuscular Volume 98.6 fL (81-99); Mean Platelet Vol. 9.9 fl (6.2-12.0); Monocyte# 0.43 X10^3/uL; Monocyte% 6.3 % (0-10); NRBC Flagged by Analyzer 0 % (0-5); Neutrophil # 3.87 X10^3/uL (2.7-7.7); Platelet Count 373 K/mm3 (150-450); RBC Distribution Width CV 12.1 % (11.6-14.6); RBC Distribution Width SD 44.4 fl (35.1-43.9); Red Blood Count 3.66 M/mm3 (4.2-5.4); White Blood Count 6.8 K/mm3 (4.4-11.0)
[2025-03-12 19:23] LABS: Anion Gap 8 (5-15); BUN 11 mg/dL (4-19); Calcium,Total 8.7 mg/dL (7.6-11.0); Carbon Dioxide 26.5 mmol/L (21.0-32.0); Chloride 103 mmol/L (98-108); Creatinine, Serum 0.82 mg/dL (0.70-1.20); EST Glomerular Filtration Rate 95 (>60); Glucose 86 mg/dL (70-99); Potassium 3.8 mmol/L (3.3-5.1); Sodium Level 138 mmol/L (133-145)
[2025-03-12 20:00] VITALS: BP 115/85; PULSE 67; RESP 17; O2SAT 99
[2025-03-12 21:37] VITALS: BP 118/81; PULSE 65; RESP 14; TEMP 36.6; O2SAT 97
== END 2025-03-12 21:38 | disposition home or self-care (01) ==
PROVIDERS: Emergency Provider Emergency Medicine; PCP Internal Medicine; Visit Provider Emergency Medicine
DX: R20.2 Paresthesia of skin (principal); Z86.16 Personal history of COVID-19
CPT/HCPCS: 70450; 80048; 85025; 93005; 99283

== ENCOUNTER → 2025-04-23 | Outpatient (CLI) | payer BC, SELFPAY ==
--- NOTE | 2025-04-23 13:06 | US_ITS ---
PROCEDURE: THYROID 04/23/2025 REASON FOR EXAM: THYROMEGALY TECHNIQUE: Multiple images of the thyroid were obtained. COMPARISON: Prior study dated June 15, 2023. FINDINGS: Right thyroid lobe size: 5.3 cm x 1.9 cm 1.7 cm Left thyroid lobe size: 5 cm x 1.8 cm 1.8 cm Isthmus: 0.33 cm Background parenchymal echotexture is homogeneous. No nodules are seen. US/Thyroid IMPRESSION: Mild thyromegaly. No nodule seen. Reading Location: [place] [id number]
== END | disposition home or self-care (01) ==
PROVIDERS: PCP Internal Medicine; Referring Provider Internal Medicine; Visit Provider Internal Medicine
DX: E01.0 Iodine-deficiency related diffuse (endemic) goiter (principal)
CPT/HCPCS: 76536